=== PATIENT | female | born 1940 | race Caucasian/White ===

== ENCOUNTER → 2017-04-04 | Outpatient (CLI) | payer MEDICARE ==
[~2017-04-04] MED LIST: ACET-2469 PO; ALPR0.254 PO; AMIO100T4 PO; ASP81TEC; CIPR-225 PO; DABI150C5 PO; DICY10CA12 PO; DLT240CCR; FLC100T; HYDR-3874 PO; LEVO100T7 PO; LEVO125T6 PO; LISI1TAB8 PO; LISI2.5T PO; LVT.15T; MELO15TA39 PO; NITR100C3; PRV20T; SOTA120T PO; [UNRECOGNIZED DRUG - OTHER] PO
--- NOTE | 2017-04-04 13:42 | Diagnostic Imaging Report ---
PROCEDURE: CT abdomen and pelvis without contrast. TECHNIQUE: Multiple contiguous axial images were obtained through the abdomen and pelvis without the use of intravenous contrast. INDICATION: Hematuria, frequent urinary tract infections. COMPARISON: No priors. FINDINGS: There is dilatation of the left-sided extrarenal pelvis without calyceal distention. Layering within the dependent portion of the left extrarenal pelvis is elongated stone or adjacent stone fragments layering dependently with an aggregate dimension of 4.5 x 1.7 mm. There is no perinephric or periureteric edema. These are nonobstructing. Remaining left ureter nondilated without stone. The left lower pole calyceal calculus measured 3 mm. The right kidney is without stone but does show a few parapelvic cysts. There are postsurgical changes to the urinary bladder which appeared otherwise normal. Unopacified liver, gallbladder, bile ducts, spleen, adrenals, and pancreas are unremarkable. Some very mild hazy induration and increased density along the fat of the mesenteric root with few tiny 4-5 mm scattered mesenteric lymph nodes. No suspicious abdominopelvic alena mass. There is no bowel, biliary or urinary tract obstruction. There is no ascites or fluid collection. No pneumatosis or free gas. IMPRESSION: Left-sided nephrolithiasis. There is dilatation of the left renal pelvis which is extrarenal but no calyceal distention or hydronephrosis. Within its dependent portion, layering stones or an elongated calculus noted, dimensions above, nonobstructing. Mild infiltration of the mesenteric root with scattered tiny shotty mesenteric nodes. No suspicious mass. Postoperative changes in the pelvis. No focal inflammatory process. Dictated by: Dictated on workstation # [id number]
== END ==
LOC: RAD 08:39
PROVIDERS: ATTEND Urology
DX: R31.9 Hematuria, unspecified (principal); N20.0 Calculus of kidney
CPT/HCPCS: 74176

== ENCOUNTER 2018-08-05 11:33 | Outpatient (CLI) | payer MEDICARE ==
[~2018-08-05] VITALS: Ht 157.5 cm; Wt 86.3 kg
[~2018-08-05 11:33] MED LIST changes: +HYDR-3870 PO; -HYDR-3874 PO
[2018-08-05 11:48] VITALS: BP 119/65
[2018-08-05] MEDS ORDERED: APIX5TAB PO (12:00)
[2018-08-05] MEDS ORDERED: ESTR0.5T PO (12:00)
[2018-08-05] MEDS ORDERED: TRIM100T PO (12:00)
--- NOTE | 2018-08-05 12:43 | Diagnostic Imaging Report ---
CLINICAL INDICATION: Preop right total knee. No chest complaints. EXAM: Chest x-ray, PA and lateral views. COMPARISONS: Chest x-ray dated 11/04/2016. FINDINGS: Lungs/pleura: Lungs are clear. There is no pneumothorax. There is no pleural effusion. Mediastinum: Unremarkable. Pulmonary vasculature: Unremarkable. Heart: Unremarkable. Bones/extrathoracic soft tissue: There are moderately hypertrophic degenerative osteophytes scattered throughout the thoracic spine. IMPRESSION: There is no radiographic evidence of acute cardiopulmonary process. Dictated by: Dictated on workstation # [id number]
[2018-08-05 12:55] LABS: BASOPHILS % (AUTO) 0 % (0-10); EOSINOPHILS # (AUTO) 0.1 10^3/uL (0.0-0.3); EOSINOPHILS % (AUTO) 1 % (0-10); HEMATOCRIT 39 % (35-52); HEMOGLOBIN 12.8 G/DL (11.5-16.0); LYMPHOCYTES # (AUTO) 0.9 X 10^3 (1.0-4.0); LYMPHOCYTES % (AUTO) 15 % (12-44); MEAN CORPUSCULAR HEMOGLOBIN 31 PG (25-34); MEAN CORPUSCULAR HGB CONC 33 G/DL (32-36); MEAN CORPUSCULAR VOLUME 93 FL (80-99); MEAN PLATELET VOLUME 10.5 FL (7.4-10.4); MONOCYTES # (AUTO) 0.6 X 10^3 (0.0-1.0); MONOCYTES % (AUTO) 10 % (0-12); NEUTROPHILS # (AUTO) 4.2 X 10^3 (1.8-7.8); NEUTROPHILS % (AUTO) 74 % (42-75); PLATELET COUNT 289 10^3/uL (130-400); RED BLOOD COUNT 4.16 10^6/uL (4.35-5.85); WHITE BLOOD COUNT 5.7 10^3/uL (4.3-11.0)
[2018-08-05 13:00] LABS: BILIRUBIN,URINE NEGATIVE (NEGATIVE); CLARITY,URINE CLEAR; COLOR,URINE YELLOW; GLUCOSE, URINE (UA) NEGATIVE (NEGATIVE); KETONES,URINE NEGATIVE (NEGATIVE); LEUKOCYTE ESTERASE ,URINE 3+ (NEGATIVE); NITRITE,URINE NEGATIVE (NEGATIVE); PH,URINE 5 (5-9); PROTEIN,URINE NEGATIVE (NEGATIVE); UROBILINOGEN,URINE NORMAL (NORMAL)
[2018-08-05 13:18] LABS: ALBUMIN 4.1 GM/DL (3.2-4.5); BILIRUBIN,TOTAL 0.8 MG/DL (0.1-1.0); CALCIUM 9.5 MG/DL (8.5-10.1); CREATININE SERUM 1.27 MG/DL (0.60-1.30); TOTAL PROTEIN 6.8 GM/DL (6.4-8.2)
[2018-08-05 13:19] LABS: INR 1.2 (0.8-1.4); PROTHROMBIN TIME PATIENT 15.4 SEC (12.2-14.7)
[2018-08-05 13:24] LABS: RBC,URINE RARE /HPF
[2018-08-05 13:25] LABS: BACTERIA,URINE NEGATIVE /HPF; WBC,URINE 25-50 /HPF
[2018-08-05 13:26] LABS: ERYTHROCYTE SEDIMENTATION RATE 40 MM/HR (0-30)
== END 2018-08-05 12:35 | disposition home or self-care (01) ==
LOC: PREOP 11:33
PROVIDERS: ATTEND Orthopaedic Surgery
DX: Z01.811 Encounter for preprocedural respiratory examination (principal); Z01.812 Encounter for preprocedural laboratory examination; Z11.2 Encounter for screening for other bacterial diseases; M17.11 Unilateral primary osteoarthritis, right knee; R53.83 Other fatigue; R82.99 Other abnormal findings in urine
CPT/HCPCS: 36415; 71046; 80053; 81000; 85025; 85610; 85652; 86850; 86900; 86901; 87081; 87088

== ENCOUNTER 2018-08-12 05:54 | Outpatient (CLI) | payer MEDICARE ==
--- NOTE | 2018-08-04 11:19 | HISTORY AND PHYSICAL ---
DATE OF SERVICE: ADMISSION HISTORY AND PHYSICAL DATE OF ADMISSION: 08/12/2018. This will be for inpatient admission for right total knee arthroplasty. The patient will require full inpatient admission due to comorbidities, pain management issues and physical therapy for gait training. HISTORY OF PRESENT ILLNESS: The patient is a 77-year-old female complains of progressively worsening right knee pain. She has been treated for years with injections. She has a history of chronic urinary tract infection on chronic suppressive therapy. She reports only one urinary tract infection in the recent past. She reports pain with activities. She reports activity limitations because of the knee. Due to functional impairment and failure to improve with conservative measures, the patient has elected to proceed with surgical intervention. REVIEW OF SYSTEMS: No chest pain, no shortness of breath. No dysuria. PAST MEDICAL HISTORY: Coronary artery disease, CKD stage III, hypertension, osteoarthritis, mitral regurgitation, atrial fibrillation, dyslipidemia, hypothyroidism. PAST SURGICAL HISTORY: Herniated diskectomy, thyroidectomy, hiatal herniorrhaphy, hysterectomy, bladder x3, breast biopsy, coronary catheterization. FAMILY HISTORY: Significant for ischemic heart disease, diabetes. PRIMARY CARE PROVIDER: Dr. Mendoza. MEDICATIONS: Lisinopril, meloxicam, Eliquis, estradiol, ondansetron, acetaminophen, levothyroxine, alprazolam, Tylenol. ALLERGIES: STATINS AND . SOCIAL HISTORY: The patient denies alcohol, tobacco use. RADIOGRAPHS: Reveal severe tricompartmental osteoarthritis. PHYSICAL EXAMINATION: GENERAL: The patient is a well-developed, well-nourished, no acute distress. HEENT: Normocephalic, atraumatic. Pupils are equal, round and reactive to light. Oropharynx is clear. NECK: Supple. No lymphadenopathy. LUNGS: Clear to auscultation bilaterally. HEART: Regular rate and rhythm. ABDOMEN: Soft, nontender, nondistended. EXTREMITIES: Right knee demonstrates varus alignment, moderate effusion. Range of motion is 0/3/120. She assistance to rise from a seated position. She ambulates with an antalgic gait. There is no varus valgus laxity. Negative anterior and posterior drawer. No skin lesions were noted. IMPRESSION: Severe right knee osteoarthritis, unresponsive to conservative measures. PLAN: Right total knee arthroplasty. The risks, benefits, options, ramifications and recovery have been discussed at length with the patient. She understands and wishes to proceed. Job ID: [id number] DocumentID: [id number] Dictated Date: 08/04/2018 10:35:16 [employer] Program Director Date: 08/04/2018 11:18:12 Dictated By: ALBERTO LOERA MD
[~2018-08-12] VITALS: Ht 157.5 cm; Wt 86.3 kg
[~2018-08-12 05:54] MED LIST changes: +APIX5TAB PO; +ESTR0.5T PO; +TRIM100T PO
--- OUTSIDE RECORDS SUMMARY | 2018-08-12 06:00 | XMS REPORT | Continuity of Care Document ---
Author Author [facility] Organization [facility] Address Unknown Phone Unavailable Allergies Active Description Code Type Severity Reaction Onset Reported/Identified Relationship to Patient Clinical Status Yes NKANo Known Allergies NKA Miscellaneous Allergy Mild N/A 09/28/2008 Yes Cifcbsa-Wdd-Kyp Reductase Inhibitor [id number] Drug Allergy Moderate WEAKNESS 11/04/2016 Yes aspirin [id number] Drug Allergy Unknown N/A 11/04/2016 Yes methocarbamol [id number] Drug Allergy Unknown N/A 11/04/2016 Medications There is no data. Problems Date Dx Coded Attending Type Code Diagnosis Diagnosed By 11/07/2014 KATHARINA NEW MD Ot 793.80 11/08/2014 KATHARINA NEW MD Ot 793.80 08/09/2015 Ot V76.12 11/04/2016 Ot 611.72 LUMP OR MASS IN BREAST 11/04/2016 Ot V76.12 OTH SCREEN MAMMO-MALIGN NEOPLASM OF [place] 11/04/2016 Ot 611.72 LUMP OR MASS IN BREAST 11/04/2016 Ot 793.80 UNSPEC ABNORMAL MAMMOGRAM 11/04/2016 Ot 793.89 OTH (ABN) FINDINGS ON RADIOLOGICAL EXAMI 11/04/2016 Ot V76.12 OTH SCREEN MAMMO-MALIGN NEOPLASM OF [place] 11/04/2016 Ot 787.60 FULL INCONTINENCE OF FECES 11/04/2016 Ot V72.84 EXAM PRE- OPERATIVE NOS 11/04/2016 Ot 793.89 OTH (ABN) FINDINGS ON RADIOLOGICAL EXAMI 11/04/2016 Ot V67.9 FOLLOW-UP EXAM NOS 11/04/2016 KATHARINA NEW MD Ot V76.12 OTH SCREEN MAMMO-MALIGN NEOPLASM OF [place] 11/04/2016 KATHARINA NEW MD Ot V76.12 OTH SCREEN MAMMO-MALIGN NEOPLASM OF [place] 11/04/2016 KATHARINA NEW MD Ot 793.80 UNSPEC ABNORMAL MAMMOGRAM 11/04/2016 VIRGEN SINGLETON, KATHARINA Garsia Ot 793.80 UNSPEC ABNORMAL MAMMOGRAM 11/04/2016 Ot V76.12 OT SCREEN MAMMO-MALIGN NEOPLASM OF [place] 11/04/2016 YUNG PIÑA MD Ot N81.10 CYSTOCELE, UNSPECIFIED 11/04/2016 YUNG PIÑA MD Ot R32 UNSPECIFIED URINARY INCONTINENCE 11/04/2016 YUNG PIÑA MD Ot Z01.810 ENCOUNTER FOR PREPROCEDURAL CARDIOVASCUL 11/04/2016 YUNG PIÑA MD Ot Z01.811 ENCOUNTER FOR PREPROCEDURAL RESPIRATORY 11/04/2016 YUNG PIÑA MD Ot Z01.812 ENCOUNTER FOR PREPROCEDURAL LABORATORY E 11/04/2016 YUNG PIÑA MD Ot Z11.2 ENCOUNTER FOR SCREENING FOR OTHER BACTER 11/05/2016 YUNG PIÑA MD Ot N81.10 CYSTOCELE, UNSPECIFIED 11/05/2016 YUNG PIÑA MD Ot R32 UNSPECIFIED URINARY INCONTINENCE 11/05/2016 YUNG PIÑA MD Ot Z01.810 ENCOUNTER FOR PREPROCEDURAL CARDIOVASCUL 11/05/2016 YUNG PIÑA MD Ot Z01.811 ENCOUNTER FOR PREPROCEDURAL RESPIRATORY 11/05/2016 YUNG PIÑA MD Ot Z01.812 ENCOUNTER FOR PREPROCEDURAL LABORATORY E 11/05/2016 YUNG PIÑA MD Ot Z11.2 ENCOUNTER FOR SCREENING FOR OTHER BACTER 11/05/2016 YUNG PIÑA MD Ot N81.10 CYSTOCELE, UNSPECIFIED 11/05/2016 YUNG PIAÑ MD Ot R32 UNSPECIFIED URINARY INCONTINENCE 11/05/2016 YUNG PIÑA MD Ot Z01.810 ENCOUNTER FOR PREPROCEDURAL CARDIOVASCUL 11/05/2016 YUNG PIÑA MD Ot Z01.811 ENCOUNTER FOR PREPROCEDURAL RESPIRATORY 11/05/2016 YUNG PIÑA MD Ot Z01.812 ENCOUNTER FOR PREPROCEDURAL LABORATORY E 11/05/2016 YUNG PIÑA MD Ot Z11.2 ENCOUNTER FOR SCREENING FOR OTHER BACTER 11/10/2016 YUNG PIÑA MD Ot N81.10 CYSTOCELE, UNSPECIFIED 11/10/2016 YUNG PIÑA MD Ot R32 UNSPECIFIED URINARY INCONTINENCE 11/10/2016 YUNG PIÑA MD Ot Z01.810 ENCOUNTER FOR PREPROCEDURAL CARDIOVASCUL 11/10/2016 YUNG PIÑA MD Ot Z01.811 ENCOUNTER FOR PREPROCEDURAL RESPIRATORY 11/10/2016 YUNG PIÑA MD Ot Z01.812 ENCOUNTER FOR PREPROCEDURAL LABORATORY E 11/10/2016 YUNG PIÑA MD Ot Z11.2 ENCOUNTER FOR SCREENING FOR OTHER BACTER 11/13/2016 YUNG PIÑA MD Ot I10 ESSENTIAL (PRIMARY) HYPERTENSION 11/13/2016 YUNG PIÑA MD Ot I25.10 ATHSCL HEART DISEASE OF [place] CORONARY 11/13/2016 YUNG PIÑA MD Ot I48.91 UNSPECIFIED ATRIAL FIBRILLATION 11/13/2016 YUNG PIÑA MD Ot N81.10 CYSTOCELE, UNSPECIFIED 11/13/2016 YUNG PIÑA MD Ot R32 UNSPECIFIED URINARY INCONTINENCE 11/13/2016 YUNG PIÑA MD Ot Z79.899 OTHER [facility] (CURRENT) DRUG THERAPY 11/14/2016 YUNG PIÑA MD Ot I10 ESSENTIAL (PRIMARY) HYPERTENSION 11/14/2016 YUNG PIÑA MD Ot I25.10 ATHSCL HEART DISEASE OF [place] CORONARY 11/14/2016 YUNG PIÑA MD Ot I48.91 UNSPECIFIED ATRIAL FIBRILLATION 11/14/2016 YUNG PIÑA MD Ot N81.10 CYSTOCELE, UNSPECIFIED 11/14/2016 YUNG PIÑA MD Ot R32 UNSPECIFIED URINARY INCONTINENCE 11/14/2016 YUNG PIÑA MD, Ot Z79.899 OTHER [facility] (CURRENT) DRUG THERAPY 04/09/2017 YUNG PIÑA MD Ot N20.0 CALCULUS OF KIDNEY 04/09/2017 YUNG PIÑA MD Ot R31.9 HEMATURIA, UNSPECIFIED 04/29/2017 YUNG PIÑA MD Ot N20.0 CALCULUS OF KIDNEY 04/29/2017 YUNG PIÑA MD Ot R31.9 HEMATURIA, UNSPECIFIED 05/06/2017 YUNG PIÑA MD Ot N20.0 CALCULUS OF KIDNEY 05/06/2017 YUNG PIÑA MD Ot R31.9 HEMATURIA, UNSPECIFIED Procedures There is no data. Results Test Result Range Complete blood count (CBC) with automated white blood cell (WBC) differential - 11/04/16 15:20 Blood leukocytes automated count (number/volume) 7.0 10*3/uL 4.3-11.0 Blood erythrocytes automated count (number/volume) 4.00 10*6/uL 4.35-5.85 Venous blood hemoglobin measurement (mass/volume) 12.4 g/dL 11.5-16.0 Blood hematocrit (volume fraction) 39 % 35-52 Automated erythrocyte mean corpuscular volume 97 [foz_us] 80-99 Automated erythrocyte mean corpuscular hemoglobin (mass per erythrocyte) 31 pg 25-34 Automated erythrocyte mean corpuscular hemoglobin concentration measurement ( mass/volume) 32 g/dL 32-36 Automated erythrocyte distribution width ratio 13.5 % 10.0-14.5 Automated blood platelet count (count/volume) 239 10*3/uL 130-400 Automated blood platelet mean volume measurement 11.3 [foz_us] 7.4-10.4 Automated blood neutrophils/100 leukocytes 78 % 42-75 Automated blood lymphocytes/100 leukocytes 12 % 12-44 Blood monocytes/100 leukocytes 9 % 0-12 Automated blood eosinophils/100 leukocytes 1 % 0-10 Automated blood basophils/100 leukocytes 0 % 0-10 Blood neutrophils automated count (number/volume) 5.4 10*3 1.8-7.8 Blood lymphocytes automated count (number/volume) 0.8 10*3 1.0-4.0 Blood monocytes automated count (number/volume) 0.6 10*3 0.0-1.0 Automated eosinophil count 0.1 10*3/uL 0.0-0.3 Automated blood basophil count (count/volume) 0.0 10*3/uL 0.0-0.1 Comprehensive metabolic panel - 11/04/16 15:20 Serum or plasma sodium measurement (moles/volume) 144 mmol/L 135-145 Serum or plasma potassium measurement (moles/volume) 4.3 mmol/L 3.6-5.0 Serum or plasma chloride measurement (moles/volume) 112 mmol/L 98-107 Carbon dioxide 23 mmol/L 21-32 Serum or plasma anion gap determination (moles/volume) 9 mmol/L 5-14 Serum or plasma urea nitrogen measurement (mass/volume) 18 mg/dL 7-18 Serum or plasma creatinine measurement (mass/volume) 1.48 mg/dL 0.60-1.30 Serum or plasma urea nitrogen/creatinine mass ratio 12 NRG Serum or plasma creatinine measurement with calculation of estimated glomerular filtration rate 34 NRG Serum or plasma glucose measurement (mass/volume) 73 mg/dL 70-105 Serum or plasma calcium measurement (mass/volume) 8.9 mg/dL 8.5-10.1 Serum or plasma total bilirubin measurement (mass/volume) 0.7 mg/dL 0.1-1.0 Serum or plasma alkaline phosphatase measurement (enzymatic activity/volume) 65 U/L 40-136 Serum or plasma aspartate aminotransferase measurement (enzymatic activity/ volume) 15 U/L 5-34 Serum or plasma alanine aminotransferase measurement (enzymatic activity/volume ) 10 U/L 0-55 Serum or plasma protein measurement (mass/volume) 6.5 g/dL 6.4-8.2 Serum or plasma albumin measurement (mass/volume) 3.9 g/dL 3.2-4.5 Methicillin resistant Staphylococcus aureus (MRSA) screening culture - 15:20 Methicillin resistant Staphylococcus aureus (MRSA) screening culture [facility] Complete blood count (CBC) with automated white blood cell (WBC) differential - 08/05/18 12:20 Blood leukocytes automated count (number/volume) 5.7 10*3/uL 4.3-11.0 Blood erythrocytes automated count (number/volume) 4.16 10*6/uL 4.35-5.85 Venous blood hemoglobin measurement (mass/volume) 12.8 g/dL 11.5-16.0 Blood hematocrit (volume fraction) 39 % 35-52 Automated erythrocyte mean corpuscular volume 93 [foz_us] 80-99 Automated erythrocyte mean corpuscular hemoglobin (mass per erythrocyte) 31 pg 25-34 Automated erythrocyte mean corpuscular hemoglobin concentration measurement ( mass/volume) 33 g/dL 32-36 Automated erythrocyte distribution width ratio 13.0 % 10.0-14.5 Automated blood platelet count (count/volume) 289 10*3/uL 130-400 Automated blood platelet mean volume measurement 10.5 [foz_us] 7.4-10.4 Automated blood neutrophils/100 leukocytes 74 % 42-75 Automated blood lymphocytes/100 leukocytes 15 % 12-44 Blood monocytes/100 leukocytes 10 % 0-12 Automated blood eosinophils/100 leukocytes 1 % 0-10 Automated blood basophils/100 leukocytes 0 % 0-10 Blood neutrophils automated count (number/volume) 4.2 10*3 1.8-7.8 Blood lymphocytes automated count (number/volume) 0.9 10*3 1.0-4.0 Blood monocytes automated count (number/volume) 0.6 10*3 0.0-1.0 Automated eosinophil count 0.1 10*3/uL 0.0-0.3 Automated blood basophil count (count/volume) 0.0 10*3/uL 0.0-0.1 Comprehensive metabolic panel - 08/05/18 12:20 Serum or plasma sodium measurement (moles/volume) 140 mmol/L 135-145 Serum or plasma potassium measurement (moles/volume) 4.0 mmol/L 3.6-5.0 Serum or plasma chloride measurement (moles/volume) 107 mmol/L 98-107 Carbon dioxide 22 mmol/L 21-32 Serum or plasma anion gap determination (moles/volume) 11 mmol/L 5-14 Serum or plasma urea nitrogen measurement (mass/volume) 20 mg/dL 7-18 Serum or plasma creatinine measurement (mass/volume) 1.27 mg/dL 0.60-1.30 Serum or plasma urea nitrogen/creatinine mass ratio 16 NRG Serum or plasma creatinine measurement with calculation of estimated glomerular filtration rate 41 NRG Serum or plasma glucose measurement (mass/volume) 99 mg/dL 70-105 Serum or plasma calcium measurement (mass/volume) 9.5 mg/dL 8.5-10.1 Serum or plasma total bilirubin measurement (mass/volume) 0.8 mg/dL 0.1-1.0 Serum or plasma alkaline phosphatase measurement (enzymatic activity/volume) 69 U/L 40-136 Serum or plasma aspartate aminotransferase measurement (enzymatic activity/ volume) 15 U/L 5-34 Serum or plasma alanine aminotransferase measurement (enzymatic activity/volume ) 13 U/L 0-55 Serum or plasma protein measurement (mass/volume) 6.8 g/dL 6.4-8.2 Serum or plasma albumin measurement (mass/volume) 4.1 g/dL 3.2-4.5 CALCIUM CORRECTED 9.4 mg/dL 8.5-10.1 PT panel in platelet poor plasma by coagulation assay - 08/05/18 12:20 Prothrombin time (PT) in platelet poor plasma by coagulation assay 15.4 s 12.2-14.7 INR in platelet poor plasma or blood by coagulation assay 1.2 0.8-1.4 Erythrocyte sedimentation rate by westergren method - 08/05/18 12:20 Erythrocyte sedimentation rate by westergren method 40 mm 0-30 Blood type T Indirect antibody screen panel - 08/05/18 12:20 ABO+Rh group AP NRG Blood group antibody screen NEGATIVE NRG Methicillin resistant Staphylococcus aureus (MRSA) screening culture - 12:20 Methicillin resistant Staphylococcus aureus (MRSA) screening culture NEG NRG Complete urinalysis with reflex to culture - 08/05/18 12:25 Urine color determination YELLOW NRG Urine clarity determination CLEAR NRG Urine pH measurement by test strip 5 5-9 Specific gravity of urine by test strip 1.020 1.016- 1.022 Urine protein assay by test strip, semi-quantitative NEGATIVE NEGATIVE Urine glucose detection by automated test strip NEGATIVE NEGATIVE Erythrocytes detection in urine sediment by light microscopy 2+ NEGATIVE Urine ketones detection by automated test strip NEGATIVE NEGATIVE Urine nitrite detection by test strip NEGATIVE NEGATIVE Urine total bilirubin detection by test strip NEGATIVE NEGATIVE Urine urobilinogen measurement by automated test strip (mass/volume) NORMAL NORMAL Urine leukocyte esterase detection by dipstick 3+ NEGATIVE Automated urine sediment erythrocyte count by microscopy (number/high power field) RARE NRG Automated urine sediment leukocyte count by microscopy (number/high power field ) [HPF] NRG Bacteria detection in urine sediment by light microscopy NEGATIVE NRG Squamous epithelial cells detection in urine sediment by light microscopy 10-25 NRG Crystals detection in urine sediment by light microscopy NONE NRG Casts detection in urine sediment by light microscopy PRESENT NRG Mucus detection in urine sediment by light microscopy SMALL NRG Complete urinalysis with reflex to culture YES NRG Hyaline casts detection in urine sediment by light microscopy 5-10 NRG Renal epithelial cells detection in urine sediment by light microscopy NONE NRG Bacterial urine culture - 08/05/18 12:25 Encounters ACCT No. Visit Date/Time Discharge Status Pt. Type Provider Facility Loc./Unit Complaint [id number] 04/04/2017 08:39:00 04/04/2017 23:59:59 CLS Outpatient YUNG PIÑA MD [facility] RAD HEMATURIA [id number] 11/12/2016 06:25:00 11/13/2016 12:40:00 DIS Outpatient YUNG PIÑA MD [facility] SDC CYSTOCELE [id number] 11/04/2016 14:00:00 11/04/2016 16:00:00 DIS Outpatient YUNG PIÑA MD [facility] PREOP CYSTOCELE [id number] 10/07/2014 08:48:00 10/07/2014 23:59:59 CLS Outpatient KATHARINA NEW MD [facility] RAD 3 MONTH FOLLOW UP [id number] 07/26/2014 13:14:00 07/26/2014 23:59:59 CLS Outpatient KATHARINA NEW MD [facility] RAD ABNORMAL MAMMO [id number] 07/12/2014 14:24:00 07/12/2014 23:59:59 CLS Outpatient KATHARINA NEW MD [facility] RAD SCREENING [id number] 07/09/2013 09:40:00 07/09/2013 23:59:59 CLS Outpatient KATHARINA NEW MD [facility] RAD SCREENING [id number] 08/12/2018 05:54:00 ACT Inpatient ALBERTO LOERA MD [facility] SURG OSTEOARTHRITIS OF RIGHT KNEE [id number] 08/05/2018 13:00:00 Document Registration [id number] 07/17/2015 10:42:00 Document Registration [id number] 02/11/2013 07:53:00 Document Registration [id number] 10/08/2012 06:57:00 Document Registration [id number] 10/07/2012 08:05:00 Document Registration [id number] 07/08/2012 12:10:00 Document Registration [id number] 10/22/2011 13:17:00 Document Registration [id number] 07/16/2011 12:59:00 Document Registration [id number] 06/28/2011 11:27:00 Document Registration
[2018-08-12 06:20] VITALS: BP 110/79
[2018-08-12] MEDS ORDERED: LACTATED RINGERS 1,000 ML IV PRN (06:34)
[2018-08-12] MEDS ORDERED: FAMOTIDINE 20MG/2ML IV (PEPCID) IV ONE (06:45)
[2018-08-12] MEDS ORDERED: SCOPOLAMINE 1.5 MG (TRANSDERM-SCOP) PATCH TOP ONE (06:45)
[2018-08-12] MEDS ORDERED: CEFUROXIME INJECTION 1,500 MG in NS (IVPB) 50 ML IV ONE (06:45)
[2018-08-12] MEDS ORDERED: ONDANSETRON 4 MG/2 ML (SDV) Z0FRAN IV ONE (06:45)
--- NOTE | 2018-08-12 07:18 | Progress Note-Standard ---
Standard Progress Note Progress Notes/Assess & Plan Date Seen by Provider: Aug 12, 2018 Time Seen by Provider: 07:10 Progress/Assessment & Plan Patient arrived to same day surgery for total knee replacement procedure. Patient noted to have an irregular wave form on Pulse oximetry wave form. Patient then hooked to 3 lead ecg in room. Noted to be in A-fib with a rate of 120-130 with apical/brachial disassociation. Spoke with Dr. Martins about situation and agreed patient needed to see physician to assist in rate control. Dr. Albrecht notified of situation. Spoke with patient and explained situation. Patient instructed to call Dr. Mora's office to set up a follow-up appoint and to call Dr. Albrecht's office after seen by Dr. Mora to set up Surgery. PEDRITO COTTRELL CRNA Aug 12, 2018 07:18
[2018-08-19] MEDS ORDERED: OXYC1TAB87 PO (09:12)
== END 2018-08-12 07:20 | disposition home or self-care (01) ==
LOC: UNDOADMIN 05:54 → 4TH 05:54 → SDC 05:54 → SURG 05:55 → 4TH 05:55 → UNDODISIN 07:20 → SDC 07:20 → EDSTATUS 08:00
PROVIDERS: ATTEND Orthopaedic Surgery
DX: M17.11 Unilateral primary osteoarthritis, right knee (principal); I48.91 Unspecified atrial fibrillation; Z53.09 Procedure and treatment not carried out because of other contraindication; I25.10 Atherosclerotic heart disease of native coronary artery without angina pectoris; I12.9 Hypertensive chronic kidney disease with stage 1 through stage 4 chronic kidney disease, or unspecified chronic kidney disease; N18.3 Chronic kidney disease, stage 3 (moderate); I34.0 Nonrheumatic mitral (valve) insufficiency; E78.5 Hyperlipidemia, unspecified; E03.9 Hypothyroidism, unspecified; Z79.01 Long term (current) use of anticoagulants
CPT/HCPCS: 86850; 86900; 86901

== ENCOUNTER 2018-08-19 08:25 | Inpatient (IN) | payer MEDICARE ==
[~2018-08-19] VITALS: Ht 157.5 cm; Wt 86.3 kg
[2018-08-19] MEDS ORDERED: CEFUROXIME INJECTION 1,500 MG in NS (IVPB) 50 ML IV ONE (08:45)
[2018-08-19 09:00] VITALS: BP 139/89
[2018-08-19] MEDS: LACTATED RINGERS 1,000 ML IV PRN ×2 (09:00→10:47)
--- NOTE | 2018-08-19 09:10 | Progress Note-Pre Operative ---
Pre-Operative Progress Note H&P Reviewed The H&P was reviewed, patient examined and no changes noted. Date Seen by Provider: Aug 19, 2018 Time Seen by Provider: 09:10 Date H&P Reviewed: Aug 19, 2018 Time H&P Reviewed: 09:10 Pre-Operative Diagnosis: right knee primary osteoarhtritis ALBERTO LOERA MD Aug 19, 2018 09:10
--- NOTE | 2018-08-19 09:11 | Progress Note-Post Operative ---
Post-Operative Progess Note Surgeon (s)/Clay Worker (s) Surgeon ALBERTO LOERA MD Clay Worker: Bob Dye Pre-Operative Diagnosis right knee primary osteoarhtritis Post-Operative Diagnosis right knee primary osteoarthritis Procedure & Operative Findings Date of Procedure 08/19/18 Procedure Performed/Findings right total knee arthroplasty Anesthesia Type GETA Estimated Blood Loss Estimated blood loss (mL): minimal Specimens/Packing Specimens Removed none Packing: none ALBERTO LOERA MD Aug 19, 2018 09:11
[2018-08-19] MEDS ORDERED: OXYC1TAB87 PO (09:12)
[2018-08-19] MEDS ORDERED: MIDAZOLAM 2 MG/2 ML (VERSED) VIAL ONE (09:13)
--- NOTE | 2018-08-19 09:14 | D/C HH Face to Face Order ---
D/C Face to Face Orders Instructions for Patient Patient Instructions/FollowUp: three weeeks Physician to follow Patient: three weeks Discharge Diet for Home: Regular Diet Patient Data-Allergies,Ht & Wt Patient Allergies: Coded Allergies: Tpxyxtx-Efl-Kgs Reductase Inhibitor (Verified Allergy, Intermediate, WEAKNESS, 11/04/16) aspirin (Unverified Allergy, Unknown, 11/04/16) methocarbamol (Unverified Allergy, Unknown, 11/04/16) Height (Feet): 5 Height (Inches): 2.00 Weight (Pounds): 190 Weight (Ounces): 5.0 Home Health Need/Face to Face Date of Face to Face: Aug 19, 2018 Clinical Findings: Instability, Muscle weakness, Pain with ambulation, Unsteady gait I have seen Pt [id number]: Yes Discharged To: Home Diagnosis/Conditions: right total knee arthroplasty Patient is Homebound due to: [place] fall risk due to instabilty, Muscle weakness , Pain w/ambulation Homebound Status Due to the above stated illness, injury or surgical procedure (medical condition or diagnosis) and associated clinical findings, the patient is homebound because of his/her inability to leave home except with aid of a supportive device and/or person AND leaving the home requires a considerable and taxing effort or is medically contraindicated. Pt req the following assistanc: [facility] Health Nursing Orders Home Health Services Order: Physical Therapy-Evaluate & Treat Therapy Orders Therapy Orders: Physical Therapy, PT to assess for OT Therapy Specific Orders: Eval assistive deivces, Teach enviro modifications/ safety, Gait training, Increase strength/endurance, Provider maintenance therapy , Restore ROM (DC right knee mira and apply steri strips 09/02/18) Certify Stmt I certify that this patient is under my care and that I, a nurse practitioner or a physician; a digital assistant working with me, had a face to face encounter that - meets the physician face to face encounter requirements with this patient as dated. ALBERTO LOERA MD Aug 19, 2018 09:14
[2018-08-19] MEDS ORDERED: diphenhydrAMINE 50 MG/ML INJ (BENADRYL) IVP PRN (09:15)
[2018-08-19] MEDS ORDERED: ACETAMINOPHEN 325 MG TABLET PO PRN (09:15)
[2018-08-19] MEDS ORDERED: ONDANSETRON 4 MG/2 ML (SDV) Z0FRAN IVP PRN ×3 (09:15→12:00)
[2018-08-19] MEDS ORDERED: NS (IVPB) 33 ML, ROPIVACAINE INJECTION 275 MG, EPINEPHrine 1 MG INJECTION 0.5 MG, morp... IU ONE ×4 (09:30)
[2018-08-19] MEDS ORDERED: FAMOTIDINE 20MG/2ML IV (PEPCID) ONE (09:36)
[2018-08-19] MEDS ORDERED: LIDOCAINE JELLY 2% (XYLOCAINE) 5 ML TUBE ONE (09:41)
[2018-08-19] MEDS ORDERED: proPOfol 200 MG/20 ML (DIPRIVAN) VIAL IV ONE ×2 (09:41→10:57)
[2018-08-19] MEDS ORDERED: LIDOCAINE PF 2% 2 ML (XYLOCAINE) VIAL ONE ×2 (09:41→10:57)
[2018-08-19] MEDS ORDERED: ONDANSETRON 4 MG/2 ML (SDV) Z0FRAN IV ONE (10:00)
[2018-08-19] MEDS ORDERED: FAMOTIDINE 20MG/2ML IV (PEPCID) IV ONE (10:00)
[2018-08-19] MEDS ORDERED: fentaNYL INJECTION 100 MCG/2 ML AMP ONE ×2 (10:10→10:47)
[2018-08-19] MEDS ORDERED: DEXAMETHASONE 10 MG/ML (DECADRON) 1 ML VIAL ONE (10:57)
[2018-08-19] MEDS ORDERED: ROCURONIUM 10 MG/ML 5 ML SYRINGE IV ONE (10:57)
[2018-08-19] MEDS ORDERED: SEVOFLURANE (ULTANE) 15 ML INHAL SOLN ONE ×3 (11:00→12:48)
[2018-08-19] MEDS ORDERED: GLYCOPYRROLATE 0.2 MG/ML (ROBINUL) 2 ML VIAL ONE ×2 (11:15→11:56)
[2018-08-19] MEDS ORDERED: NEOSTIGMINE 1 MG/ML 5 ML SYRINGE ONE (11:15)
[2018-08-19] MEDS ORDERED: SUGAMMADEX 500 MG/5 ML VIAL (BRIDION) IV ONE (11:39)
[2018-08-19] MEDS ORDERED: ESMOLOL 100 MG/10 ML (BREVIBLOC) VIAL ONE (11:57)
[2018-08-19] MEDS ORDERED: meTOprolol 5 MG/5 ML (LOPRESSOR) VIAL ONE (11:57)
[2018-08-19] MEDS ORDERED: morphine INJ 10 MG/ML 1ML (SYR OR VIAL) IVP ONE (12:00)
[2018-08-19] MEDS ORDERED: fentaNYL INJECTION 100 MCG/2 ML AMP IVP ONE (12:00)
[2018-08-19] MEDS ORDERED: MEPERIDINE (DEMEROL) INJ 50 MG/ML IVP ONE ×2 (12:00)
[2018-08-19] MEDS ORDERED: HYDROmorphone 2 MG/ML VIAL (DILAUDID) IV ONE (12:00)
[2018-08-19] MEDS ORDERED: LABETALOL HCL 20 MG/4 ML VIAL ONE (12:41)
--- NOTE | 2018-08-19 12:57 | Progress Note-Standard ---
Standard Progress Note Progress Notes/Assess & Plan Date Seen by a Provider: Aug 19, 2018 Time Seen by a Provider: 12:56 Progress/Assessment & Plan no complaints radiographs--HW well positioned without fracture RLE--2 plus DP pulse with brisk cap refill. Intact sensation throughout. Intact DF and PF of toes and ankle s/p RTKA mobilize as able ALBERTO LOERA MD Aug 19, 2018 12:57
[2018-08-19] MEDS ORDERED: LABETALOL HCL 20 MG/4 ML VIAL IV ONE (13:00)
--- NOTE | 2018-08-19 13:06 | OPERATIVE REPORT ---
DATE OF SERVICE: 08/19/2018 PREOPERATIVE DIAGNOSIS: Right knee primary osteoarthritis. POSTOPERATIVE DIAGNOSIS: Right knee primary osteoarthritis. PROCEDURE: Right total knee arthroplasty. SURGEON: Chadd Loera MD. DIRECTOR SECURITY MANAGEMENT: MATT Cordero, who assisted throughout the procedure and closed the incision. ANESTHESIA: General endotracheal by Bob Short CRNA. TOURNIQUET TIME: Approximately 65 minutes at 300 mmHg. ESTIMATED BLOOD LOSS: Minimal. DRAINS: None. COMPLICATIONS: None. POSTOPERATIVE PLAN: Routine protocol. The patient was transferred to the recovery room awake and in stable condition. MATERIALS: MicroPort cemented size 4 femur, cemented size 4 tibia with a 12 mm insert and a cemented size 32 patella. STATEMENT OF MEDICAL NECESSITY: The patient is a 77-year-old female with longstanding progressive right knee pain. She has been treated with multiple conservative modalities. Radiographs revealed severe medial and patellofemoral arthrosis. Due to functional impairment and failure to improve with conservative measures, the patient elected to proceed with surgical intervention. DESCRIPTION OF PROCEDURE: After risks and benefits of the procedure were discussed and questions were answered, an informed consent was signed and placed on the chart. The operative site was confirmed in the preoperative holding area and initialed by the surgeon. The patient was then transported to the operating room. After adequate levels of general endotracheal anesthetic were obtained, a timeout was called confirming the operative site. The right lower extremity was prepped and draped in the usual sterile fashion with the leg elevated and the knee flexed, tourniquet was inflated to 300 mmHg. A standard anterior approach was utilized. Hemostasis was obtained with cautery. Medial parapatellar arthrotomy was performed leaving a 1 cm cuff on the patella for later reattachment. A portion of the fat pad was resected. A subperiosteal release was performed in the proximal medial tibia being careful to stay on the bony surface. The ACL was absent. The intramedullary guide was passed into the femur. The distal cutting block was placed and the distal cut was made. The femur was sized to a size 4 and the 4 cutting block was placed parallel to the epicondylar axis. Cuts were then made from posterior to anterior. The trochlear guide was placed and trochlear cut was made. A subperiosteal release was then carefully performed on the posterior distal femur being careful to stay on the bony surface. Intramedullary guide was then passed into the tibia. The cutting block was placed. The drop venita transected the intermalleolar axis and the cut was made. The #4 baseplate was placed and again the drop venita transected the intermalleolar axis. This was prepared with the drill and keel punch. The trials were inserted. The patella was then prepared by resecting 10 mm off the undersurface using freehand technique. The peg guide was placed and peg holes were drilled. A 32 trial was placed. A 12 mm insert was placed and the knee was taken through a range of motion. Full extension was easily obtained greater than 120 degrees of flexion with gravity was easily obtained. There was no anterior/posterior laxity in flexion or extension. There was a trace valgus laxity in full extension, otherwise no varus or valgus laxity. The trials were removed. The joint was copiously irrigated with pulse lavage. The periarticular block was placed in the posterior capsule, medial and lateral retinaculum extensor mechanism and subcutaneous tissues. The bone ends were irrigated and dried. The tibial component was placed. Excessive cement was removed and then the superior surface was irrigated and dried. The polyethylene insert was placed. The distal femur was irrigated and dried and the femoral prosthesis was cemented in position again removing excess of cement. The knee was brought out into full extension. The undersurface of the patella was irrigated and dried. The patellar button was cemented into position. Once the cement had cured, the knee was taken through a range of motion with full extension easily obtained 120 degrees of flexion with gravity was easily obtained. The patella tracked well. There was no anterior/posterior or medial/lateral laxity in flexion or extension. The arthrotomy was closed with a #2 [place]. After further irrigating the joint, the knee was flexed. The repair was stable and the patella tracked well. The subcutaneous tissues were irrigated with pulse lavage using a total of 6 liters throughout the procedure. A 0 Vicryl was used for deep subcutaneous tissue, 2-0 Vicryl for the superficial subcutaneous tissue and mira were used on the skin. A soft dressing was applied, the tourniquet was deflated and the patient was transferred to the recovery room awake and stable condition. Job ID: [id number] DocumentID: [id number] Dictated Date: 08/19/2018 11:45:35 Vp Integration Date: 08/19/2018 13:06:04 Dictated By: CHADD LOERA MD
[2018-08-19 13:13] VITALS: BP 163/89
[2018-08-19] MEDS ORDERED: NS IV 1000 ML 1,000 ML ONE (13:22)
[2018-08-19] MEDS ORDERED: morphine PCA 30 MG/30 ML VIAL IV ONE (13:23)
[2018-08-19] MEDS: NS IV 1000 ML 1,000 ML IV SCH ×2 (13:35→22:12)
[2018-08-19] MEDS: morphine PCA 30 MG/30 ML VIAL IV PRN (13:39)
--- NOTE | 2018-08-19 14:09 | Diagnostic Imaging Report ---
INDICATION: Postoperative. TECHNIQUE: 2 post operative radiographs of the knee 2 1 PM CORRELATION STUDY: None FINDINGS: There are postsurgical changes of a total knee arthroplasty. Alignment is anatomic. Installed hardware appearing unremarkable. Small periarticular bone fragments. Overlying soft tissue gas collections are present. IMPRESSION: Postsurgical changes of a total knee replacement. Dictated by: Dictated on workstation # [id number]
[2018-08-19] MEDS ORDERED: ALPRAZolam 0.25 MG (XANAX) TAB PO PRN (15:15)
--- NOTE | 2018-08-19 15:40 | Consultation-Hospitalist ---
HPI History of Present Illness: HPI/Chief Complaint Pt is a 77yoCF with a PMH of atrial fibrillation, HTN, hypothyroidism who was admitted following right TKA. Her only complaint at this time is her pain is a 10/10 despite her [employer] WORK[employer]. Her RN has already received ordered for oral pain medication. 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 She is tearful through our conversation and history is somewhat limited due to that. She is unsure of her home medications at this time. I did call and speak with Dr Mora's nurse to confirm her cardiac meds. She is on Eliquis but not on any rate controlling medications at this time. I am consulted for medical management. Source: patient, family Date Seen 08/19/18 Attending Physician Chadd Albrecht MD PCP Yariel Mendoza MD Referring Physician Date of Admission Aug 19, 2018 at 8:25 am Home Medications & Allergies Home Medications Reviewed patient Home Medication Reconciliation performed by pharmacy medication reconciliations agronomy technician and/or nursing. Patients Allergies have been reviewed. Allergies Allergies Coded Allergies Vzrntts-Vxv-Ilu Reductase Inhibitor (Verified Allergy, Intermediate, WEAKNESS , 11/04/16) aspirin (Unverified Allergy, Unknown, 11/04/16) methocarbamol (Unverified Allergy, Unknown, 11/04/16) Past Fzhqpfn-Nodjcx-Weyvlt Hx Past Med/Social Hx: Reviewed and Corrections made Patient Social History Marrital Status: Alcohol Use: Denies Use Recreational Drug Use: No Smoking Status: Never a Smoker Physical Abuse Screen: No Sexual Abuse: No Recent Foreign Travel: No Contact w/other who traveled: No Recent Hopitalizations: No Recent Infectious Disease Expo: No Immunizations Up To Date Date of Pneumonia Vaccine: April 07, 2016 Date of Influenza Vaccine: Aug 18, 2018 Seasonal Allergies Seasonal Allergies: Yes Past Medical History Surgeries: Abdominal, Appendectomy, Bladder Surgery, Hysterectomy, Thyroidectomy Cardiac: Atrial Fibrillation, Hypertension Reproductive: No Sexually Transmitted Disease: No HIV/AIDS: No Genitourinary: UTI-Chronic Gastrointestinal: Chronic Diarrhea Musculoskeletal: Arthritis, Chronic Back Pain Endocrine: Hypothyroidsim Loss of Vision: Bilateral Hearing Impairment: Denies History of Blood Disorders: No Adverse Reaction to Blood Key: No (HAS HAD BLOOD WITH NO REACTION) Family History Reviewed Nursing Family Hx Cardiovascular disease G8 SISTER Diabetes mellitus 19 FATHER G8 BROTHER G8 SISTER Hypertension 19 FATHER G8 SISTER Myocardial infarction 19 FATHER G8 BROTHER Diabetes, Hypertension Review of Systems Constitutional: No chills, No fever EENTM: No blurred vision, No double vision, No nose congestion, No throat pain Respiratory: No cough, No dyspnea on exertion, No short of breath Cardiovascular: No chest pain, No edema, No palpitations Gastrointestinal: No abdominal pain, No constipation, No diarrhea, No nausea, No vomiting Genitourinary: No dysuria, No frequency Musculoskeletal: joint pain Skin: No lesions, No rash Psychiatric/Neurological: Denies Headache, Denies Numbness, Denies Tingling Physical Exam Physical Exam Vital Signs Vital Signs - First Documented 08/19/18 08/19/18 09:00 13:13 Temp 97.3 Pulse 115 Resp 20 B/P (MAP) 139/89 (106) Pulse Ox 96 O2 Delivery Room Air O2 Flow Rate 3.00 Capillary Refill : Height, Weight, BMI Height: 5'2.00" Weight: 190lbs. 5.0oz. 86.903134wk; 34.8 BMI Method: General Appearance: WD/WN, Mild Distress (tearful, appears to be in pain) HEENT: PERRL/EOMI, Moist Mucous Membranes Neck: Non Tender, Supple Respiratory: Lungs Clear, No Respiratory Distress Cardiovascular: Regular Rate, Rhythm, No Murmur Gastrointestinal: Normal Bowel Sounds, Non Tender, Soft Extremity: Normal Capillary Refill, No Calf Tenderness, Other (right knee in surgical dressing) Neurologic/Psychiatric: Alert, Oriented x3, Normal Mood/Affect Skin: Normal Color, Warm/Dry Results Results/Procedures Labs Patient resulted labs reviewed. Assessment/Plan Assessment and Plan Assess & Plan/Chief Complaint s/p TKA Diagnosis/Problems Diagnosis/Problems (1) Osteoarthritis of right knee Assessment & Plan: s/p TKA POD #0 PT/OT Morphine [employer] WORKER management per primary Qualifiers: Osteoarthritis type: primary Qualified Codes: M17.11 - Unilateral primary osteoarthritis, right knee (2) Atrial fibrillation Assessment & Plan: Regular rate on exam Will add labetolol prn Resume Eliquis when ok with surgery Will place on telemetry Qualifiers: Atrial fibrillation type: paroxysmal Qualified Codes: I48.0 - Paroxysmal atrial fibrillation (3) Essential (primary) hypertension Assessment & Plan: BP slightly elevated Labetolol prn for SBP >170 Resume home BP meds tomorrow when no longer nauseated (4) Hypothyroidism Assessment & Plan: Post surgical Resume synthroid Qualifiers: Hypothyroidism type: acquired Qualified Codes: E03.9 - Hypothyroidism, unspecified Clinical Quality Measures DVT/VTE Risk/Contraindication: Risk Factor Score Per Nursin RFS Level Per Nursing on Admit: 4+=Very High JOSE F GONZALEZ MD Aug 19, 2018 3:39 pm
--- NOTE | 2018-08-19 15:48 | Physical Therapy Evaluation ---
PT Evaluation-General Medical Diagnosis Admission Date Aug 19, 2018 at 08:25 Medical Diagnosis: R TKA Onset Date: Aug 19, 2018 Therapy Diagnosis Therapy Diagnosis: impaired strength, ROM, balance, and mobility s/p R TKA Height/Weight Height (Feet): 5 Height (Inches): 2.00 Weight (Pounds): 190 Weight (Ounces): 5.0 Precautions Precautions/Isolations: Standard Precautions Weight Bear Status Right Lower Extremity: Right Weight Bearing/Tolerated Left Lower Extremity: Left Full Weight Bearing Referral Physician: Bob Dye Reason for Referral: Evaluation/Treatment Medical History Reviewed History: Yes Social History Home: Single Level Current Living Status: Spouse Entry Into Home: Level Entry Prior/Core FIM Prior Level of Function Functional [place] Measure 0=Not Assessed/NA 4=Minimal Assistance 1=Total Assistance 5=Supervision or Setup 2=Maximal Assistance 6=Modified [place] 3=Moderate Assistance 7=Complete [place] Bed Mobility: 6 Transfers (B,C,W/C) (FIM): 6 Gait: 6 Patient was using a SPC PT Evaluation-Current Subjective pt in bed pre tx with emesis basin, agrees to PT, reports pain 10/10 R knee and feeling very nauseous. Patient is very shaky and unsteady. Pt/Family Goals to be independent at home Objective Patient Orientation: Person, Place, Situation Attachments: SCD's, Oxygen, Polar Pack, IV ROM/Strength ROM Lower Extremities R knee flexion 40 degrees, extension +10 Strength Lower Extremities NT Neuromuscular (Tone, Coordination, Reflexes) NT Sensory Vision: Functional Hearing: Functional Sensation Right Lower Extremit: Intact Sensation Left Lower Extremity: Impaired Sensation Lower Extremities impaired light touch sensation in R lateral calf and foot Transfers Functional [place] Measure 0=Not Assessed/NA 4=Minimal Assistance 1=Total Assistance 5=Supervision or Setup 2=Maximal Assistance 6=Modified [place] 3=Moderate Assistance 7=Complete [place] Transfers (B, C, W/C) (FIM): 3 Scootin pt very nauseous during treatment, unable to assess transfers Gait Comments/Gait Description pt very nauseous, unable to assess gait Treatment TKA protocol (AP, HS, QS, SLR, x10). CPM donned and set to 36/-2, pt in bed post tx w/ phone, call light, tray, all needs met. SCDs and polar pack on. Assessment/Needs impaired strength, ROM, balance, and mobility s/p R TKA Rehab Potential: Fair PT Short Term Goals Short Term Goals Time Frame: Aug 26, 2018 Transfers (B,C,W/C) (FIM): 4 Gait (FIM): 2 Distance (FIM): 1=up to 49 ft Gait Distance Comment: >50' Gait Level of Assist: 4 Gait Assistive Device: FWW PT Plan Problem List Problem List: Activity Tolerance, Functional Strength, Safety, Balance, Gait, Transfer, Bed Mobility, ROM Treatment/Plan Treatment Plan: Continue Plan of Care Treatment Plan: Bed Mobility, Education, Functional Activity Khris, Functional Strength, Gait, Safety, Therapeutic Exercise, Transfers Treatment Duration: Aug 26, 2018 Frequency: 11 times per week Estimated Hrs Per Day: .25 hour per day (15-30') Patient and/or Family Agrees t: Yes Safety Risks/Education Patient Education: Gait Training, Transfer Techniques, Reviewed Precautions, Reviewed Use of Ice, Correct Positioning, Safety Issues Teaching Recipient: Patient Teaching Methods: Demonstration, Discussion Response to Teaching: Reinforcement Needed Discharge Recommendations Plan Pt will perform bed mobility and transfer training, gait training, balance training, functional strengthening/AROM, endurance training, and education to be independent at home Therapy D/C Recommendations: Home w/ Family Support Time/GCodes Time In: 1515 Time Out: 1545 Total Billed Treatment Time: 20 Total Billed Treatment 1 visit EVL 15' EX 15' GILMER MENDEZ PT Aug 19, 2018 15:48
[2018-08-19] MEDS: meTOprolol 5 MG/5 ML (LOPRESSOR) VIAL IV PRN ×2 (16:42→19:03)
[2018-08-19 16:50] VITALS: BP 156/87
[2018-08-19 16:59] VITALS: BP 166/87
[2018-08-19 17:00] VITALS: BP 144/92
[2018-08-19] MEDS: CEFUROXIME INJECTION 750 MG in NS (IVPB) 50 ML IV SCH (17:08)
[2018-08-19 20:45] VITALS: BP 138/67
[2018-08-19] MEDS: SENNA W/DOCUSATE (SENOKOT S) TABLET PO SCH (22:12)
[2018-08-19] MEDS: oxyCODONE/APAP 5/325MG (PERCOCET 5) TABLET PO PRN (22:13)
[2018-08-20 00:32] VITALS: BP 158/79
[2018-08-20] MEDS: CEFUROXIME INJECTION 750 MG in NS (IVPB) 50 ML IV SCH (00:40)
[2018-08-20] MEDS: NS IV 1000 ML 1,000 ML IV SCH ×2 (02:26→15:03)
[2018-08-20] MEDS: morphine PCA 30 MG/30 ML VIAL IV PRN ×2 (02:46→15:08)
[2018-08-20] MEDS: oxyCODONE/APAP 5/325MG (PERCOCET 5) TABLET PO PRN ×2 (04:02→13:37)
[2018-08-20 04:38] VITALS: BP 147/80
[2018-08-20] MEDS: MULTIVIT W/MINERALS TAB (THERAGRAN M) PO SCH (06:09)
[2018-08-20] MEDS: LEVOTHYROXINE 100 MCG (LEVOTHROID) TAB PO SCH (06:09)
[2018-08-20 06:42] LABS: HEMOGLOBIN 12.2 G/DL (11.5-16.0)
--- NOTE | 2018-08-20 07:05 | Anesthesia-General Post-Op ---
General Patient Condition Mental Status/LOC: Same as Preop Cardiovascular: Satisfactory Nausea/Vomiting: Absent Respiratory: Satisfactory Pain: Controlled Complications: Absent Post Op Complications Complications None Follow Up Care/Instructions Patient Instructions None needed. Anesthesia/Patient Condition Patient Condition Patient is doing well, no complaints, stable vital signs, no apparent adverse anesthesia problems. No complications reported per nursing. DAYAN PONCE CRNA Aug 20, 2018 07:05
--- NOTE | 2018-08-20 07:59 | Progress Note-Standard ---
Standard Progress Note Progress Notes/Assess & Plan Date Seen by a Provider: Aug 20, 2018 Time Seen by a Provider: 07:58 Progress/Assessment & Plan no complaints radiographs--HW well positioned without fracture RLE--2 plus DP pulse with brisk cap refill. Intact sensation throughout. Intact DF and PF of toes and ankle s/p RTKA mobilize as able Final Diagnosis No complaints Vital Signs Date Time Temp Pulse Resp B/P (MAP) Pulse Ox O2 Delivery O2 Flow Rate FiO2 08/20/18 07:00 144 08/20/18 04:38 97.7 99 17 147/80 (102) 98 Nasal Cannula 3.00 08/20/18 02:47 18 08/20/18 02:46 18 08/20/18 02:29 93 Nasal Cannula 2.00 08/20/18 01:00 105 08/20/18 00:32 97.9 107 18 158/79 (105) 99 Nasal Cannula 3.00 08/19/18 22:08 99 Nasal Cannula 2.00 08/19/18 20:45 98.6 95 20 138/67 (90) 98 Nasal Cannula 3.00 08/19/18 20:10 98 Nasal Cannula 2.00 08/19/18 19:11 98 Nasal Cannula 2.00 08/19/18 19:07 18 08/19/18 19:00 107 08/19/18 17:25 96 Nasal Cannula 2.00 08/19/18 17:00 105 20 144/92 (109) 95 Nasal Cannula 3.00 08/19/18 16:59 98.1 117 20 166/87 (113) 96 Nasal Cannula 2.00 08/19/18 16:50 98.1 117 20 156/87 (110) 96 Nasal Cannula 2.00 08/19/18 16:22 133 08/19/18 13:39 18 08/19/18 13:39 16 08/19/18 13:30 Nasal Cannula 3.00 08/19/18 13:13 96.9 113 16 163/89 (113) 98 Nasal Cannula 3.00 08/19/18 09:00 97.3 115 20 139/89 (106) 96 Room Air I & O 08/20/18 07:00 Intake Total 2550 ml Output Total 1725 ml Balance 825 ml Laboratory Tests Test 08/20/18 06:19 Range/Units Hemoglobin 12.2 11.5-16.0 G/DL Hematocrit 36 35-52 % RLE--dressing intact. NV intact distally s/p JACOBA PT/OT ALBERTO LOERA MD Aug 20, 2018 07:59
[2018-08-20 08:00] VITALS: BP 152/77
[2018-08-20] MEDS: SENNA W/DOCUSATE (SENOKOT S) TABLET PO SCH ×2 (08:12→20:02)
[2018-08-20] MEDS ORDERED: ENOXAPARIN 30 MG/0.3 ML (LOVENOX) SYR SC SCH (08:15)
[2018-08-20] MEDS: DILTIAZEM 180 MG (CARDIZEM CD) CAP PO SCH (09:15)
--- NOTE | 2018-08-20 09:15 | Physical Therapy Daily Note ---
PT Daily Note-Current Subjective Patient just received oral pain medication and agrees to PT. Pain Numeric Pain Scale: 8 Location: Right Location Body Site: Knee Pain Description: Acute Mental Status Patient Orientation: Normal For Age Attachments: IV Transfers Functional [place] Measure 0=Not Assessed/NA 4=Minimal Assistance 1=Total Assistance 5=Supervision or Setup 2=Maximal Assistance 6=Modified [place] 3=Moderate Assistance 7=Complete IndependenceIRFPAI Quality Coding Scale 6 Independent with activity with or without an assistive device 5 Patient requires set up or clean up by helper. Patient completes activity by themselves 4 Supervision or touching assist (CGA). Finger provide cues , steadying assist 3 The helper provides less than half the effort to complete the activity 2 The helper provides more than half the effort to complete the activity 1 Dependent. The helper does all the effort to complete an activity 7 Patient refused to complete or attempt activity 9 The patient did not perform the activity before the current illness or injury 88 Not attempted due to Medical conditions or safety concerns Transfers (B, C, W/C) (FIM): 5 Scootin Rollin Supine to/from Sit: 5 Sit to/from Stand: 5 Bed to/from Chair: 5 Weight Bearing Right Lower Extremity: Right Weight Bearing/Tolerated Left Lower Extremity: Left Full Weight Bearing Gait Training Gait (FIM): 1 Distance (FIM): 1=up to 49 ft Distance: 10' Gait Level of Assist: 5 Gait Assistive Device: FWW slow Exercises Supine Ex: Ankle pumps, Quad Set, Heel Slides Supine Reps: 10 Seated Therapy Exercises: Ankle pumps, Long arc quads Seated Reps: 15 Assessment Patient is up in recliner with needs met. PT to increase activity as patient tolerates. PT Short Term Goals Short Term Goals Time Frame: Aug 26, 2018 Transfers (B,C,W/C) (FIM): 4 Gait (FIM): 2 Distance (FIM): 1=up to 49 ft Gait Distance Comment: >50' Gait Level of Assist: 4 Gait Assistive Device: FWW PT Plan Treatment/Plan Treatment Plan: Continue Plan of Care Treatment Plan: Bed Mobility, Education, Functional Activity Khris, Functional Strength, Gait, Safety, Therapeutic Exercise, Transfers Treatment Duration: Aug 26, 2018 Frequency: 11 times per week Estimated Hrs Per Day: .25 hour per day (15-30') Patient and/or Family Agrees t: Yes Time/GCodes Time In: 815 Time Out: 838 Total Billed Treatment Time: 23 Total Billed Treatment 1 visit FA 8 min EX 15 min WHITLEY DENNY PT Aug 20, 2018 09:14
[2018-08-20] MEDS ORDERED: meTOprolol 5 MG/5 ML (LOPRESSOR) VIAL IV NR ×2 (10:00→16:15)
[2018-08-20] MEDS: meTOprolol 5 MG/5 ML (LOPRESSOR) VIAL IV PRN (10:45)
[2018-08-20 12:00] VITALS: BP 154/81
--- NOTE | 2018-08-20 13:23 | Occupational Therapy Eval ---
OT Evaluation-General/PLF Medical Diagnosis Admission Date Aug 19, 2018 at 08:25 Medical Diagnosis: R TKA Onset Date: Aug 19, 2018 Therapy Diagnosis Therapy Diagnosis: decr self care, decr funct mobility Height/Weight Height (Feet): 5 Height (Inches): 2.00 Weight (Pounds): 190 Weight (Ounces): 5.0 Precautions Precautions/Isolations: Standard Precautions Weight Bear Status Weight Bearing Restriction: Weight Bearing/Tolerated Location Restriction: R LE Referral Physician: Bob Dye Referral Reason: Evaluation/Treatment Medical History Pertinent Medical History: Atrial Fib, Arthritis, HTN, Hypothroidism, OA Additional Medical History Chronic UTI, chronic diarrhea. Chronic back pain. Back surgery Current History Admitted for elective R total knee Reviewed History: Yes Social History Home: Single Level Current Living Status: Spouse Entry Into Home: Level Entry ADL-Prior Level of Function ADL PLOF Comments Pt reported that she has been able to manage all of her basic self care needs with modified techniques or extra time. She has also been able to care for home , do laundry, clean, with extra time. 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 DME/Equipment: Shower, Tall Toilet OT Current Status Subjective Pt seen in room, up in recliner, agreeable to OT. Pain rated 8/10, in her back and leg, not described. Appearance Alert, cooperative Mental Status/Objective Attachments: IV, Telemetry Current Glasses/Contacts: Yes Upper Extremity ROM Grossly WFL bilat Upper Extremity Strength Grossly 4+/5 bilat ADL-Treatment ADL-Current Pt was able to transfer with SBA with PT this am and walked SBA for about 10". She said she has been able to feed herself but just doesn't have an appetite. Functional [place] Measure 0=Not Assessed/NA 4=Minimal Assistance 1=Total Assistance 5=Supervision or Setup 2=Maximal Assistance 6=Modified [place] 3=Moderate Assistance 7=Complete IndependenceIRFPAI Quality Coding Scale 6 Independent with activity with or without an assistive device 5 Patient requires set up or clean up by helper. Patient completes activity by themselves 4 Supervision or touching assist (CGA). [place] provide cues , steadying assist 3 The helper provides less than half the effort to complete the activity 2 The helper provides more than half the effort to complete the activity 1 Dependent. The helper does all the effort to complete an activity 7 Patient refused to complete or attempt activity 9 The patient did not perform the activity before the current illness or injury 88 Not attempted due to Medical conditions or safety concerns Education OT Patient Education: Purpose of tx/functional activities, Rehab process Teaching Recipient: Patient, Significant Other Teaching Methods: Discussion Response to Teaching: Verbalize Understanding OT Short Term Goals Short Term Goals Transfers (B,C,W/C) (FIM): 4 OT Usp Goals Usp Goals Time Frame: Aug 24, 2018 Eating (FIM): 6 Grooming(FIM): 6 Bathing(FIM): 5 Upper Body Dressing(FIM): 5 Lower Body Dressing(FIM): 5 Toileting(FIM): 6 Toilet/Commode Transfer(FIM): 6 Shower Transfer(FIM): 5 Additional Goals: 1-Demonstrate ADL Tasks, 2-Verbalize Understanding, 3- ImproveStrength/Khris 1=Demonstrate adherence to instructed precautions during ADL tasks. 2=Patient will verbalize/demonstrate understanding of assistive devices/ modifications for ADL. 3=Patient will improve strength/tolerance for activity to enable patient to perform ADL's. OT Education/Plan Problem List/Assessment Assessment: Decreased Activ Tolerance, Dependent Transfers, Impaired Self-Care Skills Pt would benefit from skilled OT to increase her independence in basic self care to allow her to safely return home Discharge Recommendations Plan/Recommendations: Continue POC Treatment Plan/Plan of Care Treatment,Training & Education: Yes Patient would benefit from OT for education, treatment and training to promote independence in ADL's, mobility, safety and/or upper extremity function for ADL' s. Plan of Care: ADL Retraining, Functional Mobility Treatment Duration: Aug 24, 2018 Frequency: 4 times per week Estimated Hrs Per Day: .5 hour per day Agreement: Yes Rehab Potential: Fair Time/GCodes Start Time: 10:45 Stop Time: 10:59 Total Time Billed (hr/min): 14 Billed Treatment Time visit, 14 minutes evaluation low intensity LENCHO MCCARTHY OT Aug 20, 2018 13:23
--- NOTE | 2018-08-20 14:32 | Physical Therapy Daily Note ---
PT Daily Note-Current Subjective Patient initially declined PT due to right knee pain. PT educated patient on importance of exercise to receive maximum benefit of elective surgery. Patient agrees to PT. Pain Numeric Pain Scale: 8 Location: Right Location Body Site: Knee Pain Description: Acute Mental Status Patient Orientation: Normal For Age Attachments: IV Transfers Functional [place] Measure 0=Not Assessed/NA 4=Minimal Assistance 1=Total Assistance 5=Supervision or Setup 2=Maximal Assistance 6=Modified [place] 3=Moderate Assistance 7=Complete IndependenceIRFPAI Quality Coding Scale 6 Independent with activity with or without an assistive device 5 Patient requires set up or clean up by helper. Patient completes activity by themselves 4 Supervision or touching assist (CGA). Clint provide cues , steadying assist 3 The helper provides less than half the effort to complete the activity 2 The helper provides more than half the effort to complete the activity 1 Dependent. The helper does all the effort to complete an activity 7 Patient refused to complete or attempt activity 9 The patient did not perform the activity before the current illness or injury 88 Not attempted due to Medical conditions or safety concerns Transfers (B, C, W/C) (FIM): 5 Scootin Rollin Supine to/from Sit: 5 Sit to/from Stand: 5 Weight Bearing Right Lower Extremity: Right Weight Bearing/Tolerated Left Lower Extremity: Left Full Weight Bearing Gait Training Gait (FIM): 5 Distance (FIM): 3=150 ft Distance: 200' Gait Level of Assist: 5 Gait Assistive Device: FWW slow, steady, antalgic Exercises Supine Ex: Ankle pumps, Quad Set, Heel Slides, Straight leg raise Supine Reps: 10 Seated Therapy Exercises: Long arc quads Seated Reps: 15 Assessment Patient progressing with treatment plan. CPM 0-60 degrees with polar pack in place. Increase activity. PT Short Term Goals Short Term Goals Time Frame: Aug 26, 2018 Transfers (B,C,W/C) (FIM): 4 Gait (FIM): 2 Distance (FIM): 1=up to 49 ft Gait Distance Comment: >50' Gait Level of Assist: 4 Gait Assistive Device: FWW PT Plan Treatment/Plan Treatment Plan: Continue Plan of Care Treatment Plan: Bed Mobility, Education, Functional Activity Khris, Functional Strength, Gait, Safety, Therapeutic Exercise, Transfers Treatment Duration: Aug 26, 2018 Frequency: 11 times per week Estimated Hrs Per Day: .25 hour per day (15-30') Patient and/or Family Agrees t: Yes Safety Risks/Education Patient Education: Gait Training, Safety Issues Teaching Recipient: Patient Teaching Methods: Discussion Response to Teaching: Verbalize Understanding Discharge Recommendations Therapy D/C Recommendations: Home w/ Family Support, Physical Therapy Home Care Time/GCodes Time In: 1305 Time Out: 1340 Total Billed Treatment Time: 35 Total Billed Treatment 1 visit EX 15 min GT 10 min WHITLEY DENNY PT Aug 20, 2018 14:32
--- NOTE | 2018-08-20 15:05 | Progress Note-Hospitalist ---
Subjective HPI/CC On Admission Date Seen by Provider: Aug 20, 2018 Time Seen by Provider: 10:30 Pt is a 77yoCF with a PMH of atrial fibrillation, HTN, hypothyroidism who was admitted following right TKA. Her only complaint at this time is her pain is a 10/10 despite her QUILL CLEANER. Her RN has already received ordered for oral pain medication. Advised her to push QUILL CLEANER when needed to help control pain. She is tearful through our conversation and history is somewhat limited due to that. She is unsure of her home medications at this time. I did call and speak with Dr Mora's nurse to confirm her cardiac meds. She is on Eliquis but not on any rate controlling medications at this time. I am consulted for medical management. Subjective/Events-last exam Pt reports doing well. Having pain but controlled with QUILL CLEANER. Discussed with RN about a-fib. Rate has been elevated with ambulation. Objective Exam Vital Signs Vital Signs Date Time Temp Pulse Resp B/P (MAP) Pulse Ox O2 Delivery O2 Flow Rate FiO2 08/20/18 13:37 97.4 08/20/18 13:00 111 08/20/18 12:00 18 154/81 (105) 95 Nasal Cannula 3.00 Capillary Refill : General Appearance: No Apparent Distress, WD/WN Respiratory: Lungs Clear, No Respiratory Distress Cardiovascular: No Murmur, Irregularly Irregular Gastrointestinal: Normal Bowel Sounds, Soft Neurologic/Psychiatric: Alert, Oriented x3, Normal Mood/Affect Results/Procedures Lab Laboratory Tests 08/20/18 06:19 Patient resulted labs reviewed. Assessment/Plan Assessment and Plan Assess & Plan/Chief Complaint s/p TKA Diagnosis/Problems Diagnosis/Problems (1) Osteoarthritis of right knee Assessment & Plan: s/p TKA POD #1 PT/OT Morphine QUILL CLEANER management per primary Qualifiers: Osteoarthritis type: primary Qualified Codes: M17.11 - Unilateral primary osteoarthritis, right knee (2) Atrial fibrillation Assessment & Plan: Rates up to 160s when up with PT today Cardizem added orally Continue prn lopressor Cardiology consulted, appreciate recs Will resume Eliquis Qualifiers: Atrial fibrillation type: paroxysmal Qualified Codes: I48.0 - Paroxysmal atrial fibrillation (3) Essential (primary) hypertension Assessment & Plan: BP improved today with Lopressor and cardizem trend (4) Hypothyroidism Assessment & Plan: Post surgical Continue synthroid Qualifiers: Hypothyroidism type: acquired Qualified Codes: E03.9 - Hypothyroidism, unspecified Clinical Quality Measures DVT/VTE Risk/Contraindication: Risk Factor Score Per Nursin RFS Level Per Nursing on Admit: 4+=Very High JOSE F GONZALEZ MD Aug 20, 2018 3:05 pm
[2018-08-20 16:05] VITALS: BP 139/75
--- NOTE | 2018-08-20 16:11 | Consultation-Cardiology ---
HPI-Cardiology Cardiology Consultation Date of Consultation 08/20/18 Date of Admission Time Seen by Provider: 16:06 HPI 77 years old lady with a history of chronic atrial fibrillation, hypertension, had osteoarthritis, underwent TKA, she was noted to be in atrial fibrillation with rapid ventricular response today. Given IV Lopressor, started on Cardizem , heart rate is slightly better but still borderline tachycardic. She denied any chest pain. No palpitation. No syncope. Home Medications & Allergies Allergies: Coded Allergies: Ykazelr-Byc-Ats Reductase Inhibitor (Verified Allergy, Intermediate, WEAKNESS, 11/04/16) aspirin (Unverified Allergy, Unknown, 11/04/16) methocarbamol (Unverified Allergy, Unknown, 11/04/16) Home Medication List Reviewed: Yes KPI-Pongjv-Dyvuft Hx Patient Social History Marital Status: Alcohol Use: Denies Use Recreational Drug Use: No Smoking Status: Never a Smoker Recent Foreign Travel: No Recent Infectious Disease Expo: No Recent Hopitalizations: No Physical Abuse Screen: No Sexual Abuse: No Immunizations Up To Date Date of Pneumonia Vaccine: April 07, 2016 Date of Influenza Vaccine: Aug 18, 2018 Past Medical History Past medical history as described below Family Medical History Significant Family History: Diabetes, Hypertension Family History: Cardiovascular disease G8 SISTER Diabetes mellitus 19 FATHER G8 BROTHER G8 SISTER Hypertension 19 FATHER G8 SISTER Myocardial infarction 19 FATHER G8 BROTHER Review of Systems Constitutional: no symptoms reported, see HPI EENTM: see HPI, no symptoms reported Respiratory: see HPI; No cough, No dyspnea on exertion, No hemoptysis, No orthopnea, No phlegm, No short of breath, No stridor, No wheezing, No other Cardiovascular: see HPI; No chest pain, No edema, No Hx of Intervention, No palpitations, No syncope, No vascular heart diseas, No other Gastrointestinal: no symptoms reported, see HPI Genitourinary: no symptoms reported, see HPI Musculoskeletal: see HPI, joint pain, muscle stiffness Skin: no symptoms reported, see HPI Psychiatric/Neurological: No Symptoms Reported, See HPI Reviewed Test Results Reviewed Test Results Lab Laboratory Tests Test 08/20/18 06:19 Range/Units Hemoglobin 12.2 11.5-16.0 G/DL Hematocrit 36 35-52 % Physical Exam Vital Signs Vital Signs - First Documented 08/19/18 08/19/18 09:00 13:13 Temp 97.3 Pulse 115 Resp 20 B/P (MAP) 139/89 (106) Pulse Ox 96 O2 Delivery Room Air O2 Flow Rate 3.00 Capillary Refill : Height, Weight, BMI Height: 5'2.00" Weight: 190lbs. 5.0oz. 86.513716ph; 34.8 BMI Method: General Appearance: No Apparent Distress, WD/WN Eyes: Bilateral Eye Normal Inspection, Bilateral Eye PERRL, Bilateral Eye EOMI HEENT: PERRL/EOMI, TMs Normal, Normal ENT Inspection, Pharynx Normal Neck: Full Range of Motion, Normal Inspection, Non Tender, Supple, Carotid Bruit Respiratory: Chest Non Tender, Lungs Clear, Normal Breath Sounds, No Accessory Muscle Use, No Respiratory Distress Cardiovascular: No Edema, No Gallop, No JVD, No Murmur, Normal Peripheral Pulses, Irregularly Irregular, Tachycardia Gastrointestinal: Normal Bowel Sounds, No Organomegaly, No Pulsatile Mass, Non Tender, Soft Back: Normal Inspection, No CVA Tenderness, No Vertebral Tenderness Extremity: Normal Capillary Refill, Normal Inspection, Normal Range of Motion, Non Tender, No Calf Tenderness, No Pedal Edema Neurologic/Psychiatric: Alert, Oriented x3, No Motor/Sensory Deficits, Normal Mood/Affect Skin: Normal Color, Warm/Dry Lymphatic: No Adenopathy A/P-Cardiology Assessment/Plan Atrial fibrillation with rapid ventricular response, history of chronic persistent atrial fibrillation with controlled rate. No history of stroke. Was maintained on Eliquis as an outpatient. Started on Cardizem orally and given IV Lopressor. I will give additional dose of IV Lopressor at this time and continue to monitor Osteoarthritis, status post right TKA, done on 2017. Started on physical therapy. Continue to monitor [id number] score of 5, yearly risk of stroke without oral anticoagulation is 6.7 percent. Patient is maintained on Eliquis. Was on Pradaxa in the past and it was discontinued due to the cost, restarted Eliquis and continue to monitor Coronary artery disease, history of stent to the LAD done in the past, had angiography done in January 2015 and showed patent stent and last stress test was done in May 2017 showing no ischemia. Currently asymptomatic Hypertension, mildly elevated, monitor her tolerance to the medications. Hyperlipidemia, continue to monitor lipids Faint bilateral carotid bruit, history of mild carotid stenosis. Continue to monitor Hypothyroidism, followed and managed by primary care physician History of back surgery, discectomy, thyroidectomy, hiatal hernia surgery, incisional hernia repair, multiple bladder surgeries. Degenerative joint disease, arthritic pain. I instructed her to discontinue meloxicam if possible. Clinical Quality Measures DVT/VTE Risk/Contraindication: Risk Factor Score Per Nursin RFS Level Per Nursing on Admit: 4+=Very High ONEIL DIAZ MD Aug 20, 2018 16:10
[2018-08-20] MEDS: meTOprolol 5 MG/5 ML (LOPRESSOR) VIAL IV SCH (19:05)
[2018-08-20 19:55] VITALS: BP 120/58
[2018-08-20] MEDS: APIXABAN 5 MG (ELIQUIS) TABLET PO SCH (20:02)
[2018-08-21] MEDS: meTOprolol 5 MG/5 ML (LOPRESSOR) VIAL IV SCH ×2 (00:02→06:09)
[2018-08-21 00:26] VITALS: BP 136/71
[2018-08-21] MEDS: NS IV 1000 ML 1,000 ML IV SCH (03:28)
[2018-08-21 04:52] VITALS: BP 122/71
[2018-08-21] MEDS: MULTIVIT W/MINERALS TAB (THERAGRAN M) PO SCH (06:09)
[2018-08-21 06:13] LABS: HEMOGLOBIN 11.2 G/DL (11.5-16.0); MEAN PLATELET VOLUME 10.3 FL (7.4-10.4); RED BLOOD COUNT 3.63 10^6/uL (4.35-5.85); RED CELL DISTRIBUTION WIDTH 12.5 % (10.0-14.5); WHITE BLOOD COUNT 9.3 10^3/uL (4.3-11.0)
[2018-08-21] MEDS ORDERED: LEVOTHYROXINE 125 MCG (LEVOTHROID) TABLET PO SCH (06:30)
[2018-08-21 06:34] LABS: ALANINE AMINOTRANSFERASE 9 U/L (0-55); ALBUMIN 3.4 GM/DL (3.2-4.5); ALKALINE PHOSPHATASE 57 U/L (40-136); BILIRUBIN,TOTAL 0.9 MG/DL (0.1-1.0); BUN/CREATININE RATIO 14; CALCIUM 9.1 MG/DL (8.5-10.1); CARBON DIOXIDE 23 MMOL/L (21-32); CHLORIDE 105 MMOL/L (98-107); GFR ESTIMATED > 60; GLUCOSE 108 MG/DL (70-105); SODIUM 136 MMOL/L (135-145); TOTAL PROTEIN 5.9 GM/DL (6.4-8.2)
--- NOTE | 2018-08-21 07:10 | Progress Note-Standard ---
Standard Progress Note Progress Notes/Assess & Plan Date Seen by a Provider: Aug 21, 2018 Time Seen by a Provider: 07:09 Progress/Assessment & Plan no complaints radiographs--HW well positioned without fracture RLE--2 plus DP pulse with brisk cap refill. Intact sensation throughout. Intact DF and PF of toes and ankle s/p RTKA mobilize as able Final Diagnosis No complaints Vital Signs Date Time Temp Pulse Resp B/P (MAP) Pulse Ox O2 Delivery O2 Flow Rate FiO2 08/21/18 06:45 92 Room Air 08/21/18 04:52 97.5 80 18 122/71 (88) 95 Nasal Cannula 3.00 08/21/18 02:49 91 Room Air 08/21/18 01:00 122 08/21/18 00:26 97.5 98 18 136/71 (92) 94 Room Air 08/20/18 22:36 93 Room Air 08/20/18 20:00 Room Air 08/20/18 19:55 99.6 107 16 120/58 (78) 93 Room Air 08/20/18 19:33 96 Room Air 08/20/18 19:00 107 08/20/18 16:05 99.8 117 14 139/75 (96) 92 08/20/18 15:40 99.8 08/20/18 15:13 95 Room Air 08/20/18 15:08 18 08/20/18 13:37 97.4 08/20/18 13:00 111 08/20/18 12:00 96.7 115 18 154/81 (105) 95 Nasal Cannula 3.00 08/20/18 08:00 97.4 126 18 152/77 (102) 99 Nasal Cannula 3.00 08/20/18 08:00 98 Nasal Cannula 2.00 08/20/18 08:00 98 Nasal Cannula 2.00 I & O 08/21/18 07:00 Intake Total 2200 ml Output Total 2025 ml Balance 175 ml Laboratory Tests Test 08/21/18 06:00 Range/Units White Blood Count 9.3 4.3-11.0 10^3/uL Red Blood Count 3.63 L 4.35-5.85 10^6/uL Hemoglobin 11.2 L 11.5-16.0 G/DL Hematocrit 34 L 35-52 % Mean Corpuscular Volume 92 80-99 FL Mean Corpuscular Hemoglobin 31 25-34 PG Mean Corpuscular Hemoglobin Concent 33 32-36 G/DL Red Cell Distribution Width 12.5 10.0-14.5 % Platelet Count 198 130-400 10^3/uL Mean Platelet Volume 10.3 7.4-10.4 FL Sodium Level 136 135-145 MMOL/L Potassium Level 4.0 3.6-5.0 MMOL/L Chloride Level 105 98-107 MMOL/L Carbon Dioxide Level 23 21-32 MMOL/L Anion Gap 8 5-14 MMOL/L Blood Urea Nitrogen 11 7-18 MG/DL Creatinine 0.80 0.60-1.30 MG/DL Estimat Glomerular Filtration Rate > 60 BUN/Creatinine Ratio 14 Glucose Level 108 H 70-105 MG/DL Calcium Level 9.1 8.5-10.1 MG/DL Corrected Calcium 9.6 8.5-10.1 MG/DL Total Bilirubin 0.9 0.1-1.0 MG/DL Aspartate Amino Transf (AST/SGOT) 17 5-34 U/L Alanine Aminotransferase (ALT/SGPT) 9 0-55 U/L Alkaline Phosphatase 57 40-136 U/L Total Protein 5.9 L 6.4-8.2 GM/DL Albumin 3.4 3.2-4.5 GM/DL Thyroid Stimulating Hormone (TSH) 0.53 0.35-4.94 UIU/ML RLE--incision clean and dry. No calf tenderness. Neg Elpidio's. 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
[2018-08-21] MEDS ORDERED: morphine INJ 4 MG/ML 1 ML (VIAL/SYRINGE) IVP PRN (07:15)
[2018-08-21 08:00] VITALS: BP 114/56
--- NOTE | 2018-08-21 08:35 | Cardiology Progress Note ---
Subjective Date Seen by Provider: Aug 21, 2018 Time Seen by Provider: 08:34 Subjective/Events-last exam Patient is laying down in bed, feeling better, still slightly tachycardic. Denied any chest pain. Review of Systems General: No Chills, No Night Sweats, No Fatigue, No Malaise, No Appetite, No Other HEENT: No Head Aches, No Visual Changes, No Eye Pain, No Ear Pain, No Dysphasia , No Sinus Congestion, No Post Nasal Drip, No Sore Throat, No Other Pulmonary: No Dyspnea, No Cough, No Pleuritic Chest Pain, No Other Cardiovascular: No: Chest Pain, Palpitations, Orthopnea, Paroxysmal Noc. Dyspnea, Edema, Lt Headedness, Other Objective-Cardiology Exam Last Set of Vital Signs Vital Signs 08/21/18 08/21/18 08/21/18 04:52 06:45 07:00 Temp 97.5 Pulse 105 Resp 18 B/P (MAP) 122/71 (88) Pulse Ox 92 O2 Delivery Room Air O2 Flow Rate 3.00 Capillary Refill : I&O Intake and Output 08/21/18 00:00 Intake Total 1200 ml Output Total 2175 ml Balance -975 ml Intake Oral 1150 ml IV Total 50 ml Output Urine Total 2175 ml General: Alert, Oriented X3, Cooperative HEENT: Atraumatic, PERRLA Neck: Supple, No JVD, No Thyromegaly Lungs: Clear to Auscultation, Normal Air Movement Heart: Normal S1, Normal S2, No Murmurs, Other (Atrial fibrillation) Abdomen: Normal Bowel Sounds, Soft, No Tenderness, No Hepatosplenomegaly, No Masses Extremities: No Clubbing, No Cyanosis, No Edema, Normal Pulses, No Tenderness/ Swelling Skin: No Rashes, No Breakdown, No Significant Lesion Neuro: Normal Speech, Other (Status post TKA) Psych/Mental Status: Mental Status NL, Mood NL Results Lab Laboratory Tests 08/21/18 06:00 Medications Administered Laboratory Tests Test 08/21/18 06:00 Range/Units White Blood Count 9.3 4.3-11.0 10^3/uL Red Blood Count 3.63 L 4.35-5.85 10^6/uL Hemoglobin 11.2 L 11.5-16.0 G/DL Hematocrit 34 L 35-52 % Mean Corpuscular Volume 92 80-99 FL Mean Corpuscular Hemoglobin 31 25-34 PG Mean Corpuscular Hemoglobin Concent 33 32-36 G/DL Red Cell Distribution Width 12.5 10.0-14.5 % Platelet Count 198 130-400 10^3/uL Mean Platelet Volume 10.3 7.4-10.4 FL Sodium Level 136 135-145 MMOL/L Potassium Level 4.0 3.6-5.0 MMOL/L Chloride Level 105 98-107 MMOL/L Carbon Dioxide Level 23 21-32 MMOL/L Anion Gap 8 5-14 MMOL/L Blood Urea Nitrogen 11 7-18 MG/DL Creatinine 0.80 0.60-1.30 MG/DL Estimat Glomerular Filtration Rate > 60 BUN/Creatinine Ratio 14 Glucose Level 108 H 70-105 MG/DL Calcium Level 9.1 8.5-10.1 MG/DL Corrected Calcium 9.6 8.5-10.1 MG/DL Total Bilirubin 0.9 0.1-1.0 MG/DL Aspartate Amino Transf (AST/SGOT) 17 5-34 U/L Alanine Aminotransferase (ALT/SGPT) 9 0-55 U/L Alkaline Phosphatase 57 40-136 U/L Total Protein 5.9 L 6.4-8.2 GM/DL Albumin 3.4 3.2-4.5 GM/DL Thyroid Stimulating Hormone (TSH) 0.53 0.35-4.94 UIU/ML A/P-Cardiology Admission Diagnosis Atrial fibrillation Tachycardia Osteoarthritis Hypertension Assessment/Plan Atrial fibrillation with rapid ventricular response, history of chronic persistent atrial fibrillation with controlled rate. No history of stroke. Started on Cardizem, I will change metoprolol to oral and continue on Eliquis. Continue to monitor heart rate and blood pressure response Osteoarthritis, status post right TKA, done on 2017. Started on physical therapy. Continue to monitor [id number] score of 5, yearly risk of stroke without oral anticoagulation is 6.7 percent. Patient is maintained on Eliquis. Was on Pradaxa in the past and it was discontinued due to the cost, restarted Eliquis and continue to monitor Coronary artery disease, history of stent to the LAD done in the past, had angiography done in January 2015 and showed patent stent and last stress test was done in May 2017 showing no ischemia. Currently asymptomatic Hypertension, mildly elevated, monitor her tolerance to the medications. Hyperlipidemia, continue to monitor lipids Faint bilateral carotid bruit, history of mild carotid stenosis. Continue to monitor Hypothyroidism, followed and managed by primary care physician History of back surgery, discectomy, thyroidectomy, hiatal hernia surgery, incisional hernia repair, multiple bladder surgeries. Degenerative joint disease, arthritic pain. I instructed her to discontinue meloxicam if possible. Clinical Quality Measures DVT/VTE Risk/Contraindication: Risk Factor Score Per Nursin RFS Level Per Nursing on Admit: 4+=Very High ONEIL DIAZ MD Aug 21, 2018 08:35
[2018-08-21] MEDS: SENNA W/DOCUSATE (SENOKOT S) TABLET PO SCH ×2 (08:59→22:01)
[2018-08-21] MEDS: DILTIAZEM 180 MG (CARDIZEM CD) CAP PO SCH (08:59)
[2018-08-21] MEDS: oxyCODONE/APAP 5/325MG (PERCOCET 5) TABLET PO PRN ×5 (08:59→21:09)
[2018-08-21] MEDS: APIXABAN 5 MG (ELIQUIS) TABLET PO SCH ×2 (08:59→21:09)
--- NOTE | 2018-08-21 09:02 | Progress Note-Hospitalist ---
Subjective HPI/CC On Admission Date Seen by Provider: Aug 21, 2018 Time Seen by Provider: 08:57 Pt is a 77yoCF with a PMH of atrial fibrillation, HTN, hypothyroidism who was admitted following right TKA. Her only complaint at this time is her pain is a 10/10 despite her WOOD FLOOR REFINISHER. Her RN has already received ordered for oral pain medication. Advised her to push WOOD FLOOR REFINISHER when needed to help control pain. She is tearful through our conversation and history is somewhat limited due to that. She is unsure of her home medications at this time. I did call and speak with Dr Mora's nurse to confirm her cardiac meds. She is on Eliquis but not on any rate controlling medications at this time. I am consulted for medical management. Subjective/Events-last exam Pt reports feeling better today. Pain is 8/10 but just worked with therapy. Trying to eating something before she gets a pain pill so it won't make her stomach upset. Objective Exam Vital Signs Vital Signs Date Time Temp Pulse Resp B/P (MAP) Pulse Ox O2 Delivery O2 Flow Rate FiO2 08/21/18 07:00 105 08/21/18 06:45 92 Room Air 08/21/18 04:52 97.5 18 122/71 (88) 3.00 Capillary Refill : General Appearance: No Apparent Distress, WD/WN Respiratory: Lungs Clear, No Respiratory Distress Cardiovascular: No Murmur, Irregularly Irregular, Tachycardia Gastrointestinal: Normal Bowel Sounds, Non Tender, Soft Neurologic/Psychiatric: Alert, Oriented x3 Results/Procedures Lab Laboratory Tests 08/21/18 06:00 Patient resulted labs reviewed. Assessment/Plan Assessment and Plan Assess & Plan/Chief Complaint s/p TKA Diagnosis/Problems Diagnosis/Problems (1) Osteoarthritis of right knee Assessment & Plan: s/p TKA POD #2 PT/OT management per primary Qualifiers: Osteoarthritis type: primary Qualified Codes: M17.11 - Unilateral primary osteoarthritis, right knee (2) Atrial fibrillation Assessment & Plan: Rates improved today with metoprolol and Cardizem Cardiology consulted, appreciate recs Continue Eliquis Monitor on telemetry Qualifiers: Atrial fibrillation type: paroxysmal Qualified Codes: I48.0 - Paroxysmal atrial fibrillation (3) Essential (primary) hypertension Assessment & Plan: BP improved today with Lopressor and cardizem trend (4) Hypothyroidism Assessment & Plan: Post surgical Continue synthroid Qualifiers: Hypothyroidism type: acquired Qualified Codes: E03.9 - Hypothyroidism, unspecified Clinical Quality Measures DVT/VTE Risk/Contraindication: Risk Factor Score Per Nursin RFS Level Per Nursing on Admit: 4+=Very High JOSE F GONZALEZ MD Aug 21, 2018 09:02
[2018-08-21] MEDS: meTOprolol TARTRATE 25 MG (LOPRESSOR) TABLET PO SCH ×2 (09:04→21:09)
--- NOTE | 2018-08-21 09:42 | Physical Therapy Daily Note ---
PT Daily Note-Current Subjective Patient reports she is better to day with improved pain control. Pain Numeric Pain Scale: 5-Moderate Pain Location: Right Location Body Site: Knee Pain Description: Acute Mental Status Patient Orientation: Normal For Age Transfers Functional [place] Measure 0=Not Assessed/NA 4=Minimal Assistance 1=Total Assistance 5=Supervision or Setup 2=Maximal Assistance 6=Modified [place] 3=Moderate Assistance 7=Complete IndependenceIRFPAI Quality Coding Scale 6 Independent with activity with or without an assistive device 5 Patient requires set up or clean up by helper. Patient completes activity by themselves 4 Supervision or touching assist (CGA). [place] provide cues , steadying assist 3 The helper provides less than half the effort to complete the activity 2 The helper provides more than half the effort to complete the activity 1 Dependent. The helper does all the effort to complete an activity 7 Patient refused to complete or attempt activity 9 The patient did not perform the activity before the current illness or injury 88 Not attempted due to Medical conditions or safety concerns Transfers (B, C, W/C) (FIM): 6 Scootin Rollin Supine to/from Sit: 6 Sit to/from Stand: 6 Bed to/from Chair: 6 Weight Bearing Right Lower Extremity: Right Weight Bearing/Tolerated Left Lower Extremity: Left Full Weight Bearing Gait Training Gait (FIM): 6 Distance (FIM): 3=150 ft Distance: 275' Gait Level of Assist: 6 Gait Assistive Device: FWW reciprocal pattern, antalgic Exercises Supine Ex: Ankle pumps, Quad Set, Heel Slides, Straight leg raise, Hip abd/add Supine Reps: 15 Seated Therapy Exercises: Long arc quads Seated Reps: 15 Assessment Patient is up in recliner with needs met. PT instructed patient and staff to be up ad cyn in room and hallway. Progressing. PT Short Term Goals Short Term Goals Time Frame: Aug 26, 2018 Transfers (B,C,W/C) (FIM): 4 Gait (FIM): 2 Distance (FIM): 1=up to 49 ft Gait Distance Comment: >50' Gait Level of Assist: 4 Gait Assistive Device: FWW PT Plan Treatment/Plan Treatment Plan: Continue Plan of Care Treatment Plan: Bed Mobility, Education, Functional Activity Khris, Functional Strength, Gait, Safety, Therapeutic Exercise, Transfers Treatment Duration: Aug 26, 2018 Frequency: 11 times per week Estimated Hrs Per Day: .25 hour per day (15-30') Patient and/or Family Agrees t: Yes Time/GCodes Time In: 810 Time Out: 842 Total Billed Treatment Time: 32 Total Billed Treatment 1 visit EX 16 min GT 16 min WHITLEY DENNY PT Aug 21, 2018 09:42
[2018-08-21 12:00] VITALS: BP 152/77
--- NOTE | 2018-08-21 14:16 | Occupational Ther Daily Note ---
OT Current Status-Daily Note Subjective Pt seen in room, up in recliner, agreeable to OT. No pain mentioned. Appearance Alert, cooperative Mental Status/Objective Functional [place] Measure 0=Not Assessed/NA 4=Minimal Assistance 1=Total Assistance 5=Supervision or Setup 2=Maximal Assistance 6=Modified [place] 3=Moderate Assistance 7=Complete [place] ADL-Treatment Pt reported that she had a long walk with PT for 275' this morning and had a shower this afternoon. She reported that she had a little trouble getting on/ off tall toilet so BSC placed over toilet to help arm assist with transfers. She said that she has access to one for home use. Also briefly reviewed modified technique for dressing lower body and putting on JOSE hose. All questions answered and goals met to patient satisfaction. DC OT Education OT Patient Education: Modified ADL techniques, Purpose of tx/functional activities, Transfer techniques, Use of adapted equipment Teaching Recipient: Patient, Significant Other Teaching Methods: Discussion Response to Teaching: Verbalize Understanding OT Short Term Goals Short Term Goals Transfers (B,C,W/C) (FIM): 4 1=Demonstrate adherence to instructed precautions during ADL tasks. 2=Patient will verbalize/demonstrate understanding of assistive devices/ modifications for ADL. 3=Patient will improve strength/tolerance for activity to enable patient to perform ADL's. OT [facility] Goals [facility] Goals Time Frame: Aug 24, 2018 Eating (FIM): 6 Grooming(FIM): 6 Bathing(FIM): 5 Upper Body Dressing(FIM): 5 Lower Body Dressing(FIM): 5 Toileting(FIM): 6 Toilet/Commode Transfer(FIM): 6 Shower Transfer(FIM): 5 Additional Goals: 1-Demonstrate ADL Tasks, 2-Verbalize Understanding, 3- ImproveStrength/Khris 1=Demonstrate adherence to instructed precautions during ADL tasks. 2=Patient will verbalize/demonstrate understanding of assistive devices/ modifications for ADL. 3=Patient will improve strength/tolerance for activity to enable patient to perform ADL's. OT Education/Plan Problem List/Assessment Pt would benefit from skilled OT to increase her independence in basic self care to allow her to safely return home Discharge Recommendations Plan/Recommendations: Discharge/Goals Met Treatment Plan/Plan of Care Patient would benefit from OT for education, treatment and training to promote independence in ADL's, mobility, safety and/or upper extremity function for ADL' s. Plan of Care: ADL Retraining, Functional Mobility Treatment Duration: Aug 24, 2018 Frequency: 4 times per week Estimated Hrs Per Day: .5 hour per day Agreement: Yes Rehab Potential: Fair Time/GCodes Start Time: 13:30 Stop Time: 13:45 Total Time Billed (hr/min): 15 Billed Treatment Time visit, 15 minutes ADL LENCHO MCCARTHY OT Aug 21, 2018 14:16
--- NOTE | 2018-08-21 14:17 | Physical Therapy Daily Note ---
PT Daily Note-Current Subjective Patient agrees to PT. Pain Numeric Pain Scale: 5-Moderate Pain Location: Right Location Body Site: Knee Pain Description: Acute Mental Status Patient Orientation: Normal For Age Transfers Functional [place] Measure 0=Not Assessed/NA 4=Minimal Assistance 1=Total Assistance 5=Supervision or Setup 2=Maximal Assistance 6=Modified [place] 3=Moderate Assistance 7=Complete IndependenceIRFPAI Quality Coding Scale 6 Independent with activity with or without an assistive device 5 Patient requires set up or clean up by helper. Patient completes activity by themselves 4 Supervision or touching assist (CGA). [place] provide cues , steadying assist 3 The helper provides less than half the effort to complete the activity 2 The helper provides more than half the effort to complete the activity 1 Dependent. The helper does all the effort to complete an activity 7 Patient refused to complete or attempt activity 9 The patient did not perform the activity before the current illness or injury 88 Not attempted due to Medical conditions or safety concerns Transfers (B, C, W/C) (FIM): 6 Scootin Rollin Supine to/from Sit: 6 Sit to/from Stand: 6 Weight Bearing Right Lower Extremity: Right Weight Bearing/Tolerated Left Lower Extremity: Left Full Weight Bearing Gait Training Gait (FIM): 6 Distance (FIM): 3=150 ft Distance: 250' Gait Level of Assist: 6 Gait Assistive Device: FWW steady, functional Exercises Seated Therapy Exercises: Ankle pumps, Long arc quads Seated Reps: 25 Assessment Patient tolerated treatment and remains up in recliner. PT Short Term Goals Short Term Goals Time Frame: Aug 26, 2018 Transfers (B,C,W/C) (FIM): 4 Gait (FIM): 2 Distance (FIM): 1=up to 49 ft Gait Distance Comment: >50' Gait Level of Assist: 4 Gait Assistive Device: FWW PT Plan Treatment/Plan Treatment Plan: Continue Plan of Care Treatment Plan: Bed Mobility, Education, Functional Activity Khris, Functional Strength, Gait, Safety, Therapeutic Exercise, Transfers Treatment Duration: Aug 26, 2018 Frequency: 11 times per week Estimated Hrs Per Day: .25 hour per day (15-30') Patient and/or Family Agrees t: Yes Time/GCodes Time In: 1240 Time Out: 1256 Total Billed Treatment Time: 16 Total Billed Treatment 1 visit FA 16 min WHITLEY DENNY PT Aug 21, 2018 14:17
[2018-08-21 16:20] VITALS: BP 126/61
[2018-08-21 20:27] VITALS: BP 124/65
[2018-08-22] VITALS: BP 98/55
[2018-08-22] MEDS: oxyCODONE/APAP 5/325MG (PERCOCET 5) TABLET PO PRN ×3 (00:44→08:49)
[2018-08-22 04:00] VITALS: BP 119/70
[2018-08-22] MEDS: LEVOTHYROXINE 100 MCG (LEVOTHROID) TAB PO SCH (06:04)
[2018-08-22] MEDS: MULTIVIT W/MINERALS TAB (THERAGRAN M) PO SCH (06:04)
[2018-08-22 08:00] VITALS: BP 117/78
[2018-08-22] MEDS: APIXABAN 5 MG (ELIQUIS) TABLET PO SCH (08:19)
[2018-08-22] MEDS: SENNA W/DOCUSATE (SENOKOT S) TABLET PO SCH (08:20)
[2018-08-22] MEDS: DILTIAZEM 180 MG (CARDIZEM CD) CAP PO SCH (08:21)
[2018-08-22] MEDS: meTOprolol TARTRATE 25 MG (LOPRESSOR) TABLET PO SCH (08:21)
--- NOTE | 2018-08-22 09:02 | Progress Note-Standard ---
Standard Progress Note Progress Notes/Assess & Plan Date Seen by a Provider: Aug 22, 2018 Time Seen by a Provider: 09:01 Progress/Assessment & Plan no complaints radiographs--HW well positioned without fracture RLE--2 plus DP pulse with brisk cap refill. Intact sensation throughout. Intact DF and PF of toes and ankle s/p RTKA mobilize as able Final Diagnosis no complaints RLE--no calf tenderness. Neg Susan's incision bening Vital Signs Date Time Temp Pulse Resp B/P (MAP) Pulse Ox O2 Delivery O2 Flow Rate FiO2 08/22/18 08:00 Room Air 08/22/18 04:00 99.8 84 20 119/70 (86) 96 Room Air 08/22/18 01:00 89 08/22/18 00:00 99.0 83 20 98/55 (69) 91 Room Air 08/21/18 20:27 99.2 120 22 124/65 (84) 94 Room Air 08/21/18 20:00 Room Air 08/21/18 19:54 Nasal Cannula 3.00 08/21/18 19:00 119 08/21/18 16:20 99.2 115 20 126/61 (82) 96 Room Air 08/21/18 13:00 85 08/21/18 12:00 97.4 126 18 152/77 (102) 99 Nasal Cannula 3.00 I & O 08/22/18 07:00 Intake Total 1860 ml Output Total 650 ml Balance 1210 ml Laboratory Tests Test 08/22/18 06:50 Range/Units Hemoglobin 11.0 L 11.5-16.0 G/DL Hematocrit 32 L 35-52 % S/P RTKA doing well DC home ALBERTO LOERA MD Aug 22, 2018 09:02
--- NOTE | 2018-08-22 09:20 | Physical Therapy Daily Note ---
PT Daily Note-Current Subjective Pt up ad cyn in room to BR. No pain rating given but reports (R) knee "feels stiff". No voiced concerns, questions answered. Feels prepared to discharge. Mental Status Patient Orientation: Person, Place, Time, Situation Transfers Functional [place] Measure 0=Not Assessed/NA 4=Minimal Assistance 1=Total Assistance 5=Supervision or Setup 2=Maximal Assistance 6=Modified [place] 3=Moderate Assistance 7=Complete IndependenceIRFPAI Quality Coding Scale 6 Independent with activity with or without an assistive device 5 Patient requires set up or clean up by helper. Patient completes activity by themselves 4 Supervision or touching assist (CGA). [place] provide cues , steadying assist 3 The helper provides less than half the effort to complete the activity 2 The helper provides more than half the effort to complete the activity 1 Dependent. The helper does all the effort to complete an activity 7 Patient refused to complete or attempt activity 9 The patient did not perform the activity before the current illness or injury 88 Not attempted due to Medical conditions or safety concerns Weight Bearing Right Lower Extremity: Right Weight Bearing/Tolerated Left Lower Extremity: Left Full Weight Bearing Gait Training Gait (FIM): 6 Distance (FIM): 3=150 ft Distance: 250 Gait Level of Assist: 6 Gait Persons Needed: 0 Gait Assistive Device: FWW VCS for heel-toe gait with TKE. Safe gait with FWW. Exercises Seated Therapy Exercises: Ankle pumps, Long arc quads, Hamstring Curls Seated Reps: 15 Treatments Gait training with FWW. Reviewed HEP. Up in chair post treatment with needs met. Assessment Current Status: Excellent Progress Pt tolerated well. Progressing well with functional mobility s/p (R) TKR. PT Short Term Goals Short Term Goals Time Frame: Aug 26, 2018 Transfers (B,C,W/C) (FIM): 4 Gait (FIM): 2 Distance (FIM): 1=up to 49 ft Gait Distance Comment: >50' Gait Level of Assist: 4 Gait Assistive Device: FWW PT Plan Problem List Problem List: Activity Tolerance, Functional Strength, Balance, Gait, Transfer , Bed Mobility, ROM Treatment/Plan Treatment Plan: Continue Plan of Care Treatment Plan: Bed Mobility, Education, Functional Activity Khris, Functional Strength, Gait, Safety, Therapeutic Exercise, Transfers Treatment Duration: Aug 26, 2018 Frequency: 11 times per week Estimated Hrs Per Day: .25 hour per day (15-30') Patient and/or Family Agrees t: Yes Safety Risks/Education Patient Education: Gait Training Teaching Recipient: Patient Teaching Methods: Discussion Response to Teaching: Verbalize Understanding Discharge Recommendations Therapy D/C Recommendations: Physical Therapy Home Care Barriers to Progress None Time/GCodes Time In: 55 Time Out: 09 Total Billed Treatment Time: 14 Total Billed Treatment 1, GT x 10' (Ex x 4') G Codes Necessary: No MAHAMED PENALOZA DPT Aug 22, 2018 09:20
[2018-08-22 10:34] VITALS: BP 117/78
[2018-08-22] MEDS ORDERED: DILT180C90 PO (10:39)
[2018-08-22] MEDS ORDERED: METO-333 PO (10:39)
--- NOTE | 2018-08-22 13:34 | DISCHARGE SUMMARY ---
DATE OF SERVICE: DIAGNOSES: 1. Right knee primary osteoarthritis. 2. Atrial fibrillation. 3. Hypertension. 4. Hypothyroidism. PROCEDURE: Right total knee arthroplasty. SUMMARY: The patient is a 77-year-old female who underwent a right total knee arthroplasty on the date of admission. Postoperatively, she did very well. At the time of discharge, her wound was clean and dry. She had no calf tenderness. Negative Homans sign. Her hematocrit was 32. She was tolerating diet well and tolerating pain with oral pain medication. CONDITION ON DISCHARGE: Good. DISCHARGE DIET: Regular. FOLLOWUP: In three weeks. ACTIVITY: Weightbear as tolerated on right lower extremity. DISCHARGE MEDICATIONS: Home medications, aspirin and Percocet. Job ID: [id number] DocumentID: [id number] Dictated Date: 08/22/2018 08:57:52 Batch Heat Treat Operator Date: 08/22/2018 13:33:38 Dictated By: ALBERTO LOERA MD
== END 2018-08-22 10:34 | disposition home health service (06) | DRG 470 ==
LOC: 4TH 08:25 → SURG 08:26 → 4TH 13:17
PROVIDERS: ADMIT Orthopaedic Surgery; ATTEND Orthopaedic Surgery
PROC: 0SRC0J9 Replacement of Right Knee Joint with Synthetic Substitute, Cemented, Open Approach (ICD-10-PCS; principal; 2018-08-19 10:17)
DX: M17.11 Unilateral primary osteoarthritis, right knee (principal); I10 Essential (primary) hypertension; I48.1 Persistent atrial fibrillation; M54.9 Dorsalgia, unspecified; E89.0 Postprocedural hypothyroidism; E78.5 Hyperlipidemia, unspecified; J30.2 Other seasonal allergic rhinitis; Z95.5 Presence of coronary angioplasty implant and graft; Z79.01 Long term (current) use of anticoagulants; Z87.440 Personal history of urinary (tract) infections
CPT/HCPCS: 36415; 73560; 80053; 84443; 85014; 85018; 85027; 86850; 86900; 86901; 94664; 94760

== ENCOUNTER → 2018-11-18 | Outpatient (CLI) | payer MEDICARE ==
[~2018-11-18] MED LIST changes: +DILT180C90 PO; +METO-333 PO; +OXYC1TAB87 PO
--- NOTE | 2018-11-18 11:04 | Diagnostic Imaging Report ---
PROCEDURE: MRI lumbar spine. TECHNIQUE: Multiplanar, multisequence MRI of the lumbar spine was performed without contrast. INDICATION: Chronic low back pain. Right knee pain. COMPARISON: None. FINDINGS: For the purposes of this exam, last well-formed disc space is denoted the L4-L5 level. There is partial ossification of L5-S1. Static alignment is maintained. There is no significant anteroretrolisthesis. There is no evidence of jumped facets. Vertebral body heights are maintained. There is no evidence of acute fracture. Marrow signal is unremarkable. There is mild multilevel intervertebral disc height loss. Multilevel anterior and posterior disc bulges are also present. Visualized portions of distal cord are unremarkable. Conus terminates at approximately the T12-L1 level. No abnormal intrathecal filling defects are seen. Pre-and paravertebral soft tissue structures are unremarkable. Axial images demonstrate the following: T12-L1: There is broad-based posterior disc bulge with ossification posteriorly. As a result, there is mild narrowing of the spinal canal. Neural foramina are unremarkable. L1-L2: There is mild broad-based posterior disc bulge. As a result, there is mild narrowing of spinal canal. Neural foramina are unremarkable. L2-L3: There is broad-based posterior disc bulge, eccentric to the left. There is also small superimposed central posterior disc protrusion. As a result, there is mild to moderate narrowing of the spinal canal and moderate narrowing of the left neural foramen. There is also mild narrowing on the right. L3-L4: There is broad-based posterior disc bulge with bilateral ligamentum flavum laxity and facet arthropathy. As a result, there is moderate stenosis of the spinal canal and moderate to severe stenosis of the right neural foramen. There is mild narrowing on the left. L4-L5: There is broad-based posterior disc bulge and bilateral ligamentum flavum laxity and facet arthropathy. As a result, there is mild to moderate narrowing of the spinal canal and moderate narrowing of the left neural foramen. There is also mild narrowing on the right. L5-S1: There is no large disc bulge or focal protrusion. There is no significant spinal canal or neural foraminal stenosis. IMPRESSION: 1. Multilevel degenerative changes, greatest at the L3-L4 level as described above. 2. No acute fracture or dislocation. Dictated by: Dictated on workstation # [id number]
== END ==
LOC: RAD 08:21
PROVIDERS: ATTEND Orthopaedic Surgery
DX: M47.26 Other spondylosis with radiculopathy, lumbar region (principal); M51.16 Intervertebral disc disorders with radiculopathy, lumbar region; M46.86 Other specified inflammatory spondylopathies, lumbar region; M48.061 Spinal stenosis, lumbar region without neurogenic claudication
CPT/HCPCS: 72148

== ENCOUNTER 2019-05-05 10:04 | Day surgery (SDC) | payer MEDICARE ==
[~2019-05-05] VITALS: Ht 157.5 cm; Wt 78.0 kg
[2019-05-05] VITALS (10 sets, daily range): BP systolic 122–152; BP diastolic 62–92
--- OUTSIDE RECORDS SUMMARY | 2019-05-05 10:10 | XMS REPORT | Continuity of Care Document ---
Author Organization Unknown Address Unknown Allergies Active Description Code Type Severity Reaction Onset Reported/Identified Relationship to Patient Clinical Status Yes NKANo Known Allergies NKA Miscellaneous Allergy Mild N/A 09/28/2008 Yes Cnldhvl-Wja-Fgh Reductase Inhibitor [id number] Drug Allergy Moderate WEAKNESS 11/04/2016 Yes aspirin [id number] Drug Allergy Unknown N/A 11/04/2016 Yes methocarbamol [id number] Drug Allergy Unknown N/A 11/04/2016 Medications There is no data. Problems Date Dx Coded Attending Type Code Diagnosis Diagnosed By 11/07/2014 KATHARINA NEW MD Ot 793.80 11/08/2014 KATHARINA NEW MD Ot 793.80 08/09/2015 Ot V76.12 11/04/2016 Ot 611.72 LUMP OR MASS IN BREAST 11/04/2016 Ot V76.12 OTH SCREEN MAMMO- MALIGN NEOPLASM OF [place] 11/04/2016 Ot 611.72 LUMP OR MASS IN BREAST 11/04/2016 Ot 793.80 UNSPEC ABNORMAL MAMMOGRAM 11/04/2016 Ot 793.89 OTH (ABN) FINDINGS ON RADIOLOGICAL EXAMI 11/04/2016 Ot V76.12 OTH SCREEN MAMMO- MALIGN NEOPLASM OF [place] 11/04/2016 Ot 787.60 FULL INCONTINENCE OF FECES 11/04/2016 Ot V72.84 EXAM PRE-OPERATIVE NOS 11/04/2016 Ot 793.89 OTH (ABN) FINDINGS ON RADIOLOGICAL EXAMI 11/04/2016 Ot V67.9 FOLLOW-UP EXAM NOS 11/04/2016 KATHARINA NEW MD Ot V76.12 OTH SCREEN MAMMO-MALIGN NEOPLASM OF [place] 11/04/2016 KATHARINA NEW MD Ot V76.12 OTH SCREEN MAMMO-MALIGN NEOPLASM OF [place] 11/04/2016 KATHARINA NEW MD Ot 793.80 UNSPEC ABNORMAL MAMMOGRAM 11/04/2016 VIRGEN SINGLETON, KATHARINA Garsia Ot 793.80 UNSPEC ABNORMAL MAMMOGRAM 11/04/2016 Ot V76.12 OTH SCREEN MAMMO- MALIGN NEOPLASM OF [place] 11/04/2016 WANG SINGLETON, YUNG Freeman Ot N81.10 CYSTOCELE, UNSPECIFIED 11/04/2016 WANG SINGLETON, YUNG Freeman Ot R32 UNSPECIFIED URINARY INCONTINENCE 11/04/2016 WANG SINGLETON, YUNG Freeman Ot Z01.810 ENCOUNTER FOR PREPROCEDURAL CARDIOVASCUL 11/04/2016 [...] ENCOUNTER FOR SCREENING FOR OTHER BACTER 11/05/2016 YUGN PIÑA MD Ot N81.10 CYSTOCELE, UNSPECIFIED 11/05/2016 [...] MD Ot I25.10 ATHSCL HEART DISEASE OF [place] CORONARY 11/13/2016 YUNG PIÑA MD Ot I48.91 UNSPECIFIED ATRIAL FIBRILLATION 11/13/2016 YUNG PIÑA MD Ot N81.10 CYSTOCELE, UNSPECIFIED 11/13/2016 YUNG PIÑA MD Ot R32 UNSPECIFIED URINARY INCONTINENCE 11/13/2016 YUNG PIÑA MD Ot Z79.899 OTHER SENIOR LIVING (CURRENT) DRUG THERAPY 11/14/2016 YUNG PIÑA MD Ot I10 ESSENTIAL (PRIMARY) HYPERTENSION 11/14/2016 YUNG PIÑA MD Ot I25.10 ATHSCL HEART DISEASE OF [place] CORONARY 11/14/2016 YUNG PIÑA MD Ot I48.91 UNSPECIFIED ATRIAL FIBRILLATION 11/14/2016 YUNG PIÑA MD Ot N81.10 CYSTOCELE, UNSPECIFIED 11/14/2016 YUNG PIÑA MD Ot R32 UNSPECIFIED URINARY INCONTINENCE 11/14/2016 YUNG PIÑA MD, Ot Z79.899 OTHER SENIOR LIVING (CURRENT) DRUG THERAPY 04/09/2017 YNUG PIÑA MD Ot N20.0 CALCULUS OF KIDNEY 04/09/2017 YUNG PIÑA MD Ot R31.9 HEMATURIA, UNSPECIFIED 04/29/2017 YUNG PIÑA MD Ot N20.0 CALCULUS OF KIDNEY 04/29/2017 YUNG PIÑA MD Ot R31.9 HEMATURIA, UNSPECIFIED 05/06/2017 YUNG PIÑA MD Ot N20.0 CALCULUS OF KIDNEY 05/06/2017 YUNG PIÑA MD Ot R31.9 HEMATURIA, UNSPECIFIED 08/05/2018 KATHARINA NEW MD Ot V76.12 OTH SCREEN MAMMO-MALIGN NEOPLASM OF [place] 08/05/2018 KATHARINA NEW MD Ot V76.12 OTH SCREEN MAMMO-MALIGN NEOPLASM OF [place] 08/05/2018 KATHARINA NEW MD Ot 793.80 UNSPEC ABNORMAL MAMMOGRAM 08/05/2018 KATHARINA NEW MD Ot 793.80 UNSPEC ABNORMAL MAMMOGRAM 08/05/2018 Ot V76.12 OTH SCREEN MAMMO- MALIGN NEOPLASM OF [place] 08/05/2018 YUNG PIÑA MD Ot N20.0 CALCULUS OF KIDNEY 08/05/2018 YUNG PIÑA MD Ot R31.9 HEMATURIA, UNSPECIFIED 08/05/2018 ALBERTO LOERA MD Ot M17.11 UNILATERAL PRIMARY OSTEOARTHRITIS, RIGHT 08/05/2018 ALBERTO LOERA MD Ot R53.83 OTHER FATIGUE 08/05/2018 ALBERTO LOERA MD Ot R82.99 OTHER ABNORMAL FINDINGS IN URINE 08/05/2018 ALBERTO LOERA MD Ot Z01.811 ENCOUNTER FOR PREPROCEDURAL RESPIRATORY 08/05/2018 ALBERTO LOERA MD Ot Z01.812 ENCOUNTER FOR PREPROCEDURAL LABORATORY E 08/05/2018 ALBERTO LOERA MD Ot Z11.2 ENCOUNTER FOR SCREENING FOR OTHER BACTER 08/06/2018 ALBERTO LOERA MD Ot M17.11 UNILATERAL PRIMARY OSTEOARTHRITIS, RIGHT 08/06/2018 ALBERTO LOERA MD Ot R53.83 OTHER FATIGUE 08/06/2018 ALBERTO LOERA MD Ot R82.99 OTHER ABNORMAL FINDINGS IN URINE 08/06/2018 ALBERTO LOERA MD Ot Z01.811 ENCOUNTER FOR PREPROCEDURAL RESPIRATORY 08/06/2018 ALBERTO LOERA MD Ot Z01.812 ENCOUNTER FOR PREPROCEDURAL LABORATORY E 08/06/2018 ALBERTO LOERA MD Ot Z11.2 ENCOUNTER FOR SCREENING FOR OTHER BACTER 08/12/2018 ALBERTO LOERA MD Ot E03.9 HYPOTHYROIDISM, UNSPECIFIED 08/12/2018 ALBERTO LOERA MD Ot E78.5 HYPERLIPIDEMIA, UNSPECIFIED 08/12/2018 ALBERTO LOERA MD Ot I12.9 HYPERTENSIVE CHRONIC KIDNEY DISEASE W ST 08/12/2018 ALBERTO LOERA MD Ot I25.10 ATHSCL HEART DISEASE OF [place] CORONARY 08/12/2018 ALBERTO LOERA MD Ot I34.0 NONRHEUMATIC MITRAL (VALVE) INSUFFICIENC 08/12/2018 ALBERTO LOERA MD Ot I48.91 UNSPECIFIED ATRIAL FIBRILLATION 08/12/2018 ALBERTO LOERA MD Ot M17.11 UNILATERAL PRIMARY OSTEOARTHRITIS, RIGHT 08/12/2018 ALBERTO LOERA MD Ot N18.3 CHRONIC KIDNEY DISEASE, STAGE 3 (MODERAT 08/12/2018 ALBERTO OLERA MD Ot Z53.09 PROC/TRTMT NOT CARRIED OUT BECAUSE OF CO 08/12/2018 ALBERTO LOERA MD Ot Z79.01 SENIOR LIVING (CURRENT) USE OF ANTICOAGULANT 08/20/2018 ALBERTO LOERA MD Ot E03.9 HYPOTHYROIDISM, UNSPECIFIED 08/20/2018 ALBERTO LOERA MD Ot E78.5 HYPERLIPIDEMIA, UNSPECIFIED 08/20/2018 ALBERTO LOERA MD Ot I12.9 HYPERTENSIVE CHRONIC KIDNEY DISEASE W ST 08/20/2018 ALBERTO LOERA MD Ot I25.10 ATHSCL HEART DISEASE OF [place] CORONARY 08/20/2018 ALBERTO LOERA MD Ot I34.0 NONRHEUMATIC MITRAL (VALVE) INSUFFICIENC 08/20/2018 ALBERTO LOERA MD Ot I48.91 UNSPECIFIED ATRIAL FIBRILLATION 08/20/2018 ALBERTO LOERA MD Ot M17.11 UNILATERAL PRIMARY OSTEOARTHRITIS, RIGHT 08/20/2018 ALBERTO LOERA MD Ot N18.3 CHRONIC KIDNEY DISEASE, STAGE 3 (MODERAT 08/20/2018 ALBERTO LOERA MD Ot Z53.09 PROC/TRTMT NOT CARRIED OUT BECAUSE OF CO 08/20/2018 ALBERTO LOERA MD Ot Z79.01 SENIOR LIVING (CURRENT) USE OF ANTICOAGULANT 08/21/2018 ALBERTO LOERA MD Ot E03.9 HYPOTHYROIDISM, UNSPECIFIED 08/21/2018 ALBERTO LOERA MD, Ot E78.5 HYPERLIPIDEMIA, UNSPECIFIED 08/21/2018 ALBERTO LOERA MD, Ot I12.9 HYPERTENSIVE CHRONIC KIDNEY DISEASE W ST 08/21/2018 ALBERTO LOERA MD, Ot I25.10 ATHSCL HEART DISEASE OF [place] CORONARY 08/21/2018 ALBERTO LOERA MD Ot I34.0 NONRHEUMATIC MITRAL (VALVE) INSUFFICIENC 08/21/2018 ALBERTO LOERA MD, Ot I48.91 UNSPECIFIED ATRIAL FIBRILLATION 08/21/2018 ALBERTO LOERA MD, Ot M17.11 UNILATERAL PRIMARY OSTEOARTHRITIS, RIGHT 08/21/2018 ALBERTO LOERA MD, Ot N18.3 CHRONIC KIDNEY DISEASE, STAGE 3 (MODERAT 08/21/2018 ALBERTO LOERA MD, Ot Z53.09 PROC/TRTMT NOT CARRIED OUT BECAUSE OF CO 08/21/2018 ALBERTO LOERA MD, Ot Z79.01 SENIOR LIVING (CURRENT) USE OF ANTICOAGULANT 08/22/2018 ALBERTO LOERA MD, Ot E78.5 HYPERLIPIDEMIA, UNSPECIFIED 08/22/2018 ALBERTO LOERA MD Ot E89.0 POSTPROCEDURAL HYPOTHYROIDISM 08/22/2018 ALBERTO LOERA MD Ot I10 ESSENTIAL (PRIMARY) HYPERTENSION 08/22/2018 ALBERTO LOERA MD, Ot I48.1 PERSISTENT ATRIAL FIBRILLATION 08/22/2018 ALBERTO LOERA MD, Ot I48.91 UNSPECIFIED ATRIAL FIBRILLATION 08/22/2018 ALBERTO LOERA MD Ot J30.2 OTHER SEASONAL ALLERGIC RHINITIS 08/22/2018 ALBERTO LOERA MD, Ot M17.11 UNILATERAL PRIMARY OSTEOARTHRITIS, RIGHT 08/22/2018 ALBERTO LOERA MD, Ot M54.9 DORSALGIA, UNSPECIFIED 08/22/2018 ALBERTO LOERA MD, Ot Z79.01 SENIOR LIVING (CURRENT) USE OF ANTICOAGULANT 08/22/2018 ALBERTO LOERA MD Ot Z87.440 PERSONAL HISTORY OF URINARY (TRACT) INFE 08/22/2018 ALBERTO LOERA MD Ot Z95.5 PRESENCE OF CORONARY ANGIOPLASTY IMPLANT 11/17/2018 KATHARINA NEW MD Ot V76.12 OTH SCREEN MAMMO-MALIGN NEOPLASM OF [place] 11/17/2018 KATHARINA NEW MD Ot V76.12 OTH SCREEN MAMMO-MALIGN NEOPLASM OF [place] 11/17/2018 KATHARINA NEW MD Ot 793.80 UNSPEC ABNORMAL MAMMOGRAM 11/17/2018 KATHARINA NEW MD Ot 793.80 UNSPEC ABNORMAL MAMMOGRAM 11/17/2018 Ot V76.12 OTH SCREEN MAMMO- MALIGN NEOPLASM OF [place] 11/17/2018 WANG SINGLETON, YUNG A Ot N20.0 CALCULUS OF KIDNEY 11/17/2018 WANG SINGLETON, YUNG A Ot R31.9 HEMATURIA, UNSPECIFIED 11/19/2018 ALBERTO LOERA MD Ot M46.86 OTHER SPECIFIED INFLAMMATORY SPONDYLOPAT 11/19/2018 ALBERTO LOERA MD Ot M47.26 OTHER SPONDYLOSIS WITH RADICULOPATHY, EVIE 11/19/2018 ALBERTO LOERA MD Ot M48.061 SPINAL STENOSIS, LUMBAR REGION WITHOUT N 11/19/2018 ALBERTO LOERA MD Ot M51.16 INTERVERTEBRAL DISC DISORDERS W RADICULO 12/09/2018 ALBERTO LOERA MD Ot M46.86 OTHER SPECIFIED INFLAMMATORY SPONDYLOPAT 12/09/2018 ALBERTO LOERA MD Ot M47.26 OTHER SPONDYLOSIS WITH RADICULOPATHY, EVIE 12/09/2018 ALBERTO LOERA MD Ot M48.061 SPINAL STENOSIS, LUMBAR REGION WITHOUT N 12/09/2018 ALBERTO LOERA MD Ot M51.16 INTERVERTEBRAL DISC DISORDERS W RADICULO 12/17/2018 ALBERTO LOERA MD Ot M46.86 OTHER SPECIFIED INFLAMMATORY SPONDYLOPAT 12/17/2018 ALBERTO LOERA MD Ot M47.26 OTHER SPONDYLOSIS WITH RADICULOPATHY, EVIE 12/17/2018 ALBERTO LOERA MD Ot M48.061 SPINAL STENOSIS, LUMBAR REGION WITHOUT N 12/17/2018 ALBERTO LOERA MD Ot M51.16 INTERVERTEBRAL DISC DISORDERS W RADICULO Procedures Code Description Performed By Performed On [id number] REPLACE OF R KNEE JT WITH SYNTH SUB, KIERAN 08/19/2018 Results Test Result Range Complete blood count [...] Automated erythrocyte mean corpuscular hemoglobin concentration measurement (mass/volume) 32 g/dL 32-36 Automated erythrocyte distribution width ratio 13.5 % 10.0- 14.5 Automated blood platelet count (count/volume) 239 10*3/uL [...] Blood monocytes automated count (number/volume) 0.6 10*3 0.0- 1.0 Automated eosinophil count 0.1 10*3/uL 0.0-0.3 Automated [...] Serum or plasma aspartate aminotransferase measurement (enzymatic activity/volume) 15 U/L 5-34 Serum or plasma alanine aminotransferase measurement (enzymatic activity/volume) 10 U/L 0-55 Serum or plasma protein measurement (mass/volume) 6.5 g/dL 6.4-8.2 Serum or plasma albumin measurement (mass/volume) 3.9 g/dL 3.2-4.5 Methicillin resistant Staphylococcus aureus (MRSA) screening culture - 11/04/16 15:20 Methicillin resistant Staphylococcus aureus (MRSA) screening culture NEG NRG Complete blood count (CBC) with automated white [...] Automated erythrocyte mean corpuscular hemoglobin concentration measurement (mass/volume) 33 g/dL 32-36 Automated erythrocyte distribution width ratio 13.0 % 10.0- 14.5 Automated blood platelet count (count/volume) 289 10*3/uL [...] Blood monocytes automated count (number/volume) 0.6 10*3 0.0- 1.0 Automated eosinophil count 0.1 10*3/uL 0.0-0.3 Automated [...] Serum or plasma aspartate aminotransferase measurement (enzymatic activity/volume) 15 U/L 5-34 Serum or plasma alanine aminotransferase measurement (enzymatic activity/volume) 13 U/L 0-55 Serum or plasma protein [...] resistant Staphylococcus aureus (MRSA) screening culture - 08/05/18 12:20 Methicillin resistant Staphylococcus aureus (MRSA) screening culture NEG NRG Complete urinalysis with reflex to culture - 08/05/18 12:25 Urine color determination YELLOW NRG Urine clarity determination CLEAR NRG Urine pH measurement by test strip 5 5-9 Specific gravity of urine by test strip 1.020 1.016-1.022 Urine protein assay by test strip, semi-quantitative [...] sediment leukocyte count by microscopy (number/high power field) [HPF] NRG Bacteria detection in urine sediment [...] NRG Bacterial urine culture - 08/05/18 12:25 Blood type T Indirect antibody screen panel - 08/12/18 06:25 ABO+Rh group AP NRG Transfusion band number [id number] NRG Blood group antibody screen NEGATIVE NRG Blood type T Indirect antibody screen panel - 08/19/18 08:55 ABO+Rh group AP NRG Transfusion band number [id number] NRG Blood group antibody screen NEGATIVE NRG Whole blood hemoglobin and hematocrit panel - 08/20/18 06:19 Venous blood hemoglobin measurement (mass/volume) 12.2 g/dL 11.5-16.0 Blood hematocrit (volume fraction) 36 % 35-52 Automated blood complete blood count (hemogram) panel - 08/21/18 06:00 Blood leukocytes automated count (number/volume) 9.3 10*3/uL 4.3-11.0 Blood erythrocytes automated count (number/volume) 3.63 10*6/uL 4.35-5.85 Venous blood hemoglobin measurement (mass/volume) 11.2 g/dL 11.5-16.0 Blood hematocrit (volume fraction) 34 % 35-52 Automated erythrocyte mean corpuscular volume 92 [foz_us] 80-99 Automated erythrocyte mean corpuscular hemoglobin (mass per erythrocyte) 31 pg 25-34 Automated erythrocyte mean corpuscular hemoglobin concentration measurement (mass/volume) 33 g/dL 32-36 Automated erythrocyte distribution width ratio 12.5 % 10.0- 14.5 Automated blood platelet count (count/volume) 198 10*3/uL 130-400 Automated blood platelet mean volume measurement 10.3 [foz_us] 7.4-10.4 Comprehensive metabolic panel - 08/21/18 06:00 Serum or plasma sodium measurement (moles/volume) 136 mmol/L 135-145 Serum or plasma potassium measurement (moles/volume) 4.0 mmol/L 3.6-5.0 Serum or plasma chloride measurement (moles/volume) 105 mmol/L 98-107 Carbon dioxide 23 mmol/L 21-32 Serum or plasma anion gap determination (moles/volume) 8 mmol/L 5-14 Serum or plasma urea nitrogen measurement (mass/volume) 11 mg/dL 7-18 Serum or plasma creatinine measurement (mass/volume) 0.80 mg/dL 0.60-1.30 Serum or plasma urea nitrogen/creatinine mass ratio 14 NRG Serum or plasma creatinine measurement with calculation of estimated glomerular filtration rate > NRG Serum or plasma glucose measurement (mass/volume) 108 mg/dL 70-105 Serum or plasma calcium measurement (mass/volume) 9.1 mg/dL 8.5-10.1 Serum or plasma total bilirubin measurement (mass/volume) 0.9 mg/dL 0.1-1.0 Serum or plasma alkaline phosphatase measurement (enzymatic activity/volume) 57 U/L 40-136 Serum or plasma aspartate aminotransferase measurement (enzymatic activity/volume) 17 U/L 5-34 Serum or plasma alanine aminotransferase measurement (enzymatic activity/volume) 9 U/L 0-55 Serum or plasma protein measurement (mass/volume) 5.9 g/dL 6.4-8.2 Serum or plasma albumin measurement (mass/volume) 3.4 g/dL 3.2-4.5 CALCIUM CORRECTED 9.6 mg/dL 8.5-10.1 THYROID STIMULATING HORMONE - 08/21/18 06:00 THYROID STIMULATING HORMONE 0.53 u[iU]/mL 0.35-4.94 Whole blood hemoglobin and hematocrit panel - 08/22/18 06:50 Venous blood hemoglobin measurement (mass/volume) 11.0 g/dL 11.5-16.0 Blood hematocrit (volume fraction) 32 % 35-52 Encounters ACCT No. Visit Date/Time Discharge Status Pt. Type Provider Facility Loc./Unit Complaint [id number] 04/20/2019 11:57:00 04/20/2019 23:59:59 CLS Preadmit ONEIL DIAZ MD [facility] CARD PAF [id number] 11/18/2018 08:21:00 11/18/2018 23:59:59 CLS Outpatient ALBERTO LOERA MD [facility] RAD RADICULOPATHY,LUMBAR REGION [id number] 08/19/2018 08:25:00 08/22/2018 10:34:00 DIS Inpatient ALBERTO LOERA MD [facility] 4TH OSTEOARTHRITIS [id number] 08/12/2018 05:54:00 08/12/2018 07:20:00 DIS Outpatient ALBERTO LOERA MD [facility] SDC OSTEOARTHRITIS OF RIGHT KNEE [id number] 08/05/2018 11:33:00 08/05/2018 12:35:00 DIS Outpatient ALBERTO LOERA MD [facility] PREOP OSTEOARTHRITIS RIGHT KNEE [id number] 04/04/2017 08:39:00 04/04/2017 23:59:59 CLS Outpatient YUNG PIÑA MD [facility] RAD HEMATURIA [id number] 11/12/2016 06:25:00 11/13/2016 12:40:00 DIS Outpatient YUNG PIÑA MD [facility] SDC CYSTOCELE [id number] 11/04/2016 14:00:00 11/04/2016 16:00:00 DIS Outpatient YUNG PIÑA MD [facility] PREOP CYSTOCELE [id number] 10/07/2014 08:48:00 10/07/2014 23:59:59 CLS Outpatient KATHARINA NEW MD [facility] RAD 3 MONTH FOLLOW UP [id number] 07/26/2014 13:14:00 07/26/2014 23:59:59 CLS Outpatient KATHARINA NEW MD [facility] RAD ABNORMAL MAMMO [id number] 07/12/2014 14:24:00 07/12/2014 23:59:59 CLS Outpatient KATHARINA NEW MD [facility] RAD SCREENING [id number] 07/09/2013 09:40:00 07/09/2013 23:59:59 CLS Outpatient KATHARINA NEW MD [facility] RAD SCREENING [id number] 05/05/2019 13:00:00 PEN Preadmit ONEIL DIAZ MD [facility] CATH CAD [id number] 07/17/2015 10:42:00 Document Registration [id number] 02/11/2013 07:53:00 Document Registration [id number] 10/08/2012 06:57:00 Document Registration [id number] 10/07/2012 08:05:00 Document Registration [id number] 07/08/2012 12:10:00 Document Registration [id number] 10/22/2011 13:17:00 Document Registration [id number] 07/16/2011 12:59:00 Document Registration [id number] 06/28/2011 11:27:00 Document Registration
[2019-05-05] MEDS ORDERED: HEParin (CATH LAB) 2,000 ML IV ONE (10:14)
[2019-05-05] MEDS ORDERED: NS IV 1000 ML 1,000 ML ONE (10:14)
[2019-05-05] MEDS ORDERED: LIDOCAINE 1% INJ 20 ML 20 ML VIAL ONE (10:14)
[2019-05-05] MEDS ORDERED: NS IV 1000 ML 1,000 ML IV SCH ×3 (10:15→12:48)
[2019-05-05 10:46] LABS: HEMOGLOBIN 12.4 G/DL (11.5-16.0); MEAN PLATELET VOLUME 10.1 FL (7.4-10.4); RED CELL DISTRIBUTION WIDTH 14.3 % (10.0-14.5); WHITE BLOOD COUNT 5.6 10^3/uL (4.3-11.0)
[2019-05-05] MEDS ORDERED: METO-370 PO (10:58)
[2019-05-05] MEDS ORDERED: DILT180C54 PO (10:58)
[2019-05-05] MEDS ORDERED: CEPH250C PO (10:58)
--- NOTE | 2019-05-05 10:59 | NUR ---
WENT OVER MEDICATION BOTTLES THE PATIENT BROUGHT IN WITH HER WELL THE LIST FROM THE OFFICE. SHE STATES SHE STILL ALTERNATES BETWEEN THE TWO LEVOTHYROXINE STRENGTHS BUT SHE ONLY BROUGHT THE ONE THAT IS DUE TO BE TAKEN TODAY. SHE ALSO TAKES ESTRADIOL ONCE WEEKLY BUT DID NOT BRING THAT SINCE IT IS NOT DUE UNTIL FRIDAY. SHE STATES AT HOME SHE HAS XANAX NEEDED BUT DOES NOT TAKE IT VERY OFTEN.
--- NOTE | 2019-05-05 11:01 | Diagnostic Imaging Report ---
INDICATION: Coronary artery disease and chest pain. Time of exam: 10:52 AM Comparison is made with prior study 08/05/2018. The heart is enlarged but stable. There is some minimal linear scarring in the left base. Otherwise, the lungs are clear. The pulmonary vascularity is normal. No infiltrate, effusion or pneumothorax is seen. IMPRESSION: No acute cardiopulmonary process is detected. Dictated by: Dictated on workstation # [id number]
[2019-05-05 11:02] LABS: PROTHROMBIN TIME PATIENT 13.5 SEC (12.2-14.7)
[2019-05-05 11:06] LABS: ALBUMIN 4.5 GM/DL (3.2-4.5); BILIRUBIN,TOTAL 0.7 MG/DL (0.1-1.0); CALCIUM 9.7 MG/DL (8.5-10.1); CREATININE SERUM 1.31 MG/DL (0.60-1.30); POTASSIUM 4.3 MMOL/L (3.6-5.0); TOTAL PROTEIN 7.4 GM/DL (6.4-8.2)
[2019-05-05] MEDS ORDERED: fentaNYL INJECTION 100 MCG/2 ML AMP ONE (11:57)
[2019-05-05] MEDS ORDERED: MIDAZOLAM 5 MG/5 ML (VERSED) VIAL ONE (11:57)
--- NOTE | 2019-05-05 11:57 | Cardiac Procedure Note-CS/ASA ---
Pre-Procedure Note Pre-Op Procedure Note H&P Reviewed The H&P was reviewed, patient examined and no changes noted. Date H&P Reviewed: May 05, 2019 Time H&P Reviewed: 11:57 Conscious Sedation Pre-Proced Time 11:57 ASA Score 3 For ASA 3 and 4: Consider anesthesia and medical clearance. Also, for patients with a history of failed moderate sedation consider anesthesia. Airway Lungs Heart ASA score ASA 1: a normal healthy patient ASA 2: a patient with a mild systemic disease (mid diabetes, controlled hypertension, obesity x ASA 3: a patient with a severe systemic disease that limits activity (angina, COPD, prior Myocardial infarction) ASA 4: a patient with an incapacitating disease that is a constant threat to life (CHF, renal failure) ASA 5: a moribund patient not expected to survive 24 hrs. (ruptured aneurysm) ASA 6: a declared brain- patient whose organs are being harvested. For emergent operations, add the letter E after the classification Mallampati Classification Grade 3 Sedation Plan Analgesia, Amnesia, Plan communicated to team members, Discussed options with patient/fam, Discussed risks with patient/fam The patient is an appropriate candidate to undergo the planned procedure, sedation, and anesthesia. The patient immediately re-assessed prior to indication. ONEIL DIAZ MD May 05, 2019 11:57
--- NOTE | 2019-05-05 12:51 | Discharge Inst-Post CATH ---
Discharge Inst-CATH/EP Post Cardiac Cath/EP D/C Inst Follow Up/Plan Appointment with Dr Mora's office in 2-4 weeks <b>CARDIAC CATH/EP PROCEDURE DISCHARGE INSTRUCTIONS</b> Cardiac Rehab Please be expecting a follow up call from Cardiac Rehab within in one week. ACTIVITY * Go Home directly and rest. * Limit activity of the leg (or wrist if it was used) for 7 days including aerobics, swimming, jogging, bicycling, etc. * Restrict stair-climbing for 7 days if possible, if not, climb up with your non-cath leg, then bring together on the same step. * Avoid lifting, pushing, pulling or excessive movement of the affected extremity for 7 days. * Customary sexual activity may be resumed after 2 days-use caution not to use a position that strains or causes pain to the affected extremity. * No driving for 24 hours. * NO SMOKING. * Avoid straining for bowel movements for 7 days. * Gentle walking on level ground is allowed. * Returning to work will depend on the type of procedure and the results. Your doctor will discuss this with you. CALL YOUR DOCTOR FOR ANY OF THE FOLLOWING: *If bleeding from the puncture site occurs- Apply gentle pressure to site with clean cloth and call your doctor or EMS. * If a knot or lump forms under the skin, increases in size, or causes pain. * If bruising appears to be worsening or moving further down your leg instead of disappearing. * Temperature above 101 F. CARE OF YOUR GROIN INCISION; * Bruising or purple discoloration of the skin near the puncture site is common. * You may shower only, no bathtub bathing for 5 days. Be careful to avoid slipping as your leg may feel stiff. * If a closure device was used on your femoral artery, please see the attached guide regarding care of the device and your leg. * Leave dressing on FOR 24 hours. CARE OF YOUR WRIST INCISION; * Bruising or purple discoloration of the skin near the puncture site is common. * You may shower. * DO NOT submerge wrist. * Leave dressing on FOR 24 hours. ONEIL MORA MD May 05, 2019 12:51
--- NOTE | 2019-05-05 12:56 | Cardiac Cath Report ---
Cardiac Cath Report Physician (s)/Science Teacher (s) Physician ONEIL DIAZ MD Pre-Procedure Diagnosis Pre-Procedure Diagnosis: chest pain, coronary artery disease Post-Procedure Note Procedure Start Date: May 05, 2019 Name of Procedure: Left heart catheterization Findings/Procedure Note PROCEDURE NOTE: 78 years old lady with history of coronary artery disease stenting to the LAD, has been having chest pain, shortness of breath. Has baseline extensive disease, scheduled for cardiac catheterization possible PTCA. After explaining the procedure to the patient, all pros and cons were explained, all questions were answered. The patient signed the consent and then she was placed on the cardiac catheterization laboratory. Groin was prepped SL fashion local anesthesia was used. Sheath placed in the right femoral artery. Agustin right and left catheter were used to access the coronary system. JR catheter was advanced to the left ventricular cavity, pressure was measured, no left ventricular gram was done, pullback LV to aorta was done. At the end of the procedure the sheath was removed. Closure device was used FINDINGS: Hemodynamics LV 145/17, end-diastolic pressure of 17 Aorta 137/77 mean of 81 ANATOMY: Left Main is normal Left Anterior Descending is moderate in size, Stent is patent, mild disease distally nonobstructive disease Left Circumflex is moderate in size with mild disease no obstructive disease Right Coronory Artery as mild disease nonobstructive disease LV Gram was not done, pressure was measured CONCLUSION: 1. Patent stent in the LAD with mild coronary artery disease nonobstructive disease 2. Normal left ventricular end-diastolic pressure DISCUSSION AND RECOMMENDATION: continue with medical therapy Anesthesia Type: Conscious Sedation Estimated blood loss (mL): 15 ml Contrast Amount: 16 ml Total Radiation Dose: 219 mGy Post-Procedure Diagnosis Post-operative diagnosis: chest pain Coronary artery disease Hypertension Hyperlipidemia ONEIL DIAZ MD May 05, 2019 12:56
[2019-05-05] MEDS ORDERED: PATIENT MAY USE OWN MEDS, ALL PO SCH (13:00)
== END 2019-05-05 17:06 | disposition home or self-care (01) ==
LOC: CATH 10:04 → SDC 13:29 → CATH 17:06
PROVIDERS: ATTEND Internal Medicine Cardiovascular Disease
DX: R07.9 Chest pain, unspecified (principal); I25.10 Atherosclerotic heart disease of native coronary artery without angina pectoris; I12.9 Hypertensive chronic kidney disease with stage 1 through stage 4 chronic kidney disease, or unspecified chronic kidney disease; E78.2 Mixed hyperlipidemia; I48.0 Paroxysmal atrial fibrillation; R00.2 Palpitations; I34.0 Nonrheumatic mitral (valve) insufficiency; N18.9 Chronic kidney disease, unspecified; E03.9 Hypothyroidism, unspecified; I65.23 Occlusion and stenosis of bilateral carotid arteries; M19.91 Primary osteoarthritis, unspecified site; Z96.651 Presence of right artificial knee joint; Z79.01 Long term (current) use of anticoagulants; Z79.899 Other long term (current) drug therapy
CPT/HCPCS: 36415; 71045; 80053; 80061; 85027; 85610; 85730; 87081; 93458

== ENCOUNTER → 2019-06-25 | Outpatient (CLI) | payer MEDICARE ==
[~2019-06-25] MED LIST changes: +CEPH250C PO; +DILT180C54 PO; +METO-370 PO
== END ==
LOC: CARD 12:01
PROVIDERS: ATTEND Pediatrics
DX: I08.3 Combined rheumatic disorders of mitral, aortic and tricuspid valves (principal); I25.10 Atherosclerotic heart disease of native coronary artery without angina pectoris
CPT/HCPCS: 93306

== ENCOUNTER 2019-08-19 13:03 | Outpatient (CLI) | payer MEDICARE ==
[~2019-08-19] VITALS: Ht 165.1 cm; Wt 87.7 kg
[2019-08-19 13:28] VITALS: BP 137/81
[2019-08-19 13:59] LABS: BASOPHILS % (AUTO) 1 % (0-10); EOSINOPHILS # (AUTO) 0.1 10^3/uL (0.0-0.3); EOSINOPHILS % (AUTO) 2 % (0-10); HEMATOCRIT 40 % (35-52); HEMOGLOBIN 12.9 G/DL (11.5-16.0); LYMPHOCYTES # (AUTO) 1.1 X 10^3 (1.0-4.0); LYMPHOCYTES % (AUTO) 18 % (12-44); MEAN CORPUSCULAR HEMOGLOBIN 29 PG (25-34); MEAN CORPUSCULAR HGB CONC 32 G/DL (32-36); MEAN CORPUSCULAR VOLUME 89 FL (80-99); MEAN PLATELET VOLUME 10.5 FL (7.4-10.4); MONOCYTES # (AUTO) 0.6 X 10^3 (0.0-1.0); MONOCYTES % (AUTO) 10 % (0-12); NEUTROPHILS # (AUTO) 4.2 X 10^3 (1.8-7.8); NEUTROPHILS % (AUTO) 70 % (42-75); PLATELET COUNT 265 10^3/uL (130-400); RED CELL DISTRIBUTION WIDTH 13.4 % (10.0-14.5); WHITE BLOOD COUNT 6.1 10^3/uL (4.3-11.0)
[2019-08-19 14:00] LABS: BILIRUBIN,URINE NEGATIVE (NEGATIVE); CLARITY,URINE CLEAR; COLOR,URINE YELLOW; GLUCOSE, URINE (UA) NEGATIVE (NEGATIVE); KETONES,URINE NEGATIVE (NEGATIVE); LEUKOCYTE ESTERASE ,URINE 3+ (NEGATIVE); NITRITE,URINE NEGATIVE (NEGATIVE); PH,URINE 6.5 (5-9); PROTEIN,URINE 1+ (NEGATIVE); UROBILINOGEN,URINE NORMAL (NORMAL)
[2019-08-19] MEDS ORDERED: PUMP300C PO (14:00)
[2019-08-19] MEDS ORDERED: MELA5CAP PO (14:00)
[2019-08-19] MEDS ORDERED: HYOS-20 PO (14:00)
[2019-08-19] MEDS ORDERED: AMIT10TA6 PO (14:00)
[2019-08-19] MEDS ORDERED: ACET-93 PO (14:00)
[2019-08-19] MEDS ORDERED: CRAN500T2 PO (14:00)
[2019-08-19 14:16] LABS: INR 1.1 (0.8-1.4); PROTHROMBIN TIME PATIENT 14.7 SEC (12.2-14.7)
[2019-08-19 14:23] LABS: ALBUMIN 4.3 GM/DL (3.2-4.5); BILIRUBIN,TOTAL 0.6 MG/DL (0.1-1.0); CALCIUM 9.7 MG/DL (8.5-10.1); CREATININE SERUM 1.07 MG/DL (0.60-1.30); POTASSIUM 3.8 MMOL/L (3.6-5.0); TOTAL PROTEIN 7.2 GM/DL (6.4-8.2)
[2019-08-19 14:26] LABS: BACTERIA,URINE TRACE /HPF; WBC,URINE >100 /HPF
[2019-08-19 14:32] LABS: ERYTHROCYTE SEDIMENTATION RATE 23 MM/HR (0-30)
[2019-08-19] MEDS ORDERED: CRAN1TAB4 PO (14:38)
== END 2019-08-19 15:30 ==
LOC: PREOP 13:03
PROVIDERS: ATTEND Orthopaedic Surgery
DX: Z01.818 Encounter for other preprocedural examination (principal); M17.12 Unilateral primary osteoarthritis, left knee
CPT/HCPCS: 36415; 80053; 81000; 85025; 85610; 85652; 86850; 86900; 86901; 87081; 87088

== ENCOUNTER 2019-09-01 05:54 | Inpatient (IN) | payer MEDICARE ==
--- NOTE | 2019-08-19 14:41 | NUR ---
[facility] SENT OVER A COPY OF THE PATIENTS MEDICATION LIST. I COMPARED THAT LIST WITH THE EXT MED HX AND WHAT WAS ENTERED BY [facility]. THERE WERE NO DISCREPANCIES NOTED SO I DID NOT CALL AND RE-INTERVIEW THE PATIENT AT THIS TIME. I DO NOT SEE WHERE [facility] HAS BEEN FILLED RECENTLY ACCORDING TO THE EXT MED HX HOWEVER IT IS ON HER MEDICATIONS LIST, SHE MUST RECEIVE SAMPLES. OTC MEDS REPORTED: MELATONIN HS PRN CRANBERRY DAILY AZO BID TYLENOL PRN
--- NOTE | 2019-08-20 12:37 | HISTORY AND PHYSICAL ---
DATE OF SERVICE: 09/01/2019 ADMISSION HISTORY AND PHYSICAL DATE OF ADMISSION: 09/01/2019. DATE OF SURGERY: 09/01/2019. CHIEF COMPLAINT: Left total knee arthroplasty. HISTORY OF PRESENT ILLNESS: The patient is a 78-year-old female with longstanding progressive left knee pain. Radiographs revealed severe tricompartmental osteoarthritis. She has undergone treatment with injections, anti-inflammatories and rest without relief and due to functional impairment and failure to improve with conservative measures, the patient has elected to proceed with surgical intervention. REVIEW OF SYSTEMS: No chest pain, no shortness of breath, no dysuria. PAST MEDICAL HISTORY: Coronary artery disease, chronic kidney disease, hypertension, osteoarthritis, mitral regurgitation, atrial fibrillation, dyslipidemia, hypothyroidism. PAST SURGICAL HISTORY: Lumbar herniated disk and decompression, thyroidectomy, hiatal herniorrhaphy, hysterectomy, bladder suspension, breast biopsy, coronary stent placement, right total knee arthroplasty. FAMILY HISTORY: Significant for ischemic heart disease and diabetes. PRIMARY CARE PROVIDER: Dr. Mendoza. MEDICATIONS: 1. Lisinopril. 2. Meloxicam. 3. Eliquis. 4. Estradiol. 5. Ondansetron. 6. Acetaminophen. 7. Trimethoprim. 8. Levothyroxine. 9. Alprazolam. 10. Tylenol. ALLERGIES: ARE TO STATINS AND . SOCIAL HISTORY: The patient denies alcohol, tobacco use. PHYSICAL EXAMINATION: GENERAL: The patient is well developed, well-nourished, in no acute distress. HEENT: Normocephalic, atraumatic. Pupils are equal, round, reactive to light. Oropharynx is clear. NECK: Supple, no lymphadenopathy. LUNGS: Clear to auscultation bilaterally. HEART: Regular rate and rhythm. ABDOMEN: Soft, nontender, nondistended. EXTREMITIES: The left knee demonstrates varus alignment. Range of motion is 0/3/115. There is no varus or valgus laxity. Negative anterior and posterior drawer. Her patella tracks well. IMPRESSION: Severe left knee tricompartmental osteoarthritis, unresponsive to conservative measures. PLAN: Left total knee arthroplasty. The risks, benefits, options, ramifications and recovery have been discussed at length with the patient. She understands and wishes to proceed. She will require regular inpatient admission due to pain, gait abnormalities and comorbidities as well as need for physical therapy. Job ID: [id number] DocumentID: [id number] Dictated Date: 08/20/2019 11:15:56 Firewood Cutter Date: 08/20/2019 12:37:02 Dictated By: ALBERTO LOERA MD
[2019-09-01] VITALS (16 sets, daily range): BP systolic 127–166; BP diastolic 67–106
[~2019-09-01] VITALS: Ht 157 cm; Wt 87.7 kg
[~2019-09-01 05:54] MED LIST changes: +ACET-93 PO; +AMIT10TA6 PO; +CRAN1TAB4 PO; +CRAN500T2 PO; +HYOS-20 PO; +MELA5CAP PO; +PUMP300C PO
[2019-09-01] MEDS: LACTATED RINGERS 1,000 ML IV PRN ×2 (06:37→07:51)
[2019-09-01] MEDS ORDERED: CEFUROXIME INJECTION 1,500 MG in WATER (STERILE) FOR INJECTION 15 ML IV ONE (06:45)
[2019-09-01] MEDS ORDERED: ONDANSETRON 4 MG/2 ML (SDV) Z0FRAN IV ONE (06:45)
[2019-09-01] MEDS ORDERED: FAMOTIDINE 20MG/2ML IV (PEPCID) IV ONE (06:45)
[2019-09-01] MEDS ORDERED: LIDOCAINE PF 2% 5 ML (XYLOCAINE) VIAL ONE ×2 (06:47)
[2019-09-01] MEDS ORDERED: MIDAZOLAM 2 MG/2 ML (VERSED) VIAL ONE (06:47)
[2019-09-01] MEDS ORDERED: BUPIVACAINE 0.5% 30 ML (SENSORCAINE) VIAL ONE (06:47)
[2019-09-01] MEDS ORDERED: proPOfol 200 MG/20 ML (DIPRIVAN) VIAL IV ONE (06:51)
[2019-09-01] MEDS ORDERED: ONDANSETRON 4 MG/2 ML (SDV) Z0FRAN ONE ×2 (06:51→06:53)
[2019-09-01] MEDS ORDERED: DEXAMETHASONE 10 MG/ML (DECADRON) 1 ML VIAL ONE (06:51)
[2019-09-01] MEDS ORDERED: fentaNYL INJECTION 100 MCG/2 ML AMP ONE ×2 (06:51→07:56)
[2019-09-01] MEDS ORDERED: FAMOTIDINE 20MG/2ML IV (PEPCID) ONE (06:53)
[2019-09-01] MEDS ORDERED: diphenhydrAMINE 50 MG/ML INJ (BENADRYL) IVP PRN (07:15)
[2019-09-01] MEDS ORDERED: morphine PCA 100 MG/100 ML BAG IV PRN (07:15)
[2019-09-01] MEDS ORDERED: ONDANSETRON 4 MG/2 ML (SDV) Z0FRAN IVP PRN ×2 (07:15→09:00)
[2019-09-01] MEDS ORDERED: oxyCODONE/APAP 5/325MG (PERCOCET 5) TABLET PO PRN (07:15)
[2019-09-01] MEDS ORDERED: ACETAMINOPHEN 325 MG TABLET PO PRN (07:15)
--- NOTE | 2019-09-01 07:18 | Progress Note-Pre Operative ---
Pre-Operative Progress Note H&P Reviewed The H&P was reviewed, patient examined and no changes noted. Date Seen by Provider: Sep 01, 2019 Time Seen by Provider: 07:11 Date H&P Reviewed: Sep 01, 2019 Time H&P Reviewed: 07:10 Pre-Operative Diagnosis: left knee primary osteoarthritis ALBERTO LOERA MD Sep 01, 2019 07:18
--- NOTE | 2019-09-01 07:19 | Progress Note-Post Operative ---
Post-Operative Progess Note Surgeon (s)/Retail Customer Service Representative (s) Surgeon ALBERTO LOERA MD Retail Customer Service Representative: Bob Dye Pre-Operative Diagnosis left knee primary osteoarthritis Post-Operative Diagnosis left knee primary osteoarthritis Procedure & Operative Findings Date of Procedure 09/01/19 Procedure Performed/Findings left total knee arthroplasty Anesthesia Type GETA Estimated Blood Loss Estimated blood loss (mL): minimal Specimens/Packing Specimens Removed none Packing: none ALBERTO LOERA MD Sep 01, 2019 07:19
--- NOTE | 2019-09-01 07:22 | D/C HH Face to Face Order ---
D/C Face to Face Orders Reconcile Patient Problems Problems Reviewed?: Yes Instructions for Patient [facility] ReInnervate, Patient Instructions/FollowUp: three weeks Physician to follow Patient: three weeks Discharge Diet for Home: Regular Diet Patient Data-Allergies,Ht & Wt Patient Allergies: Coded Allergies: Yhyivii-Uus-Njv Reductase Inhibitor (Verified Allergy, Intermediate, WEAKNESS, 08/19/19) aspirin (Unverified Allergy, Mild, HIVES, 08/19/19) methocarbamol (Unverified Allergy, Mild, HIVES, 08/19/19) Height (Feet): 5 Height (Inches): 2.00 Weight (Pounds): 172 Weight (Ounces): 0.0 Home Health Need/Face to Face Date of Face to Face: Sep 01, 2019 Clinical Findings: Instability, Muscle weakness, Pain with ambulation, Unsteady gait I have seen Pt zigw-ro-qwkw: Yes Discharged To: Home Diagnosis/Conditions: left total knee arthroplasty Patient is Homebound due to: Lorena fall risk due to instabilty, Muscle weakness, Pain w/ambulation Homebound Status Due to the above stated illness, injury or surgical procedure (medical condition or diagnosis) and associated clinical findings, the patient is homebound because of his/her inability to leave home except with aid of a garcia pportive device and/or person AND leaving the home requires a considerable and taxing effort or is medically contraindicated. Pt req the following assistanc: Walker Home Health Nursing Orders Home Health Services Order: Physical Therapy-Evaluate & Treat DC left knee mira and apply steri strips 09/15/19 Home Health Infusion Therapy Line Start Date: Sep 01, 2019 Therapy Orders Therapy Orders: Physical Therapy, PT to assess for OT Therapy Specific Orders: Eval assistive deivces, Teach enviro modifications/safety, Gait training, Increase strength/endurance, Provider maintenance therapy, Restore ROM Certify Stmt I certify that this patient is under my care and that I, a nurse practitioner or a physician; a health education assistant working with me, had a face to face encounter that - meets the physician face to face encounter requirements with this patient as reyes cooper. ALBERTO LOERA MD Sep 01, 2019 07:22
[2019-09-01] MEDS ORDERED: INTRA-ARTICULAR IU ONE ×5 (07:30)
[2019-09-01] MEDS ORDERED: TRANEXAMIC ACID 100 MG/ML 10 ML INJECTION IV ONE (07:38)
[2019-09-01] MEDS ORDERED: SEVOFLURANE (ULTANE) 15 ML INHAL SOLN ONE ×7 (07:58→08:47)
[2019-09-01] MEDS ORDERED: LABETALOL HCL 20 MG/4 ML VIAL ONE ×2 (08:05→09:55)
[2019-09-01] MEDS ORDERED: HYDROmorphone 2 MG/ML VIAL (DILAUDID) IV ONE (09:00)
[2019-09-01] MEDS ORDERED: morphine INJ 10 MG/ML 1ML (SYR OR VIAL) IVP ONE (09:00)
[2019-09-01] MEDS ORDERED: morphine INJ 10 MG/ML 1ML (SYR OR VIAL) ONE (09:14)
[2019-09-01] MEDS ORDERED: HYDROmorphone 2 MG/ML VIAL (DILAUDID) ONE (09:42)
--- NOTE | 2019-09-01 09:51 | Progress Note ---
Standard Progress Note Progress Notes/Assess & Plan Date Seen by a Provider: Sep 01, 2019 Time Seen by a Provider: 09:49 Progress/Assessment & Plan post op check no complaints radiographs--HW well positioned without fracture LLE-- 2plus DP pulse with brisk cap refill. intact sensation throughout. intact DF and PF of toes and ankle s/p LTKA mobilize as able ALBERTO LOERA MD Sep 01, 2019 09:51
[2019-09-01] MEDS ORDERED: LABETALOL HCL 100 MG/20 ML VIAL IV PRN (10:00)
--- NOTE | 2019-09-01 10:00 | NUR ---
SHARDA BLANDON admitted to room 430-1, with an admitting diagnosis of total left knee replacement by dr Albrecht, on 09/01/19 OR , accompanied by staff and family present in room .SHARDA BLANDON introduced to surroundings, call light, bed controls, phone, TV, temperature control, lights, meal times, smoking policy, visitor policy, side rail policy, bathrooms and showers. Patient Rights given to patient in the handbook. SHARDA BLANDON verbalizes understanding that [facility] is not responsible for the loss or damage to any personal effects or valuables that are kept in the patients posession during their hospitalization. The following Patient Care Plans and discharge were discussed with the patient and family present. SHARDA BLANDON verbalizes understanding of Interdisciplinary Patient Education. Patient and family were informed about the Rapid Response Team and its purpose.
--- NOTE | 2019-09-01 10:07 | Diagnostic Imaging Report ---
INDICATION: Status post left knee replacement COMPARISON: None FINDINGS: Two views of the left knee were obtained. Expected postoperative changes are seen from left knee total arthroplasty. Femoral and tibial components appear well-seated. There is no evidence of periprosthetic fracture. There is a small amount of subcutaneous emphysema in the soft tissues over the knee. Postsurgical drain is seen at the level of the patella. Skin mira are seen centrally over the anterior aspect of the knee. No unexpected radiopaque foreign bodies are identified. IMPRESSION: Expected postsurgical changes from left knee total arthroplasty, as described above. No unexpected radiopaque foreign bodies. Dictated by: Dictated on workstation # [id number]
[2019-09-01] MEDS ORDERED: morphine PCA 100 MG/100 ML BAG IV ONE (10:28)
[2019-09-01] MEDS ORDERED: NS IV 1000 ML 1,000 ML ONE (10:29)
[2019-09-01] MEDS: NS IV 1000 ML 1,000 ML IV SCH ×2 (10:44→21:19)
--- NOTE | 2019-09-01 11:01 | OPERATIVE REPORT ---
DATE OF SERVICE: 09/01/2019 PREOPERATIVE DIAGNOSIS: Left knee primary osteoarthritis. POSTOPERATIVE DIAGNOSIS: Left knee primary osteoarthritis. PROCEDURE: Left total knee arthroplasty. SURGEON: Chadd Loera MD CANDY PACKER: Bob Dye, who assisted throughout the procedure and closed the incision. ANESTHESIA: General endotracheal by Dr. Mratins. TOURNIQUET TIME: Approximately 57 minutes at 300 mmHg. ESTIMATED BLOOD LOSS: Minimal. DRAINS: None. COMPLICATIONS: None. POSTOPERATIVE PLAN: Routine total knee arthroplasty protocol. The patient was transferred to the recovery room awake and stable condition. MATERIALS: MicroPort cemented size 4 femur, cemented size 4 tibia with 12 mm insert and cemented size 32 patellar button. STATEMENT OF MEDICAL NECESSITY: The patient is a 78-year-old female with longstanding progressive left knee pain. Radiographs revealed severe tricompartmental osteoarthritis. She has undergone treatment with injections, anti-inflammatories and rest without relief. Due to functional impairment and failure to improve with conservative measures, the patient elected to proceed with surgical intervention. DESCRIPTION OF PROCEDURE: After risks and benefits of procedure were discussed and questions were answered, an informed consent was signed and placed on the chart. The operative site was confirmed in the preoperative holding area and initialed by the surgeon. The patient was transferred to the operating room. After adequate levels of general endotracheal anesthetic were obtained, a timeout was called, confirming the operative site. The left lower extremity was prepped and draped in the usual sterile fashion with the leg elevated and the knee flexed, tourniquet was inflated to 300 mmHg. A standard anterior approach was utilized. Hemostasis was obtained with cautery. A medial parapatellar arthrotomy was performed leaving 1 cm cuff on the patella for later review attachment. A portion of the fat pad was resected and subperiosteal release was performed in the proximal medial tibia being careful stay on the bony surface. The ACL was resected. Intramedullary guide was passed into the femur and the distal cutting block was placed. Distal cut was made. The femur sized to a size 4. The 4 cutting block was placed parallel to the epicondylar axis and cuts were made from posterior to anterior. Subperiosteal release was then carefully performed of the posterior with distal femur being carefully stay on the bony surface. Intramedullary guide was then passed into the tibia. The cutting block was placed and drop venita transected the intermalleolar axis and the cut was made. The four baseplate was placed and again the drop venita transected the intermalleolar axis and the proximal tibia was prepared with a drill and keel punch. The femoral trial was placed with a 12 mm insert. The trochlear cut was made. The patella was prepared using the freehand technique by resecting 10 mm off the undersurface. The peg guide was placed and peg holes were drilled. Trials were inserted with 32 button and 12 mm insert. Full extension was easily obtained under 20 degrees of flexion with gravity was easily obtained. There was no anterior/posterior or medial/lateral laxity in flexion or extension. The trials were removed. The joint was copiously irrigated with pulse lavage. Periarticular block was placed in the posterior capsule, medial and lateral retinaculum extensor mechanism and subcutaneous tissues. The bone ends were irrigated and dried and the tibial baseplate was cemented into position. The superior surface was irrigated and dried and the polyethylene insert was placed. Excessive cement was removed. The distal femur was irrigated and dried and the femoral prosthesis was cemented in position, removing excessive cement. The knee was brought out into full extension until the cement had cured, the undersurface of the patella was irrigated and dried and the patella was cemented into position, removing excessive cement. Once the cement had cured, the knee was taken through range of motion. Full extension was easily obtained under 20 degrees of flexion with gravity was easily obtained. There was no anterior/posterior or medial/lateral laxity in flexion or extension. The patella tracked well. The joint was further irrigated with pulse lavage. The arthrotomy was closed with #2 Tevdek in tvegsd-pn-jdplu interrupted fashion. The knee was flexed and no undue tension was noted at the repair site and the patella tracked well. Subcutaneous tissues were irrigated using a total of 6 liters throughout the procedure. A 0 Vicryl was used for the deep subcutaneous tissues, 2-0 Vicryl for the superficial subcutaneous tissue, mira used on the skin. A soft dressing was applied. The tourniquet was deflated. The patient was transferred to the recovery room awake and in stable condition. Job ID: [id number] DocumentID: [id number] Dictated Date: 09/01/2019 09:00:51 Application Infrastructure Engineer Date: 09/01/2019 11:00:55 Dictated By: CHADD LOERA MD
[2019-09-01] MEDS: SENNA W/DOCUSATE (SENOKOT S) TABLET PO SCH ×2 (11:59→21:19)
--- NOTE | 2019-09-01 13:48 | Physical Therapy Evaluation ---
PT Evaluation-General Medical Diagnosis Admission Date Sep 01, 2019 at 05:54 Medical Diagnosis: left TKA Onset Date: Sep 01, 2019 Therapy Diagnosis Therapy Diagnosis: impaired mobility, strength, endurance, ROM Height/Weight Height (Feet): 5 Height (Inches): 2.00 Weight (Pounds): 172 Weight (Ounces): 0.0 Precautions Precautions/Isolations: Standard Precautions Referral Physician: Bob Dye APRN Reason for Referral: Evaluation/Treatment Medical History Pertinent Medical History: Atrial Fib, Arthritis, HTN, Hypothroidism, OA Additional Medical History PAST MEDICAL HISTORY: Coronary artery disease, chronic kidney disease, hypertension, osteoarthritis, mitral regurgitation, atrial fibrillation, dyslipidemia, hypothyroidism. PAST SURGICAL HISTORY: Lumbar herniated disk and decompression, thyroidectomy, hiatal herniorrhaphy, hysterectomy, bladder suspension, breast biopsy, coronary stent placement, right total knee arthroplasty. Reviewed History: Yes Social History Home: Single Level Current Living Status: Spouse Entry Into Home: Level Entry Prior Prior Level of Function Therapy Quality Codes: 6 Independent with activity with or without an assistive device 5 Patient requires set up or clean up by helper. Patient completes activity by themselves 4 Supervision or touching assist (CGA). [place] provide cues , steadying assist 3 The helper provides less than half the effort to complete the activity 2 The helper provides more than half the effort to complete the activity 1 Dependent. The helper does all the effort to complete an activity 7 Patient refused to complete or attempt activity 9 The patient did not perform the activity before the current illness or injury 88 Not attempted due to Medical conditions or safety concerns Bed Mobility: 7 Transfers (B,C,W/C): 7 Gait: 7 Stairs: 7 Indoor Mobility (Ambulation): Independent Stairs: Independent PT Evaluation-Current Subjective Patient in bed pre tx, agrees to PT, has 3/10 pain in left knee. Pt/Family Goals to be independent at home Objective Patient Orientation: Person, Place, Situation Attachments: Oxygen pure wick (removed by nursing) ROM/Strength ROM Lower Extremities left knee flexion 45 degrees, extension +4 degrees Sensory Vision: Wears Glasses Hearing: Functional Sensation Right Lower Extremit: Intact Sensation Left Lower Extremity: Impaired Sensation Lower Extremities still some numbness inferior to knee Transfers Roll Left to Right (QC): 4 Sit to Lying (QC): 3 Lying to Sitting/Side of Bed(Q: 3 Sit to Stand (QC): 4 Chair/Mlb-zz-Hddzd Xfer(QC): 4 Min assist with left leg during supine <-> sit, cues for hand placement, some dizziness with transitions Gait Does the Patient Walk?: Yes Mode of Locomotion: Walk Anticipated Mode of Locomotion: Walk Walk 10 feet (QC): 4 Walk 50 ft with 2 Turns(QC): 4 Distance: 80' Gait Level of Assist: 4 Gait Persons Needed: 1 Gait Assistive Device: FWW Comments/Gait Description slow, antalgic, poor step through Balance Sitting Static: Normal Sitting Dynamic: Normal Standing Static: Good Standing Dynamic: Good Treatment LLE TKA protocol x10 (AP, QS, HS, SAQ, SLR), CPM applied to left leg and fit to leg and set to 50/-2. Patient in bed post tx with nurse call, phone, tray, in room, SCD's on and [facility] care on. Assessment/Needs Patient has impaired mobility, strength, endurance, ROM. Poor flexion of left knee. Rehab Potential: Fair PT Short Term Goals Short Term Goals Time Frame: Sep 08, 2019 Gait Distance Comment: 4 Gait Assistive Device: FWW (150' with CGA) Additional Short Term Goals bed mobility and transfers SBA PT Plan Problem List Problem List: Activity Tolerance, Functional Strength, Safety, Balance, Gait, Transfer, Bed Mobility, ROM Treatment/Plan Treatment Plan: Continue Plan of Care Treatment Plan: Bed Mobility, Education, Functional Activity Khris, Functional Strength, Gait, Safety, Therapeutic Exercise, Transfers Treatment Duration: Sep 08, 2019 Frequency: At least 5 of 7 days/Wk (IRF) Estimated Hrs Per Day: 1.5 hours per day Patient and/or Family Agrees t: Yes Safety Risks/Education Patient Education: Gait Training, Transfer Techniques, Reviewed Use of Ice, Correct Positioning, Safety Issues Teaching Recipient: Patient Teaching Methods: Demonstration, Discussion Response to Teaching: Reinforcement Needed Discharge Recommendations Plan Patient will perform bed mobility and transfer training, balance and endurance training, functional strengthening, stair training, gait training, and education, to improve functional mobility and independence at home Therapy Discharge Recommendati: Other, See Comments (home with family) Time/GCodes Time In: 1305 Time Out: 1337 Total Billed Treatment Time: 32 Total Billed Treatment 1 visit EVL 20' FA 12' GILMER MENDEZ PT Sep 01, 2019 13:48
[2019-09-01] MEDS ORDERED: FLU QUADRIvalent (5+ YOA) 2019-2020 (AFLURIA) 0.5 ML IM ONE (14:45)
[2019-09-01] MEDS: CEFUROXIME INJECTION 750 MG in WATER (STERILE) FOR INJECTION 10 ML IV SCH (15:08)
--- NOTE | 2019-09-01 15:40 | NUR ---
CM/SS. Respond to referral, visited with patient and her spouse, Omid Torres. Explored resources in their service area since they reside in [place], [place]. [facility]: Patient requested agency through [facility]. Spoke with Daiana there to confirm they can provide for patient any day requested through the weekend relative to discharge. Faxed initial referral, will followup Friday in anticipation of finalized orders unless patient condition warrants extended stay. DME: Patient has FWW with her in hospital room. Spouse attentive, patient indicates he is helpful for her as necessary. She had back surgery in May and has been recuperating from that so they have already been in an adjusted role pertaining to home responsibilities. No other needs identified.
[2019-09-01] MEDS ORDERED: POLYETHYLENE GLYCOL 17 GM (MIRALAX) PACK PO PRN (16:15)
[2019-09-01] MEDS ORDERED: ALPRAZolam 0.25 MG (XANAX) TAB PO PRN (16:15)
[2019-09-01] MEDS ORDERED: HYOSCYAMINE 0.125 MG (LEVSIN) TAB PO PRN (16:15)
[2019-09-01] MEDS ORDERED: BISACODYL 5 MG (DULCOLAX) TABLET PO PRN (16:15)
[2019-09-01] MEDS ORDERED: MELATONIN 3 MG TABLET PO PRN (16:15)
--- NOTE | 2019-09-01 16:21 | Consultation - Hospitalist ---
HPI History of Present Illness: HPI/Chief Complaint Nabila Torres is a 78yoF with PMH HTN, hypothyroidism, recurrent UTIs, osteoarthritis, who presented for a scheduled total knee arthroplasty. She tolerated the procedure well and is doing well post-operatively. She reports that she has been feeling well in her normal state of health. She denies any fevers and chills. She denies chest pain and dyspnea. She denies abdominal pain, nausea, vomiting, diarrhea, and constipation. Source: patient Exam Limitations: no limitations Date Seen 09/01/19 Attending Physician Chadd Albrecht MD PCP Yariel Mendoza MD Referring Physician Date of Admission Sep 01, 2019 at 05:54 Home Medications & Allergies Home Medications Reviewed patient Home Medication Reconciliation performed by pharmacy medication reconciliations payroll technician and/or nursing. Patients Allergies have been reviewed. Allergies Allergies Coded Allergies Envtliy-Sdt-Qmv Reductase Inhibitor (Verified Allergy, Intermediate, WEAKNESS, 08/19/19) aspirin (Unverified Allergy, Mild, HIVES, 08/19/19) methocarbamol (Unverified Allergy, Mild, HIVES, 08/19/19) Past Vyfvmgl-Wxnmxc-Vawckf Hx Past Med/Social Hx: Reviewed Nursing Past Med/Soc Hx Patient Social History Alcohol Use: Denies Use Recreational Drug Use: No Smoking Status: Never a Smoker 2nd Hand Smoke Exposure: No Physical Abuse Screen: No Sexual Abuse: No Recent Foreign Travel: No Contact w/other who traveled: No Recent Hopitalizations: Yes (BACK SURGERY MAY 2019) Recent Infectious Disease Expo: No Immunizations Up To Date Date of Pneumonia Vaccine: Sep 08, 2017 Date of Influenza Vaccine: Aug 18, 2018 Seasonal Allergies Seasonal Allergies: Yes Past Medical History Surgeries: Bladder Surgery, Hysterectomy, Thyroidectomy Currently Using CPAP: No Currently Using BIPAP: No Cardiac: Angina, Atrial Fibrillation, Coronary Artery Disease Reproductive: No Sexually Transmitted Disease: No HIV/AIDS: No Genitourinary: Kidney Stones, UTI-Chronic Gastrointestinal: Chronic Diarrhea Musculoskeletal: Arthritis Endocrine: Hypothyroidsim Loss of Vision: Denies Hearing Impairment: Denies Psychosocial: Anxiety History of Blood Disorders: No Adverse Reaction to Blood Key: No (HAS HAD BLOOD WITH NO REACTION) Family History Cardiovascular disease G8 SISTER Diabetes mellitus 19 FATHER G8 BROTHER G8 SISTER Hypertension 19 FATHER G8 SISTER Myocardial infarction 19 FATHER G8 BROTHER Diabetes, Hypertension Review of Systems Constitutional: no symptoms reported, see HPI Physical Exam Physical Exam Vital Signs Vital Signs - First Documented 09/01/19 06:25 Temp 35.6 Pulse 60 Resp 18 B/P (MAP) 145/90 Pulse Ox 95 O2 Delivery Room Air Capillary Refill : Less Than 3 Seconds Height, Weight, BMI Height: 5'2.00" Weight: 172lbs. 0.0oz. [id number]; 35.57 BMI Method: General Appearance: No Apparent Distress, WD/WN HEENT: PERRL/EOMI, Pharynx Normal Neck: Normal Inspection, Supple Respiratory: Lungs Clear, Normal Breath Sounds, No Respiratory Distress Cardiovascular: Regular Rate, Rhythm, No Edema, No Murmur Gastrointestinal: Normal Bowel Sounds, Non Tender, Soft Extremity: No Pedal Edema Neurologic/Psychiatric: Alert, Oriented x3, No Motor/Sensory Deficits, Normal Mood/Affect Skin: Normal Color, Warm/Dry Lymphatic: No Adenopathy Results Results/Procedures Labs Patient resulted labs reviewed. Assessment/Plan Assessment and Plan Assess & Plan/Chief Complaint Osteoarthritis s/p total knee arthroplasty -Pain regimen per primary -Incentive spirometer ordered -Bowel regimen in place -PT/OT consulted -DVT prophylaxis ordered HTN -Continue lisinopril, diltiazem, and metoprolol -Hold HCTZ AFib -Hold Eliquis -Continue diltiazem and metoprolol Hypothyroidism -Continue levothyroxine Bladder spasms -Continue hyoscyamine as needed Insomnia -Continue melatonin Diagnosis/Problems Diagnosis/Problems (1) Total knee replacement status Status: Acute (2) Essential (primary) hypertension Status: Chronic (3) Hypothyroidism Status: Chronic (4) Atrial fibrillation Status: Chronic (5) Osteoarthritis of right knee Status: Chronic (6) Osteoarthritis of left knee Status: Chronic Clinical Quality Measures DVT/VTE Risk/Contraindication: Risk Factor Score Per Nursin RFS Level Per Nursing on Admit: 4+=Very High LIMA YAÑEZ MD Sep 01, 2019 16:21
[2019-09-01] MEDS: oxyCODONE/APAP 5/325MG (PERCOCET 5) TABLET PO PRN ×2 (17:20→21:20)
[2019-09-01] MEDS ORDERED: SENNA W/DOCUSATE (SENOKOT S) TABLET PO SCH (21:00)
[2019-09-01] MEDS: AMITRIPTYLINE 10 MG (ELAVIL) TAB PO SCH (21:19)
[2019-09-01] MEDS: DOCUSATE SODIUM 100 MG (COLACE) CAP PO SCH (21:19)
[2019-09-01] MEDS: ACETAMINOPHEN 500 MG TAB (TYLENOL) PO SCH (21:20)
[2019-09-02] MEDS: CEFUROXIME INJECTION 750 MG in WATER (STERILE) FOR INJECTION 10 ML IV SCH (00:09)
[2019-09-02 04:29] VITALS: BP 138/72
[2019-09-02] MEDS: oxyCODONE/APAP 5/325MG (PERCOCET 5) TABLET PO PRN ×5 (05:42→18:45)
[2019-09-02] MEDS: MULTIVIT W/MINERALS TAB (THERAGRAN M) PO SCH (05:42)
[2019-09-02] MEDS ORDERED: LEVOTHYROXINE 100 MCG (LEVOTHROID) TAB PO SCH (06:30)
[2019-09-02 06:51] LABS: HEMOGLOBIN 10.1 G/DL (11.5-16.0)
[2019-09-02 07:47] VITALS: BP 147/91
--- NOTE | 2019-09-02 07:51 | Progress Note ---
Standard Progress Note Progress Notes/Assess & Plan Date Seen by a Provider: Sep 02, 2019 Time Seen by a Provider: 07:50 Progress/Assessment & Plan post op check no complaints radiographs--HW well positioned without fracture LLE-- 2plus DP pulse with brisk cap refill. intact sensation throughout. intact DF and PF of toes and ankle s/p LTKA mobilize as able Final Diagnosis no complaints Vital Signs Date Time Temp Pulse Resp B/P (MAP) Pulse Ox O2 Delivery O2 Flow Rate FiO2 09/02/19 07:47 36.0 96 18 147/91 (109) 94 Room Air 09/02/19 04:29 36.2 85 18 138/72 (94) 93 Room Air 09/01/19 23:59 36.0 102 20 127/80 (96) 91 Room Air 09/01/19 23:58 Nasal Cannula 1.50 09/01/19 20:50 94 Room Air 1.50 09/01/19 20:46 94 Room Air 09/01/19 19:41 36.2 84 16 129/67 (87) 95 Room Air 09/01/19 16:00 36.2 82 16 137/81 (99) 97 Room Air 09/01/19 12:00 36.1 65 16 166/99 (121) 95 Nasal Cannula 3.00 09/01/19 10:16 36.2 98 16 166/99 (121) 98 Nasal Cannula 3.00 09/01/19 10:15 37.1 14 156/90 (112) 98 Nasal Cannula 3 09/01/19 10:15 Nasal Cannula 3 09/01/19 10:10 14 156/90 (112) 97 Nasal Cannula 3 09/01/19 10:00 Nasal Cannula 3 09/01/19 10:00 12 156/88 (110) 97 Nasal Cannula 3 09/01/19 09:50 16 159/92 (114) 98 OxyMask 3 09/01/19 09:45 OxyMask 3 09/01/19 09:40 14 161/106 (124) 98 OxyMask 3 09/01/19 09:30 14 158/103 (121) 98 OxyMask 3 09/01/19 09:30 OxyMask 3 09/01/19 09:20 17 165/97 (119) 98 OxyMask 6 09/01/19 09:15 OxyMask 6 09/01/19 09:10 18 166/98 (120) 97 OxyMask 6 09/01/19 09:00 18 166/94 (118) 95 OxyMask 6 09/01/19 09:00 OxyMask 6 09/01/19 08:58 36.3 24 163/93 (116) 95 OxyMask 6 09/01/19 08:58 OxyMask 6 I & O 09/02/19 07:00 Intake Total 2845 ml Output Total 500 ml Balance 2345 ml Laboratory Tests Test 09/02/19 06:12 Range/Units Hemoglobin 10.1 L 11.5-16.0 G/DL Hematocrit 31 L 35-52 % LLE--dressing intact. NVI distally. no calf tenderness s/p LTKA progressing well continue PT/OT ALBERTO LOERA MD Sep 02, 2019 07:51
[2019-09-02] MEDS: DILTIAZEM 180 MG (CARDIZEM CD) CAP PO SCH (08:12)
[2019-09-02] MEDS: ENOXAPARIN 30 MG/0.3 ML (LOVENOX) SYR SC SCH ×2 (08:12→20:01)
[2019-09-02] MEDS: DOCUSATE SODIUM 100 MG (COLACE) CAP PO SCH ×2 (08:12→20:01)
[2019-09-02] MEDS: SENNA W/DOCUSATE (SENOKOT S) TABLET PO SCH ×2 (08:13→20:01)
[2019-09-02] MEDS: ACETAMINOPHEN 500 MG TAB (TYLENOL) PO SCH ×3 (08:13→20:01)
[2019-09-02] MEDS: lisINopril 20 MG (PRINIVIL) TABLET PO SCH (08:13)
[2019-09-02] MEDS: meTOproloL SUCCINATE 50 MG (TOPROL XL) TAB PO SCH (08:13)
[2019-09-02] MEDS: NS IV 1000 ML 1,000 ML IV SCH ×2 (08:19→18:44)
--- NOTE | 2019-09-02 08:46 | Anesthesia-General Post-Op ---
General Patient Condition Mental Status/LOC: Same as Preop Cardiovascular: Satisfactory Nausea/Vomiting: Absent Respiratory: Satisfactory Pain: Controlled Complications: Absent Post Op Complications Complications None Follow Up Care/Instructions Patient Instructions None needed. Anesthesia/Patient Condition Patient Condition Patient is doing well, no complaints, stable vital signs, no apparent adverse anesthesia problems. No complications reported per nursing. DAYAN PONCE CRNA Sep 02, 2019 08:46
[2019-09-02] MEDS ORDERED: NON-FORMULARY MEDICATION 1 EA EA (Diltiazem HCl (Cartia Xt) 180 MG) PO SCH (09:00)
--- NOTE | 2019-09-02 09:08 | Occupational Therapy Eval ---
OT Evaluation-General/PLF Medical Diagnosis Admission Date Sep 01, 2019 at 05:54 Medical Diagnosis: left TKA Onset Date: Sep 01, 2019 Therapy Diagnosis Therapy Diagnosis: decreased functional mobility and ADLs Height/Weight Height (Feet): 5 Height (Inches): 2.00 Weight (Pounds): 172 Weight (Ounces): 0.0 Precautions Precautions/Isolations: Fall Prevention, Standard Precautions, Pressure Ulcer Weight Bear Status Weight Bearing Restriction: Weight Bearing/Tolerated Referral Physician: Bob Dye APRN Referral Reason: Activity Tolerance, Self Care, Evaluation/Treatment, Strengthening/ROM Medical History Pertinent Medical History: Atrial Fib, Arthritis, HTN, Hypothroidism, OA Additional Medical History PMHx: a fib, OA, HTN, hypothyroidism Previous back surgery and RTKA Current History TKA L Reviewed History: Yes Social History Home: Single Level Current Living Status: Spouse Entry Into Home: Level Entry Steps Into Home: 0 Steps Inside Home: 0 ADL-Prior Level of Function Therapy Quality Codes: 6 Independent with activity with or without an assistive device 5 Patient requires set up or clean up by helper. Patient completes activity by themselves 4 Supervision or touching assist (CGA). [place] provide cues , steadying assist 3 The helper provides less than half the effort to complete the activity 2 The helper provides more than half the effort to complete the activity 1 Dependent. The helper does all the effort to complete an activity 7 Patient refused to complete or attempt activity 9 The patient did not perform the activity before the current illness or injury 88 Not attempted due to Medical conditions or safety concerns Self Care: Independent Functional Cognition: Independent DME/Equipment: Bath Chair, Grab Bars DME/Equipment Comments Pt has both FWW and cane, had not used recently for functional mobility. Pt has both walk in and tub shower, grab bars in walk in shower with shower chair. Grab bars near toilet. Drive Self: Yes OT Current Status Subjective Pt seen in bed, reclined supine. Pt states 3/10 pain, states she had 10/10 pain within night but has since relieved a bit. pt agreeable to OT eval. Mental Status/Objective Patient Orientation: Person, Place, Situation, Normal For Age Attachments: IV, Polar Pack Current Glasses/Contacts: Yes Hearing Aids: No Dentures/Partials: No Hand Dominance: Right Upper Extremity ROM BUE WFL Upper Extremity Coordination BUE WFL Upper Extremity Sensation BUE WFL Upper Extremity Strength BUE WFL Edema: L LE Pt educated on typical swelling patterns and importance of motion. ADL-Treatment Eating (QC): 6 Lower Body Dressing (QC): 2 On/Off Footwear (QC): 2 Other Treatments Pt states much pain when getting on/ off toilet this morning with nursing. Pt states she has completed prior R TKA, then completed back surgery to relieve compressions. Pt states she has gained much weight since she has not been as mobile. Pt bed mob SBA, sit to stand with SBA, use of FWW to ambulate to chair. Pt requires rest breaks from supine to sit and sit to stand due to vertigo. Pt states she has had slight vertigo symptoms prior to surgery. Pt denies need for polar pack/ elevation of legs at the moment. Pt left with call light in reach, all needs met. Education OT Patient Education: Correct positioning, Modified ADL techniques, Purpose of tx/functional activities, Reviewed precautions, Rehab process, Safety issues, Transfer techniques Teaching Recipient: Patient Teaching Methods: Demonstration, Discussion Response to Teaching: Verbalize Understanding, Return Demonstration OT Short Term Goals Short Term Goals Upper Body Dressing(FIM): 6 Lower Body Dressing(FIM): 4 1=Demonstrate adherence to instructed precautions during ADL tasks. 2=Patient will verbalize/demonstrate understanding of assistive devices/modifications for ADL. 3=Patient will improve strength/tolerance for activity to enable patient to perform ADL's. OT Halfway Goals Comparative Sociology Professor Goals Eating (QC): 7 Oral Hygiene (QC): 6 Shower/Bathe Self (QC): 5 Upper Body Dressing (QC): 5 Lower Body Dressing (QC): 5 On/Off Footwear (QC): 5 Toileting Hygiene (QC): 4 Toilet/Commode Transfer (QC): 5 Additional Goals: 1-Demonstrate ADL Tasks, 2-Verbalize Understanding, 3-ImproveStrength/Khris 1=Demonstrate adherence to instructed precautions during ADL tasks. 2=Patient will verbalize/demonstrate understanding of assistive devices/modifications for ADL. 3=Patient will improve strength/tolerance for activity to enable patient to perform ADL's. OT Education/Plan Problem List/Assessment Assessment: Decreased Activ Tolerance, Edema, Impaired I ADL's, Impaired Self- Care Skills Discharge Recommendations Plan/Recommendations: Continue POC Comment TBD Patient/Family Goals Return home Treatment Plan/Plan of Care Treatment,Training & Education: Yes Patient would benefit from OT for education, treatment and training to promote independence in ADL's, mobility, safety and/or upper extremity function for ADL's. Plan of Care: ADL Retraining, Caregiver Training, Concurrent Therapy, Functional Mobility, UE Funct Exercise/Act Treatment Duration: Sep 09, 2019 Frequency: 5 times per week Estimated Hrs Per Day: 1.5 hours per day Agreement: Yes Rehab Potential: Fair Time/GCodes Start Time: 08:39 Stop Time: 08:56 Total Time Billed (hr/min): 17 Billed Treatment Time 1 EVL (17) EMMANUEL JOHN OTR Sep 02, 2019 09:08
--- NOTE | 2019-09-02 10:43 | Physical Therapy Daily Note ---
PT Daily Note-Current Subjective Patient is very agreeable to participate with PT. Pain Numeric Pain Scale: 5-Moderate Pain Location: Left Location Body Site: Knee Pain Description: Acute Mental Status Patient Orientation: Normal For Age Attachments: Polar Pack, IV Transfers Therapy Quality Codes: 6 Independent with activity with or without an assistive device 5 Patient requires set up or clean up by helper. Patient completes activity by themselves 4 Supervision or touching assist (CGA). [place] provide cues , steadying assist 3 The helper provides less than half the effort to complete the activity 2 The helper provides more than half the effort to complete the activity 1 Dependent. The helper does all the effort to complete an activity 7 Patient refused to complete or attempt activity 9 The patient did not perform the activity before the current illness or injury 88 Not attempted due to Medical conditions or safety concerns Transfers (B, C, W/C): 6 Roll Left to Right (QC): 6 Sit to Lying (QC): 6 Sit to Stand (QC): 6 Chair/Wto-mp-Ftlqb Xfer(QC): 6 Bed to/from Chair: 6 Gait Training Does the Patient Walk?: Yes Gait: 6 Distance: 300' Walk 10 feet (QC): 6 Walk 50 ft with 2 Turns(QC): 6 Walk 150 ft (QC): 6 Gait Assistive Device: FWW steady, antalgic Exercises Supine Ex: Ankle pumps, Quad Set, Heel Slides, Straight leg raise Supine Reps: 12 Seated Therapy Exercises: Long arc quads Seated Reps: 15 Treatments CPM 0-66 degrees with polar pack in place after treatment Assessment Patient tolerated treatment well and is progressing with treatment plan. PT to increase activity as tolerated by patient. PT Short Term Goals Short Term Goals Time Frame: Sep 08, 2019 Gait Distance Comment: 4 Gait Assistive Device: FWW (150' with CGA) PT Plan Treatment/Plan Treatment Plan: Continue Plan of Care Treatment Plan: Bed Mobility, Education, Functional Activity Khris, Functional Strength, Gait, Safety, Therapeutic Exercise, Transfers Treatment Duration: Sep 08, 2019 Frequency: At least 5 of 7 days/Wk (IRF) Estimated Hrs Per Day: 1.5 hours per day Patient and/or Family Agrees t: Yes Time/GCodes Time In: 938 Time Out: 1002 Total Billed Treatment Time: 24 Total Billed Treatment 1 visit GT 11 min EX 13 min WHITLEY DENNY PT Sep 02, 2019 10:43
--- NOTE | 2019-09-02 11:43 | Progress Note - Hospitalist ---
Subjective HPI/CC On Admission Date Seen by Provider: Sep 02, 2019 Time Seen by Provider: 09:30 total knee arthroplasty Subjective/Events-last exam She reports improved pain in her knee today. She is up in her chair. She denies fevers and chills. She has been eating and drinking without issue. She denies abdominal pain, nausea, and vomiting. She remains constipated. She has been using her incentive spirometer. She denies dyspnea. Objective Exam Vital Signs Vital Signs Date Time Temp Pulse Resp B/P (MAP) Pulse Ox O2 Delivery O2 Flow Rate FiO2 09/02/19 07:47 36.0 96 18 147/91 (109) 94 Room Air 09/01/19 23:58 1.50 Capillary Refill : Less Than 3 Seconds General Appearance: No Apparent Distress, WD/WN HEENT: PERRL/EOMI, Pharynx Normal Neck: Normal Inspection, Supple Respiratory: Lungs Clear, Normal Breath Sounds, No Respiratory Distress Cardiovascular: Regular Rate, Rhythm, No Edema, No Murmur Gastrointestinal: Normal Bowel Sounds, Non Tender, Soft Extremity: No Pedal Edema Neurologic/Psychiatric: Alert, Oriented x3 Skin: Normal Color, Warm/Dry Results/Procedures Lab Laboratory Tests 09/02/19 06:12 Patient resulted labs reviewed. Assessment/Plan Assessment and Plan Assess & Plan/Chief Complaint Osteoarthritis s/p total knee arthroplasty -Pain regimen per primary -Incentive spirometer at bedside -Continue bowel regimen -PT/OT following -DVT prophylaxis ordered HTN -Continue lisinopril, diltiazem, and metoprolol -Hold HCTZ AFib -Holding Eliquis, resume once ok with Ortho -Continue diltiazem and metoprolol Hypothyroidism -Continue levothyroxine Bladder spasms -Continue hyoscyamine as needed Insomnia -Continue melatonin Diagnosis/Problems Diagnosis/Problems (1) Total knee replacement status Status: Acute (2) Essential (primary) hypertension Status: Chronic (3) Hypothyroidism Status: Chronic (4) Atrial fibrillation Status: Chronic (5) Osteoarthritis of right knee Status: Chronic (6) Osteoarthritis of left knee Status: Chronic Clinical Quality Measures DVT/VTE Risk/Contraindication: Risk Factor Score Per Nursin RFS Level Per Nursing on Admit: 4+=Very High LIMA YAÑEZ MD Sep 02, 2019 11:43
--- NOTE | 2019-09-02 13:42 | NUR ---
IRF Evaluation Order received to evaluate patient for the ARU. Chart reviewed and it appears patient is ambulating (300ft, FWW) and transferring with modified independence; therefore, patient does not require intensive therapies, at this time. Thank you for this referral.
--- NOTE | 2019-09-02 13:59 | Physical Therapy Daily Note ---
PT Daily Note-Current Subjective Patient agrees to PT. No c/o. Pain Numeric Pain Scale: 5-Moderate Pain Location: Left Location Body Site: Knee Pain Description: Acute Mental Status Patient Orientation: Normal For Age Attachments: Polar Pack, IV Transfers Therapy Quality Codes: 6 Independent with activity with or without an assistive device 5 Patient requires set up or clean up by helper. Patient completes activity by themselves 4 Supervision or touching assist (CGA). [place] provide cues , steadying assist 3 The helper provides less than half the effort to complete the activity 2 The helper provides more than half the effort to complete the activity 1 Dependent. The helper does all the effort to complete an activity 7 Patient refused to complete or attempt activity 9 The patient did not perform the activity before the current illness or inju ry 88 Not attempted due to Medical conditions or safety concerns Transfers (B, C, W/C): 6 Roll Left to Right (QC): 6 Sit to Lying (QC): 6 Sit to Stand (QC): 6 Chair/Xda-fi-Thswg Xfer(QC): 6 Bed to/from Chair: 6 Gait Training Does the Patient Walk?: Yes Gait: 6 Distance: 300' Walk 10 feet (QC): 6 Walk 50 ft with 2 Turns(QC): 6 Walk 150 ft (QC): 6 Gait Assistive Device: FWW steady and reciprocal Exercises Supine Ex: Ankle pumps, Quad Set, Heel Slides, Straight leg raise Supine Reps: 15 Seated Therapy Exercises: Long arc quads Seated Reps: 15 Assessment CPM 0-[address] after treatment. Patient tolerated treatment well and returned to bed. Plan dismissal in a.m. PT Short Term Goals Short Term Goals Time Frame: Sep 08, 2019 Gait Distance Comment: 4 Gait Assistive Device: FWW (150' with CGA) PT Plan Treatment/Plan Treatment Plan: Continue Plan of Care Treatment Plan: Bed Mobility, Education, Functional Activity Khris, Functional Strength, Gait, Safety, Therapeutic Exercise, Transfers Treatment Duration: Sep 08, 2019 Frequency: At least 5 of 7 days/Wk (IRF) Estimated Hrs Per Day: 1.5 hours per day Patient and/or Family Agrees t: Yes Time/GCodes Time In: 1316 Time Out: 1333 Total Billed Treatment Time: 17 Total Billed Treatment 1 visit FA 17 min WHITLEY DENNY PT Sep 02, 2019 13:59
[2019-09-02 16:01] VITALS: BP 105/67
[2019-09-02] MEDS: AMITRIPTYLINE 10 MG (ELAVIL) TAB PO SCH (20:01)
[2019-09-03 00:14] VITALS: BP 130/88
[2019-09-03] MEDS: oxyCODONE/APAP 5/325MG (PERCOCET 5) TABLET PO PRN ×3 (02:09→09:33)
--- NOTE | 2019-09-03 02:16 | DISCHARGE SUMMARY ---
DATE OF SERVICE: DIAGNOSES: 1. Left knee primary osteoarthritis. 2. Ischemic heart disease. 3. Diabetes. 4. Hypertension. PROCEDURE: Left total knee arthroplasty. SUMMARY: The patient is a 78-year-old female who underwent a left total knee arthroplasty on the day of admission. Postoperatively, she did well. At the time of discharge, her wound was clean and dry. She had no calf tenderness. Negative Homans sign. She was tolerating diet well and tolerating pain with oral pain medication. CONDITION AT DISCHARGE: Good. DISCHARGE DIET: Regular. FOLLOWUP: Followup is in three weeks. Home physical therapy has been arranged. DIET: Regular. ACTIVITIES: Weightbearing as tolerated with a walker p.r.[email or web address] Job ID: [id number] DocumentID: [id number] Dictated Date: 09/02/2019 16:59:24 Cutter Helper Date: 09/03/2019 02:15:54 Dictated By: ALBERTO LOERA MD
[2019-09-03] MEDS: MULTIVIT W/MINERALS TAB (THERAGRAN M) PO SCH (06:26)
[2019-09-03] MEDS ORDERED: LEVOTHYROXINE 125 MCG (LEVOTHROID) TABLET PO SCH (06:30)
[2019-09-03 06:43] LABS: HEMOGLOBIN 9.4 G/DL (11.5-16.0)
--- NOTE | 2019-09-03 06:57 | Progress Note ---
Standard Progress Note Progress Notes/Assess & Plan Date Seen by a Provider: Sep 03, 2019 Time Seen by a Provider: 06:56 Progress/Assessment & Plan post op check no complaints radiographs--HW well positioned without fracture LLE-- 2plus DP pulse with brisk cap refill. intact sensation throughout. intact DF and PF of toes and ankle s/p LTKA mobilize as able Final Diagnosis no complaints Vital Signs Date Time Temp Pulse Resp B/P (MAP) Pulse Ox O2 Delivery O2 Flow Rate FiO2 09/03/19 00:14 36.8 77 18 130/88 (102) 93 Room Air 09/02/19 19:59 Room Air 09/02/19 16:01 36.4 87 20 105/67 (80) 92 Room Air 09/02/19 08:00 Room Air 09/02/19 07:47 36.0 96 18 147/91 (109) 94 Room Air I & O 09/03/19 07:00 Intake Total 1240 ml Output Total 950 ml Balance 290 ml Laboratory Tests Test 09/03/19 06:10 Range/Units Hemoglobin 9.4 L 11.5-16.0 G/DL Hematocrit 29 L 35-52 % LLE--incision clean and dry. No calf tenderness. Neg Elpidio's s/p LTKA doing well DC after PT today ALBERTO LOERA MD Sep 03, 2019 06:57
--- NOTE | 2019-09-03 08:28 | NUR ---
Morphine MICROWAVE SUPERVISOR discontinued per doctor orders. 60 mL Morphine wasted with Tameka DOMINGUEZ .
[2019-09-03] MEDS: lisINopril 20 MG (PRINIVIL) TABLET PO SCH (08:50)
[2019-09-03] MEDS: meTOproloL SUCCINATE 50 MG (TOPROL XL) TAB PO SCH (08:50)
[2019-09-03] MEDS: DOCUSATE SODIUM 100 MG (COLACE) CAP PO SCH (08:50)
[2019-09-03] MEDS: SENNA W/DOCUSATE (SENOKOT S) TABLET PO SCH (08:51)
[2019-09-03] MEDS: ENOXAPARIN 30 MG/0.3 ML (LOVENOX) SYR SC SCH (08:51)
[2019-09-03] MEDS: ACETAMINOPHEN 500 MG TAB (TYLENOL) PO SCH (08:52)
[2019-09-03] MEDS: DILTIAZEM 180 MG (CARDIZEM CD) CAP PO SCH (08:52)
--- NOTE | 2019-09-03 10:06 | Physical Therapy Daily Note ---
PT Daily Note-Current Subjective Patient is very motivated with progress and will dismiss this a.m. to home with spouse and home health intervention. Pain Numeric Pain Scale: 5-Moderate Pain Location: Right Location Body Site: Knee Pain Description: Acute Mental Status Patient Orientation: Normal For Age Transfers Therapy Quality Codes: 6 Independent with activity with or without an assistive device 5 Patient requires set up or clean up by helper. Patient completes activity by themselves 4 Supervision or touching assist (CGA). [place] provide cues , steadying assist 3 The helper provides less than half the effort to complete the activity 2 The helper provides more than half the effort to complete the activity 1 Dependent. The helper does all the effort to complete an activity 7 Patient refused to complete or attempt activity 9 The patient did not perform the activity before the current illness or injury 88 Not attempted due to Medical conditions or safety concerns Roll Left to Right (QC): 6 Sit to Lying (QC): 6 Sit to Stand (QC): 6 Chair/Jww-om-Hhzis Xfer(QC): 6 Gait Training Does the Patient Walk?: Yes Distance: 250' Walk 10 feet (QC): 6 Walk 50 ft with 2 Turns(QC): 6 Walk 150 ft (QC): 6 Walking 10ft/uneven surface-QC: 6 Gait Assistive Device: FWW reciprocal pattern Exercises Supine Ex: Ankle pumps, Quad Set, Heel Slides, Straight leg raise Supine Reps: 15 Seated Therapy Exercises: Long arc quads Seated Reps: 15 Assessment Patient tolerated treatment and will continue to progress at home with HEP and home health. PT Short Term Goals Short Term Goals Time Frame: Sep 08, 2019 Gait Distance Comment: 4 Gait Assistive Device: FWW (150' with CGA) PT Plan Treatment/Plan Treatment Plan: Discontinue PT, goals met Treatment Plan: Bed Mobility, Education, Functional Activity Khris, Functional Strength, Gait, Safety, Therapeutic Exercise, Transfers Treatment Duration: Sep 08, 2019 Frequency: At least 5 of 7 days/Wk (IRF) Estimated Hrs Per Day: 1.5 hours per day Patient and/or Family Agrees t: Yes Time/GCodes Time In: 810 Time Out: 835 Total Billed Treatment Time: 25 Total Billed Treatment 1 visit EX 14 min GT 11 min WHITLEY DENNY PT Sep 03, 2019 10:06
--- NOTE | 2019-09-03 10:17 | NUR ---
CM/SS. Patient discharged today as planned. C: Finalized with [facility]. Faxed orders/instructions, spoke with Kimberly at [facility] and she confirmed all was received. They will begin services on Friday. Updated patient and Unit RN.
[2019-09-03 10:46] VITALS: BP 130/88
--- NOTE | 2019-09-03 15:03 | Progress Note - Hospitalist ---
Subjective HPI/CC On Admission Date Seen by Provider: Sep 03, 2019 Time Seen by Provider: 09:15 total knee arthroplasty Subjective/Events-last exam She is feeling well. She is sitting in her bedside chair. She has been working with physical therapy. Her pain is well controlled. She denies fevers, chills, chest pain, dyspnea, abdominal pain, nausea, and vomiting. Objective Exam Vital Signs Vital Signs Date Time Temp Pulse Resp B/P (MAP) Pulse Ox O2 Delivery O2 Flow Rate FiO2 09/03/19 10:46 36.8 77 18 130/88 93 Room Air 09/01/19 23:58 1.50 Capillary Refill : Less Than 3 Seconds General Appearance: No Apparent Distress, WD/WN Neck: Normal Inspection, Supple Respiratory: Lungs Clear, Normal Breath Sounds, No Respiratory Distress Cardiovascular: Regular Rate, Rhythm, No Edema, No Murmur Gastrointestinal: Normal Bowel Sounds, Non Tender, Soft Extremity: Non Tender, Pedal Edema, Other (wearing allison hose) Neurologic/Psychiatric: Alert, Oriented x3 Skin: Normal Color, Warm/Dry Results/Procedures Lab Laboratory Tests 09/03/19 06:10 Patient resulted labs reviewed. Assessment/Plan Assessment and Plan Assess & Plan/Chief Complaint Osteoarthritis s/p total knee arthroplasty -Pain regimen per primary -Incentive spirometer at bedside -Continue bowel regimen -PT/OT following -DVT prophylaxis ordered HTN -Continue lisinopril, diltiazem, and metoprolol -Hold HCTZ AFib -Holding Eliquis, resume once ok with Ortho -Continue diltiazem and metoprolol Hypothyroidism -Continue levothyroxine Bladder spasms -Continue hyoscyamine as needed Insomnia -Continue melatonin Diagnosis/Problems Diagnosis/Problems (1) Total knee replacement status Status: Acute (2) Essential (primary) hypertension Status: Chronic (3) Hypothyroidism Status: Chronic (4) Atrial fibrillation Status: Chronic (5) Osteoarthritis of right knee Status: Chronic (6) Osteoarthritis of left knee Status: Chronic Clinical Quality Measures DVT/VTE Risk/Contraindication: Risk Factor Score Per Nursin RFS Level Per Nursing on Admit: 4+=Very High LIMA YAÑEZ MD Sep 03, 2019 15:03
== END 2019-09-03 10:48 | disposition home health service (06) | DRG 470 ==
LOC: 4TH 05:54 → SURG 05:55 → 4TH 10:10
PROVIDERS: ADMIT Orthopaedic Surgery; ATTEND Orthopaedic Surgery
PROC: 0SRD0J9 Replacement of Left Knee Joint with Synthetic Substitute, Cemented, Open Approach (ICD-10-PCS; principal; 2019-09-01 07:22)
DX: M17.12 Unilateral primary osteoarthritis, left knee (principal); E78.5 Hyperlipidemia, unspecified; I12.9 Hypertensive chronic kidney disease with stage 1 through stage 4 chronic kidney disease, or unspecified chronic kidney disease; E03.9 Hypothyroidism, unspecified; I48.91 Unspecified atrial fibrillation; Z90.710 Acquired absence of both cervix and uterus; Z96.651 Presence of right artificial knee joint; Z95.5 Presence of coronary angioplasty implant and graft; I34.0 Nonrheumatic mitral (valve) insufficiency; I25.10 Atherosclerotic heart disease of native coronary artery without angina pectoris; Z87.442 Personal history of urinary calculi; F41.9 Anxiety disorder, unspecified; G47.00 Insomnia, unspecified; N32.89 Other specified disorders of bladder; N18.9 Chronic kidney disease, unspecified; E11.22 Type 2 diabetes mellitus with diabetic chronic kidney disease; I25.9 Chronic ischemic heart disease, unspecified
CPT/HCPCS: 36415; 73560; 85014; 85018; 86850; 86900; 86901; 94664

== ENCOUNTER → 2020-01-03 | Outpatient (CLI) | payer MEDICARE ==
[~2020-01-03] MED LIST changes: -ACET-2469 PO; +ACET-2715 PO; +DILT-28 PO; -DILT180C90 PO; +LISI1TAB25 PO; -LISI1TAB8 PO; -METO-370 PO; +METO50TA7 PO
[2020-01-03 10:41] LABS: BILIRUBIN,TOTAL 0.7 MG/DL (0.1-1.0); CALCIUM 9.5 MG/DL (8.5-10.1); CREATININE SERUM 1.03 MG/DL (0.60-1.30); TOTAL PROTEIN 7.1 GM/DL (6.4-8.2)
[2020-01-03 15:06] LABS: CHOLESTEROL 178 MG/DL (< 200); HDL CHOLESTEROL 48 MG/DL (40-60); TRIGLYCERIDES 124 MG/DL (<150); VLDL CHOLESTEROL 25 MG/DL (5-40)
== END ==
LOC: LAB FS 08:30
PROVIDERS: ATTEND Internal Medicine Cardiovascular Disease
DX: I25.10 Atherosclerotic heart disease of native coronary artery without angina pectoris (principal); N18.9 Chronic kidney disease, unspecified; E78.2 Mixed hyperlipidemia; R00.2 Palpitations; I48.0 Paroxysmal atrial fibrillation
CPT/HCPCS: 36415; 80053; 80061

== ENCOUNTER → 2020-01-03 | Outpatient (CLI) | payer MEDICARE | LOC: LAB FS 13:53 | PROVIDERS: ATTEND Neurological Surgery | DX: M25.50 Pain in unspecified joint (principal) | CPT/HCPCS: 84550; 85652; 86038 ==

== ENCOUNTER → 2020-05-10 | Outpatient (CLI) | payer MEDICARE ==
[2020-05-10 11:34] LABS: WHITE BLOOD COUNT 6.1 10^3/uL (4.3-11.0)
[2020-05-10 11:35] LABS: HEMOGLOBIN 13.3 G/DL (11.5-16.0); MEAN PLATELET VOLUME 9.6 FL (7.4-10.4); RED CELL DISTRIBUTION WIDTH 14.5 % (10.0-14.5)
[2020-05-10 12:03] LABS: CREATININE SERUM 0.98 MG/DL (0.60-1.30)
[2020-05-10 12:04] LABS: BILIRUBIN,TOTAL 0.5 MG/DL (0.1-1.0); CALCIUM 9.3 MG/DL (8.5-10.1); TOTAL PROTEIN 7.1 GM/DL (6.4-8.2)
== END ==
LOC: LAB FS 11:01
PROVIDERS: ATTEND Pediatrics
DX: M06.9 Rheumatoid arthritis, unspecified (principal)
CPT/HCPCS: 36415; 80053; 85027

== ENCOUNTER 2020-07-04 17:57 | Emergency (ER) | payer MEDICARE ==
[~2020-07-04] VITALS: Ht 157.5 cm; Wt 87.1 kg
[2020-07-04] MEDS ORDERED: MECLIZINE 25 MG (ANTIVERT) TAB PO ONE (18:30)
--- NOTE | 2020-07-04 18:31 | ED EENT ---
History of Present Illness General Chief Complaint: Ear Problems Stated Complaint: EAR PAIN,TONGUE SWELLING Nursing Triage Note: Patient reports right ear pain, redness, and swelling since Friday, states she saw an urgent care provider yesterday and started on ciprofloxacin ear drops. Patient reports swelling has spread to jaw and tongue, also reports dizziness and nausea today. Source: patient Exam Limitations: no limitations History of Present Illness Date Seen by Provider: Jul 04, 2020 Time Seen by Provider: 18:25 Initial Comments few days of increasing pain and swelling of her right ear. Saw PCP yesterday and started on Abx ear drops. Pain and swelling have gotten worse today. No hx of previous occurrence. No precipitating event, does not wear hearing aids and is not a diabetic. Allergies and Home Medications Allergies Coded Allergies: Sbezolk-Wng-Urh Reductase Inhibitor (Verified Allergy, Intermediate, WEAKNESS, 08/19/19) aspirin (Unverified Allergy, Mild, HIVES, 08/19/19) methocarbamol (Unverified Allergy, Mild, HIVES, 08/19/19) Home Medications Alprazolam 0.25 Mg Tablet, 0.25 MG PO BID PRN for RESTLESSNESS, (Reported) Amitriptyline HCl 10 Mg Tablet, 10 MG PO HS, (Reported) Apixaban 5 Mg Tablet, 5 MG PO BID, (Reported) Ciprofloxacin HCl 500 Mg Tablet, 500 MG PO BID Prescribed by: KELLY TIMMONS on 07/04/201850 Cranberry Conc/C/Bacill Coag 1 Each Tablet, 1 TAB PO BID, (Reported) Cranberry Extract 500 Mg Tablet, 500 MG PO DAILY, (Reported) Diltiazem HCl 180 Mg Cap.er.24h, 180 MG PO DAILY, (Reported) Estradiol 0.5 Mg Tablet, 0.5 MG PO Fr, (Reported) Hyoscyamine Sulfate 0.125 Mg Tablet, 0.125-0.25 MG PO Q4H PRN for BLADDER SPASMS, (Reported) Levothyroxine Sodium 125 Mcg Tablet, 125 MCG PO MoWeFr, (Reported) ALTERNATES WITH 100MCG TABLET Levothyroxine Sodium 100 Mcg Tablet, 100 MCG PO SuTuThSa, (Reported) ALERNATES WITH 125MCG TABLET Lisinopril/Hydrochlorothiazide 1 Each Tablet, 1 TAB PO DAILY, (Reported) Meclizine HCl 25 Mg Tablet, 25 MG PO Q8H Prescribed by: KELLY TIMMONS on 07/04/20 1851 Melatonin 5 Mg Capsule, 5 MG PO HS PRN for INSOMNIA, (Reported) Metoprolol Succinate 50 Mg Tab.er.24h, 50 MG PO DAILY, (Reported) Patient Home Medication List Home Medication List Reviewed: Yes Review of Systems Review of Systems Constitutional: No dizziness, No fever, No malaise, No weakness Ears: See HPI, Dizziness, Pain; Denies Bloody Discharge, Denies Clear Discharge, Denies Purulent Discharge, Denies Previous Injury Nose: no symptoms reported Mouth: no symptoms reported Throat: no symptoms reported Respiratory: No cough, No short of breath Cardiovascular: No chest pain, No edema, No palpitations, No syncope Gastrointestinal: nausea; No vomiting Musculoskeletal: No back pain, No neck pain Skin: change in color (right ear); No lesions, No lumps, No other (swelling) Past Gertpsl-Lmbvjj-Mtgdxt Hx Past Med/Social Hx: Reviewed Nursing Past Med/Soc Hx Patient Social History Alcohol Use: Denies Use Recreational Drug Use: No Smoking Status: Never a Smoker 2nd Hand Smoke Exposure: No Recent Foreign Travel: No Contact w/Someone Who Travel: No Recent Infectious Disease Expo: No Recent Hopitalizations: Yes (BACK SURGERY MAY 2019) Physical Abuse: No Sexual Abuse: No Mistreated: No Fear: No Immunizations Up To Date Date of Pneumonia Vaccine: Sep 08, 2017 Date of Influenza Vaccine: Aug 18, 2018 Seasonal Allergies Seasonal Allergies: Yes Past Medical History Surgeries: Yes (BACK X2, INCISIONAL HERNIA, BLADDER X2, STENT, HIATAL HERNIA, HEMORRHOID,) Bladder Surgery, Hysterectomy, Thyroidectomy Respiratory: No Currently Using CPAP: No Currently Using BIPAP: No Cardiac: Yes (STENT ) Angina, Atrial Fibrillation, Coronary Artery Disease Neurological: No Reproductive Disorders: No Sexually Transmitted Disease: No HIV/AIDS: No Genitourinary: Yes Kidney Stones, UTI-Chronic Gastrointestinal: Yes Chronic Diarrhea Musculoskeletal: Yes (BILAT KNEE PAIN, HX BACK SURGERY) Arthritis Endocrine: Yes (thyroidectomy) Hypothyroidsim HEENT: Yes (READING GLASSES) Loss of Vision: Denies Hearing Impairment: Denies Cancer: No Psychosocial: Yes Anxiety Integumentary: No Blood Disorders: No Adverse Reaction/Blood Tranf: No (HAS HAD BLOOD WITH NO REACTION) Family Medical History Cardiovascular disease G8 SISTER Diabetes mellitus 19 FATHER G8 BROTHER G8 SISTER Hypertension 19 FATHER G8 SISTER Myocardial infarction 19 FATHER G8 BROTHER Diabetes, Hypertension Physical Exam Vital Signs Vital Signs - First Documented 07/04/20 18:01 Temp 37.4 Pulse 98 Resp 20 B/P (MAP) 157/92 (113) Pulse Ox 95 O2 Delivery Room Air Height, Weight, BMI Height: 5'2.00" Weight: 172lbs. 0.0oz. 78.399488er; 35.00 BMI Method: General Appearance: WD/WN, no apparent distress Eyes: bilateral eye normal inspection, bilateral eye PERRL, bilateral eye EOMI Ears: right ear swelling, right ear tenderness (moderate edema and erythema of Right ear pinna and external canal. Mild debris without purulent DC. TM clear.) Nose: normal inspection; No foreign body, No sinus tenderness Mouth/Throat: normal mouth inspection, pharynx normal; No mandibular swelling Neck: non-tender, supple; No lymphadenopathy (R), No lymphadenopathy (L) Progress/Results/Core Measures Results/Orders My Orders Orders - ROKELLY MCKEON DO Meclizine Tablet (Antivert Tablet) (07/04/20 18:30) Ed Iv/Invasive Line Start (07/04/20 18:39) Ciprofloxacin Iv 400mg/200ml (Cipro Iv S (07/04/20 18:45) Medications Given in ED Current Medications Medications Dose Ordered Sig/Bertha Route Start Time Stop Time Status Last Admin Dose Admin Ciprofloxacin/ Dextrose 200 ml @ 200 mls/hr ONCE ONCE IV 07/04/20 18:45 07/04/20 19:44 DC 07/04/20 18:57 200 MLS/HR Meclizine HCl 25 mg ONCE ONCE PO 07/04/20 18:30 07/04/20 18:31 DC 07/04/20 18:32 25 MG Vital Signs/I&O 07/04/20 07/04/20 18:01 20:07 Temp 37.4 Pulse 98 91 Resp 20 18 B/P (MAP) 157/92 (113) 164/74 Pulse Ox 95 93 O2 Delivery Room Air Room Air 07/05/20 00:00 Intake Total 200 ml Balance 200 ml Blood Pressure Mean: 113 Departure Communication (Admissions) Time/Spoke to Consulting Phy: 18:30 Called (ENT) Dr Quintanilla and he will see pt in his office tomorrow @ 1015 am to determine her course of tx. 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 Decision time for Depature: 18:51 Referrals: KAROL SAHNI MD (PCP/Family) Primary Care Physician Patient Instructions: Outer Ear Infection (DC) Add. Discharge Instructions: An appointment has been made for you to see (ENT) Dr Quintanilla in his [place] office tomorrow @ 1015am All discharge instructions reviewed with patient and/or family. Voiced understanding. Scripts Meclizine HCl (Meclizine HCl) 25 Mg Tablet 25 MG PO Q8H for Dizziness, #20 TAB Prov: KELLY TIMMONS DO 07/04/20 Ciprofloxacin HCl (Ciprofloxacin HCl) 500 Mg Tablet 500 MG PO BID, #20 TAB Prov: KELLY TIMMONS DO 07/04/20 KELLY TIMMONS DO Jul 04, 2020 18:31
--- NOTE | 2020-07-04 18:40 | NUR ---
Slow irrigation with 50 ml of tepid water with filter straw catheter at 10 ml intervals with minimal flecks of skin/flakes noted. Pt tolerated well.
[2020-07-04] MEDS ORDERED: CIPROFLOXACIN IV 400MG/200ML 200 ML IV ONE (18:45)
--- NOTE | 2020-07-04 18:45 | NUR ---
Dr Lewis placed an earwick in R ear canal and this was followed by 5 drops of pt's personal Rx supply of Cipro HCL ear gtts rec'd recently from a provider. Pt states she feels her spouse can not get her ear drops in this swollen external canal.
--- NOTE | 2020-07-04 18:50 | NUR ---
Dr Lewis advising of f/u plan with Dr Quintanilla tomorrow in [place] office.
[2020-07-04] MEDS ORDERED: CIPR500T4 PO (18:51)
[2020-07-04] MEDS ORDERED: MECL-149 PO (18:51)
--- OUTSIDE RECORDS SUMMARY | 2020-07-04 19:57 | XMS REPORT | Continuity of Care Document ---
Author Organization Unknown Address Unknown Phone Unavailable Allergies Active Description Code Type Severity Reaction Onset Reported/Identified Relationship to Patient Clinical Status Yes NKANo Known Allergies NKA Miscellaneous Allergy Mild N/A 09/28/2008 Yes aspirin [id number] Drug Allergy Unknown N/A 11/04/2016 Yes methocarbamol [id number] Neal g Allergy Unknown N/A 11/04/2016 Yes Vqigpfx-Pab-Ird Reductase Inhibitor [id number] Drug Allergy Moderate WEAKNESS 08/19/2019 Yes aspirin [id number] Drug Allergy Mild HIVES 08/19/2019 Yes methocarbamol [id number] Neal g Allergy Mild HIVES 08/19/2019 Medications There is no data. Problems Date Dx Coded Attending Type Code Diagnosis Diagnosed By 11/07/2014 KATHARINA NEW MD Ot 793.80 11/08/2014 KATHARINA NEW MD Ot 793.80 08/09/2015 Ot V76.12 11/04/2016 Ot 611.72 LUM P OR MASS IN BREAST 11/04/2016 Ot V76.12 OTH SCREEN MAMMO- MALIGN NEOPLASM OF [place] 11/04/2016 Ot 611.72 LUM P OR MASS IN BREAST 11/04/2016 Ot 793.80 UNS PEC ABNORMAL MAMMOGRAM 11/04/2016 Ot 793.89 OTH (ABN) FINDINGS ON RADIOLOGICAL EXAMI 11/04/2016 Ot V76.12 OTH SCREEN MAMMO- MALIGN NEOPLASM OF [place] 11/04/2016 Ot 787.60 FUL L INCONTINENCE OF FECES 11/04/2016 Ot V72.84 EXA M PRE- OPERATIVE NOS 11/04/2016 Ot 793.89 OTH (ABN) FINDINGS ON RADIOLOGICAL EXAMI 11/04/2016 Ot V67.9 FOLL OW-UP EXAM NOS 11/04/2016 KATHARINA NEW MD Ot V76.12 OTH SCREEN MAMMO-MALIGN NEOPLASM OF [place] 11/04/2016 VIRGEN MD, KATHARINA G Ot V76.12 OTH SCREEN MAMMO-MALIGN NEOPLASM OF [place] 11/04/2016 KATHARINA NEW MD Ot 793.80 UNSPEC ABNORMAL MAMMOGRAM 11/04/2016 KATHARINA NEW MD Ot 793.80 UNSPEC ABNORMAL MAMMOGRAM 11/04/2016 Ot V76.12 OTH SCREEN MAMMO- MALIGN NEOPLASM OF [place] 11/04/2016 YUNG PIÑA MD Ot N81.1 0 CYSTOCELE, UNSPECIFIED 11/04/2016 YUNG PIÑA MD Ot R32 UNSPECIFIED URINARY INCONTINENCE 11/04/2016 YUNG PIÑA MD Ot Z01.8 10 ENCOUNTER FOR PREPROCEDURAL CARDIOVASCUL 11/04/2016 YUNG PIÑA MD Ot Z01.8 11 ENCOUNTER FOR PREPROCEDURAL RESPIRATORY 11/04/2016 YUNG PIÑA MD Ot Z01.8 12 ENCOUNTER FOR PREPROCEDURAL LABORATORY E 11/04/2016 YUGN PIÑA MD Ot Z11.2 ENCOUNTER FOR SCREENING FOR OTHER BACTER 11/05/2016 YUNG PIÑA MD Ot N81.1 0 CYSTOCELE, UNSPECIFIED 11/05/2016 YUNG PIÑA MD Ot R32 UNSPECIFIED URINARY INCONTINENCE 11/05/2016 YUNG PIÑA MD Ot Z01.8 10 ENCOUNTER FOR PREPROCEDURAL CARDIOVASCUL 11/05/2016 YUNG PIÑA MD Ot Z01.8 11 ENCOUNTER FOR PREPROCEDURAL RESPIRATORY 11/05/2016 YUNG PIÑA MD Ot Z01.8 12 ENCOUNTER FOR PREPROCEDURAL LABORATORY E 11/05/2016 YUNG PIÑA MD Ot Z11.2 ENCOUNTER FOR SCREENING FOR OTHER BACTER 11/05/2016 YUNG PIÑA MD Ot N81.1 0 CYSTOCELE, UNSPECIFIED 11/05/2016 YUNG PIÑA MD Ot R32 UNSPECIFIED URINARY INCONTINENCE 11/05/2016 YUNG PIÑA MD Ot Z01.8 10 ENCOUNTER FOR PREPROCEDURAL CARDIOVASCUL 11/05/2016 YUNG PIÑA MD Ot Z01.8 11 ENCOUNTER FOR PREPROCEDURAL RESPIRATORY 11/05/2016 YUNG PIÑA MD Ot Z01.8 12 ENCOUNTER FOR PREPROCEDURAL LABORATORY E 11/05/2016 YUNG PIÑA MD Ot Z11.2 ENCOUNTER FOR SCREENING FOR OTHER BACTER 11/10/2016 YUNG PIÑA MD Ot N81.1 0 CYSTOCELE, UNSPECIFIED 11/10/2016 YUNG PIÑA MD Ot R32 UNSPECIFIED URINARY INCONTINENCE 11/10/2016 YUNG PIÑA MD Ot Z01.8 10 ENCOUNTER FOR PREPROCEDURAL CARDIOVASCUL 11/10/2016 YUNG PIÑA MD Ot Z01.8 11 ENCOUNTER FOR PREPROCEDURAL RESPIRATORY 11/10/2016 YUNG PIÑA MD Ot Z01.8 12 ENCOUNTER FOR PREPROCEDURAL LABORATORY E 11/10/2016 YUNG PIÑA MD Ot Z11.2 ENCOUNTER FOR SCREENING FOR OTHER BACTER 11/13/2016 YUNG PIÑA MD Ot I10 ESSENTIAL (PRIMARY) HYPERTENSION 11/13/2016 YUNG PIÑA MD Ot I25.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 11/13/2016 YUNG PIÑA MD Ot I48.9 1 UNSPECIFIED ATRIAL FIBRILLATION 11/13/2016 YUNG PIÑA MD Ot N81.1 0 CYSTOCELE, UNSPECIFIED 11/13/2016 YUNG PIÑA MD Ot R32 UNSPECIFIED URINARY INCONTINENCE 11/13/2016 YUNG PIÑA MD Ot Z79.8 99 OTHER REHAB NURSING TECH (CURRENT) DRUG THERAPY 11/14/2016 YUNG PIÑA MD Ot I10 ESSENTIAL (PRIMARY) HYPERTENSION 11/14/2016 YUNG PIÑA MD Ot I25.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 11/14/2016 YUNG PIÑA MD Ot I48.9 1 UNSPECIFIED ATRIAL FIBRILLATION 11/14/2016 YUNG PIÑA MD Ot N81.1 0 CYSTOCELE, UNSPECIFIED 11/14/2016 YUNG PIÑA MD Ot R32 UNSPECIFIED URINARY INCONTINENCE 11/14/2016 YUNG PIÑA MD Ot Z79.8 99 OTHER PRISON (CURRENT) DRUG THERAPY 04/09/2017 YUNG PIÑA MD Ot N20.0 CALCULUS OF KIDNEY 04/09/2017 YUNG PIÑA MD Ot R31.9 HEMATURIA, UNSPECIFIED 04/29/2017 WANG SINGLETON, YUNG Guevara Ot N20.0 CALCULUS OF KIDNEY 04/29/2017 WANG SINGLETON, YUNG Guevara Ot R31.9 HEMATURIA, UNSPECIFIED 05/06/2017 YUNG PIÑA MD Ot N20.0 CALCULUS OF KIDNEY 05/06/2017 YUNG PIÑA MD Ot R31.9 HEMATURIA, UNSPECIFIED 08/05/2018 VIRGEN SINGLETON, KATHARINA Garsia Ot V76.12 OTH SCREEN MAMMO-MALIGN NEOPLASM OF [place] 08/05/2018 VIRGEN SINGLETON, KATHARINA Garsia Ot V76.12 OTH SCREEN MAMMO-MALIGN NEOPLASM OF [place] 08/05/2018 VIRGEN SINGLETON, KATHARINA Garsia Ot 793.80 UNSPEC ABNORMAL MAMMOGRAM 08/05/2018 KATHARINA [...] FOR PREPROCEDURAL LABORATORY E 08/06/2018 ALBERTO LOERA MD, Ot Z11.2 ENCOUNTER FOR SCREENING FOR OTHER BACTER 08/12/2018 ALBERTO LOERA MD Ot E03.9 HYPOTHYROIDISM, UNSPECIFIED 08/12/2018 ALBERTO LOERA MD Ot E78.5 HYPERLIPIDEMIA, UNSPECIFIED 08/12/2018 ALBERTO LOERA MD Ot I12.9 HYPERTENSIVE CHRONIC KIDNEY DISEASE W ST 08/12/2018 ALBERTO LOERA MD Ot I25.10 ATHSCL HEART DISEASE OF [place] CORONARY 08/12/2018 ALBERTO LOERA MD Ot I34.0 NONRHEUMATIC MITRAL (VALVE) INSUFFICIENC 08/12/2018 ALBERTO LOERA MD, Ot I48.91 UNSPECIFIED ATRIAL FIBRILLATION 08/12/2018 ALBERTO LOERA MD Ot M17.11 UNILATERAL PRIMARY OSTEOARTHRITIS, RIGHT 08/12/2018 ALBERTO OLERA MD Ot N18.3 CHRONIC KIDNEY DISEASE, STAGE 3 (MODERAT 08/12/2018 ALBERTO LOERA MD, Ot Z53.09 PROC/TRTMT NOT CARRIED OUT BECAUSE OF CO 08/12/2018 ALBERTO LOERA MD Ot Z79.01 REHAB NURSING TECH (CURRENT) USE OF ANTICOAGULANT 08/20/2018 ALBERTO LOERA MD Ot E03.9 HYPOTHYROIDISM, UNSPECIFIED 08/20/2018 ALBERTO LOERA MD Ot E78.5 HYPERLIPIDEMIA, UNSPECIFIED 08/20/2018 ALBERTO LOERA MD Ot I12.9 HYPERTENSIVE CHRONIC KIDNEY DISEASE W ST 08/20/2018 ALBERTO LOREA MD Ot I25.10 ATHSCL HEART DISEASE OF [place] CORONARY 08/20/2018 ALBERTO LOERA MD Ot I34.0 NONRHEUMATIC MITRAL (VALVE) INSUFFICIENC 08/20/2018 ALBERTO LOERA MD Ot I48.91 UNSPECIFIED ATRIAL FIBRILLATION 08/20/2018 ALBERTO LOERA MD Ot M17.11 UNILATERAL PRIMARY OSTEOARTHRITIS, RIGHT 08/20/2018 ALBERTO LOERA MD Ot N18.3 CHRONIC KIDNEY DISEASE, STAGE 3 (MODERAT 08/20/2018 ALBERTO LOERA MD Ot Z53.09 PROC/TRTMT NOT CARRIED OUT BECAUSE OF CO 08/20/2018 ALBERTO LOERA MD, Ot Z79.01 PRISON (CURRENT) USE OF ANTICOAGULANT 08/21/2018 ALBERTO LOERA MD Ot E03.9 HYPOTHYROIDISM, UNSPECIFIED 08/21/2018 ALBERTO LOERA MD, Ot E78.5 HYPERLIPIDEMIA, UNSPECIFIED 08/21/2018 ALBERTO LOERA MD, Ot I12.9 HYPERTENSIVE CHRONIC KIDNEY DISEASE W ST 08/21/2018 ALBERTO LOERA MD, Ot I25.10 ATHSCL HEART DISEASE OF [place] CORONARY 08/21/2018 ALBERTO LOERA MD, Ot I34.0 NONRHEUMATIC MITRAL (VALVE) INSUFFICIENC 08/21/2018 ALBERTO LOERA MD, Ot I48.91 UNSPECIFIED ATRIAL FIBRILLATION 08/21/2018 ALBERTO LOERA MD, Ot M17.11 UNILATERAL PRIMARY OSTEOARTHRITIS, RIGHT 08/21/2018 ALBERTO LOERA MD, Ot N18.3 CHRONIC KIDNEY DISEASE, STAGE 3 (MODERAT 08/21/2018 ALBERTO LOERA MD, Ot Z53.09 PROC/TRTMT NOT CARRIED OUT BECAUSE OF CO 08/21/2018 ALBERTO LOERA MD, Ot Z79.01 REHAB NURSING TECH (CURRENT) USE OF ANTICOAGULANT 08/22/2018 ALBERTO LOERA MD, Ot E78.5 HYPERLIPIDEMIA, UNSPECIFIED 08/22/2018 ALBERTO LOERA MD, Ot E89.0 POSTPROCEDURAL HYPOTHYROIDISM 08/22/2018 ALBERTO LOERA MD Ot I1 0 ESSENTIAL (PRIMARY) HYPERTENSION 08/22/2018 ALBERTO LOERA MD, Ot I48.1 PERSISTENT ATRIAL FIBRILLATION 08/22/2018 ALBERTO LOERA MD, Ot I48.91 UNSPECIFIED ATRIAL FIBRILLATION 08/22/2018 ALBERTO LOERA MD, Ot J30.2 OTHER SEASONAL ALLERGIC RHINITIS 08/22/2018 ALBERTO LOERA MD, Ot M17.11 UNILATERAL PRIMARY OSTEOARTHRITIS, RIGHT 08/22/2018 ALBERTO LOERA MD, Ot M54.9 DORSALGIA, UNSPECIFIED 08/22/2018 ALBERTO LOERA MD, Ot Z79.01 REHAB NURSING TECH (CURRENT) USE OF ANTICOAGULANT 08/22/2018 ALBERTO LOERA MD Ot Z87.440 PERSONAL HISTORY OF URINARY (TRACT) INFE 08/22/2018 ALBERTO LOERA MD Ot Z95.5 PRESENCE OF CORONARY ANGIOPLASTY IMPLANT 11/17/2018 VIRGEN SINGLETON, KATHARINA Garsia Ot V76.12 OTH SCREEN MAMMO-MALIGN NEOPLASM OF [place] 11/17/2018 VIRGEN SINGLETON, KATHARINA Garsia Ot V76.12 OTH SCREEN MAMMO-MALIGN NEOPLASM OF [place] 11/17/2018 KATHARINA NEW MD Ot 793.80 UNSPEC ABNORMAL MAMMOGRAM 11/17/2018 VIRGEN SINGLETON, KATHARINA Garsia Ot 793.80 UNSPEC ABNORMAL MAMMOGRAM 11/17/2018 Ot V76.12 OTH SCREEN MAMMO- MALIGN NEOPLASM OF [place] 11/17/2018 WANG SINGLETON, YUNG Guevara Ot N20.0 CALCULUS OF KIDNEY 11/17/2018 WANG SINGLETON, YUNG Guevara Ot R31.9 HEMATURIA, UNSPECIFIED 11/19/2018 ALBERTO LOERA [...] INTERVERTEBRAL DISC DISORDERS W RADICULO 12/17/2018 ALBERTO LOEAR MD Ot M46.86 OTHER SPECIFIED INFLAMMATORY SPONDYLOPAT 12/17/2018 ALBERTO LOERA MD Ot M47.26 OTHER SPONDYLOSIS WITH RADICULOPATHY, EVIE 12/17/2018 ALBERTO LOERA MD Ot M48.061 SPINAL STENOSIS, LUMBAR REGION WITHOUT N 12/17/2018 ALBERTO LOERA MD Ot M51.16 INTERVERTEBRAL DISC DISORDERS W RADICULO 05/05/2019 ONEIL DIAZ MD Ot E03. 9 HYPOTHYROIDISM, UNSPECIFIED 05/05/2019 ONEIL DIAZ MD Ot E78. 2 MIXED HYPERLIPIDEMIA 05/05/2019 ONEIL DIAZ MD Ot I12. 9 HYPERTENSIVE CHRONIC KIDNEY DISEASE W ST 05/05/2019 ONEIL DIAZ MD Ot I25. 10 ATHSCL HEART DISEASE OF [place] CORONARY 05/05/2019 ONEIL DIAZ MD Ot I34. 0 NONRHEUMATIC MITRAL (VALVE) INSUFFICIENC 05/05/2019 ONEIL DIAZ MD Ot I48. 0 PAROXYSMAL ATRIAL FIBRILLATION 05/05/2019 ONEIL DIAZ MD Ot I65. 23 OCCLUSION AND STENOSIS OF [place] 05/05/2019 ONEIL DIAZ MD Ot M19. 91 PRIMARY OSTEOARTHRITIS, UNSPECIFIED SITE 05/05/2019 ONEIL DIAZ MD Ot N18. 9 CHRONIC KIDNEY DISEASE, UNSPECIFIED 05/05/2019 ONEIL DIAZ MD Ot R00. 2 PALPITATIONS 05/05/2019 ONEIL DIAZ MD Ot R07. 9 CHEST PAIN, UNSPECIFIED 05/05/2019 ONEIL DIAZ MD Ot Z79. 01 PRISON (CURRENT) USE OF ANTICOAGULANT 05/05/2019 ONEIL DIAZ MD Ot Z79.899 OTHER REHAB NURSING TECH (CURRENT) DRUG THERAPY 05/05/2019 ONEIL DIAZ MD Ot Z96.651 PRESENCE OF RIGHT ARTIFICIAL KNEE JOINT 05/10/2019 ONEIL DIAZ MD Ot E03. 9 HYPOTHYROIDISM, UNSPECIFIED 05/10/2019 ONEIL DIAZ MD Ot E78. 2 MIXED HYPERLIPIDEMIA 05/10/2019 ONEIL DIAZ MD Ot I12. 9 HYPERTENSIVE CHRONIC KIDNEY DISEASE W ST 05/10/2019 ONEIL DIAZ MD Ot I25. 10 ATHSCL HEART DISEASE OF [place] CORONARY 05/10/2019 ONEIL DIAZ MD Ot I34. 0 NONRHEUMATIC MITRAL (VALVE) INSUFFICIENC 05/10/2019 ONEIL DIAZ MD Ot I48. 0 PAROXYSMAL ATRIAL FIBRILLATION 05/10/2019 ONEIL DIAZ MD Ot I65. 23 OCCLUSION AND STENOSIS OF [place] 05/10/2019 ONEIL DIAZ MD Ot M19. 91 PRIMARY OSTEOARTHRITIS, UNSPECIFIED SITE 05/10/2019 ONEIL DIAZ MD, Ot N18. 9 CHRONIC KIDNEY DISEASE, UNSPECIFIED 05/10/2019 ONEIL DIAZ MD Ot R00. 2 PALPITATIONS 05/10/2019 ONEIL DIAZ MD, Ot R07. 9 CHEST PAIN, UNSPECIFIED 05/10/2019 ONEIL DIAZ MD, Ot Z79. 01 REHAB NURSING TECH (CURRENT) USE OF ANTICOAGULANT 05/10/2019 ONEIL DIAZ MD, Ot Z79.899 OTHER REHAB NURSING TECH (CURRENT) DRUG THERAPY 05/10/2019 ONEIL DIAZ MD, Ot Z96.651 PRESENCE OF RIGHT ARTIFICIAL KNEE JOINT 06/29/2019 KAROL SAHNI MD Ot I08.3 COMB RHEUMATIC DISORD OF MITRAL, AORTIC 06/29/2019 KAROL SAHNI MD, Ot I25.10 ATHSCL HEART DISEASE OF [place] CORONARY 07/16/2019 KAROL SAHNI MD Ot I08.3 COMB RHEUMATIC DISORD OF MITRAL, AORTIC 07/16/2019 KAROL SAHNI MD Ot I25.10 ATHSCL HEART DISEASE OF [place] CORONARY 07/21/2019 KAROL SAHNI MD Ot I08.3 COMB RHEUMATIC DISORD OF MITRAL, AORTIC 07/21/2019 KAROL SAHNI MD Ot I25.10 ATHSCL HEART DISEASE OF [place] CORONARY 08/19/2019 ALBERTO LOERA MD Ot Z01.812 ENCOUNTER FOR PREPROCEDURAL LABORATORY E 08/19/2019 ALBERTO LOERA MD Ot Z01.812 ENCOUNTER FOR PREPROCEDURAL LABORATORY E 08/19/2019 ALBERTO LOERA MD Ot M17.12 UNILATERAL PRIMARY OSTEOARTHRITIS, LEFT 08/19/2019 ALBERTO LOERA MD Ot Z01.818 ENCOUNTER FOR OTHER PREPROCEDURAL EXAMIN 08/23/2019 ALBERTO LOERA MD Ot M17.12 UNILATERAL PRIMARY OSTEOARTHRITIS, LEFT 08/23/2019 ALBERTO LOERA MD Ot Z01.818 ENCOUNTER FOR OTHER PREPROCEDURAL EXAMIN 08/25/2019 ALBERTO LOERA MD Ot M17.12 UNILATERAL PRIMARY OSTEOARTHRITIS, LEFT 08/25/2019 ALBERTO LOERA MD Ot Z01.818 ENCOUNTER FOR OTHER PREPROCEDURAL EXAMIN 09/03/2019 ALBERTO LOERA MD Ot E03.9 HYPOTHYROIDISM, UNSPECIFIED 09/03/2019 ALBERTO LOERA MD, Ot 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 09/03/2019 ALBERTO LOERA MD, Ot E78.5 HYPERLIPIDEMIA, UNSPECIFIED 09/03/2019 ALBERTO LOERA MD, Ot F41.9 ANXIETY DISORDER, UNSPECIFIED 09/03/2019 ALBERTO LOERA MD, Ot G47.00 INSOMNIA, UNSPECIFIED 09/03/2019 ALBERTO LOERA MD Ot I12.9 HYPERTENSIVE CHRONIC KIDNEY DISEASE W ST 09/03/2019 ALBERTO LOERA MD, Ot I25.10 ATHSCL HEART DISEASE OF [place] CORONARY 09/03/2019 ALBERTO LOERA MD, Ot I25.9 CHRONIC ISCHEMIC HEART DISEASE, UNSPECIF 09/03/2019 ALBERTO LOERA MD, Ot I34.0 NONRHEUMATIC MITRAL (VALVE) INSUFFICIENC 09/03/2019 ALBERTO LOERA MD, Ot I48.91 UNSPECIFIED ATRIAL FIBRILLATION 09/03/2019 ALBERTO LOERA MD Ot M17.12 UNILATERAL PRIMARY OSTEOARTHRITIS, LEFT 09/03/2019 ALBERTO LOERA MD, Ot N18.9 CHRONIC KIDNEY DISEASE, UNSPECIFIED 09/03/2019 ALBERTO LOERA MD, Ot N32.89 OTHER SPECIFIED DISORDERS OF BLADDER 09/03/2019 ALBERTO LOERA MD, Ot Z87.442 PERSONAL HISTORY OF URINARY CALCULI 09/03/2019 ALBERTO LOERA MD Ot Z90.710 ACQUIRED ABSENCE OF BOTH CERVIX AND UTER 09/03/2019 ALBERTO LOERA MD Ot Z95.5 PRESENCE OF CORONARY ANGIOPLASTY IMPLANT 09/03/2019 ALBERTO LOERA MD, Ot Z96.651 PRESENCE OF RIGHT ARTIFICIAL KNEE JOINT 01/04/2020 VERO SINGLETON, MERLINE A Ot M25.50 PAIN IN UNSPECIFIED JOINT 01/09/2020 ONEIL DIAZ MD Ot E78. 2 MIXED HYPERLIPIDEMIA 01/09/2020 ONEIL DIAZ MD, Ot I25. 10 ATHSCL HEART DISEASE OF [place] CORONARY 01/09/2020 ONEIL DIAZ MD Ot I48. 0 PAROXYSMAL ATRIAL FIBRILLATION 01/09/2020 ONEIL DIAZ MD Ot N18. 9 CHRONIC KIDNEY DISEASE, UNSPECIFIED 01/09/2020 ONEIL DIAZ MD Ot R00. 2 PALPITATIONS 01/25/2020 EMILY MD, BASHAR J Ot E78. 2 MIXED HYPERLIPIDEMIA 01/25/2020 ONEIL DIAZ MD, Ot I25. 10 ATHSCL HEART DISEASE OF [place] CORONARY 01/25/2020 ONEIL DIAZ MD, Ot I48. 0 PAROXYSMAL ATRIAL FIBRILLATION 01/25/2020 ONEIL DIAZ MD, Ot N18. 9 CHRONIC KIDNEY DISEASE, UNSPECIFIED 01/25/2020 ONEIL DIAZ MD Ot R00. 2 PALPITATIONS 06/06/2020 KAROL SAHNI MD, Ot M06.9 RHEUMATOID ARTHRITIS, UNSPECIFIED Procedures Code Description Performed By Per formed On [id number] RE PLACE OF R KNEE JT WITH SYNTH SUB, KIERAN 08/19/[id number] OF L KNEE JT WITH SYNTH SUB, [facility] [place] 09/01/2019 Results Test Result Range Complete blood count (CBC) with automate d white blood cell (WBC) differential - 11/04/16 15:20 Blood leukocytes automated count (number/volume) 7.0 10*3/uL 4.3-11.0 Blood erythrocytes automated count (number/volume) 4.00 10*6/uL 4.35-5.85 Venous blood hemoglobin measurement (mass/volume) 12.4 g/dL 11.5-16.0 Blood hematocrit (volume fraction) 39 % 35-52 Automated erythrocyte mean corpuscular volume 97 [ foz_us] 80-99 Automated erythrocyte mean corpuscular h emoglobin (mass per erythrocyte) 31 pg 25-34 Automated erythrocyte mean corpuscular h emoglobin concentration measurement (mass/volume) 32 g/dL 32-36 Automated erythrocyte distribution width ratio 13. 5 % 10.0- 14.5 Automated blood platelet count [...] 10*3 1.0-4.0 Blood monocytes automated count (number/volume) 0. 6 10*3 0.0-1.0 Automated eosinophil count 0.1 10*3/uL 0 .0-0.3 Automated blood basophil count (count/volume) 0.0 10*3/uL 0.0-0.1 Comprehensive metabolic panel - 11/04/16 15:20 Serum or plasma sodium measurement (moles/volume) 144 mmol/L 135-145 Serum or plasma potassium measurement (moles/volume) 4.3 mmol/L 3.6-5.0 Serum or plasma chloride measurement (moles/volume) 112 mmol/L 98-107 Carbon dioxide 23 mmol/L 21-32 Serum or plasma anion gap determination (moles/volume) 9 mmol/L 5-14 Serum or plasma urea nitrogen measurement (mass/volume ) 18 mg/dL 7-18 Serum or plasma creatinine measurement (mass/volume) 1.48 mg/dL 0.60-1.30 Serum or plasma urea nitrogen/creatinine mass ratio 12 NRG Serum or plasma creatinine measurement w ith calculation of estimated glomerular filtration rate 34 NRG Serum or plasma glucose measurement (mass/volume) 73 mg/dL 70-105 Serum or plasma calcium measurement (mass/volume) 8.9 mg/dL 8.5-10.1 Serum or plasma total bilirubin measurement (mass/volu me) 0.7 mg/dL 0.1-1.0 Serum or plasma alkaline phosphatase taty surement (enzymatic activity/volume) 65 U/L 40-136 Serum or plasma aspartate aminotransfera se measurement (enzymatic activity/volume) 15 U/L 5-34 Serum or plasma alanine aminotransferase measurement (enzymatic activity/volume) 10 U/L 0-55 Serum or plasma protein measurement (mass/volume) 6.5 g/dL 6.4-8.2 Serum or plasma albumin measurement (mass/volume) 3.9 g/dL 3.2-4.5 Methicillin resistant Staphylococcus aur eus (MRSA) screening culture - 11/04/16 15:20 Methicillin resistant Staphylococcus aureus (MRSA) scr eening culture NEG NRG Complete blood count (CBC) with automate d white blood cell (WBC) differential - 08/05/18 12:20 Blood leukocytes automated count (number/volume) 5.7 10*3/uL 4.3-11.0 Blood erythrocytes automated count (number/volume) 4.16 10*6/uL 4.35-5.85 Venous blood hemoglobin measurement (mass/volume) 12.8 g/dL 11.5-16.0 Blood hematocrit (volume fraction) 39 % 35-52 Automated erythrocyte mean corpuscular volume 93 [ foz_us] 80-99 Automated erythrocyte mean corpuscular h emoglobin (mass per erythrocyte) 31 pg 25-34 Automated erythrocyte mean corpuscular h emoglobin concentration measurement (mass/volume) 33 g/dL 32-36 Automated erythrocyte distribution width ratio 13. 0 % 10.0- 14.5 Automated blood platelet count [...] 10*3 1.0-4.0 Blood monocytes automated count (number/volume) 0. 6 10*3 0.0-1.0 Automated eosinophil count 0.1 10*3/uL 0 .0-0.3 Automated blood basophil count (count/volume) 0.0 10*3/uL 0.0-0.1 Comprehensive metabolic panel - 08/05/18 12:20 Serum or plasma sodium measurement (moles/volume) 140 mmol/L 135-145 Serum or plasma potassium measurement (moles/volume) 4.0 mmol/L 3.6-5.0 Serum or plasma chloride measurement (moles/volume) 107 mmol/L 98-107 Carbon dioxide 22 mmol/L 21-32 Serum or plasma anion gap determination (moles/volume) 11 mmol/L 5-14 Serum or plasma urea nitrogen measurement (mass/volume ) 20 mg/dL 7-18 Serum or plasma creatinine measurement (mass/volume) 1.27 mg/dL 0.60-1.30 Serum or plasma urea nitrogen/creatinine mass ratio 16 NRG Serum or plasma creatinine measurement w ith calculation of estimated glomerular filtration rate 41 NRG Serum or plasma glucose measurement (mass/volume) 99 mg/dL 70-105 Serum or plasma calcium measurement (mass/volume) 9.5 mg/dL 8.5-10.1 Serum or plasma total bilirubin measurement (mass/volu me) 0.8 mg/dL 0.1-1.0 Serum or plasma alkaline phosphatase taty surement (enzymatic activity/volume) 69 U/L 40-136 Serum or plasma aspartate aminotransfera se measurement (enzymatic activity/volume) 15 U/L 5-34 Serum or plasma alanine aminotransferase measurement (enzymatic activity/volume) 13 U/L 0-55 Serum or plasma protein measurement (mass/volume) 6.8 g/dL 6.4-8.2 Serum or plasma albumin measurement (mass/volume) 4.1 g/dL 3.2-4.5 CALCIUM CORRECTED 9.4 mg/dL 8.5-10.1 PT panel in platelet poor plasma by coag ulation assay - 08/05/18 12:20 Prothrombin time (PT) in platelet poor plasma by coagu lation assay 15.4 s 12.2-14.7 INR in platelet poor plasma or blood by coagulation as say 1.2 0.8-1.4 Erythrocyte sedimentation rate by tan gren method - 08/05/18 12:20 Erythrocyte sedimentation rate by westergren method 40 mm 0- 30 Blood type T Indirect antibody screen pa bassem - 08/05/18 12:20 ABO+Rh group AP NRG Blood group antibody screen NEGATIVE NR G Methicillin resistant Staphylococcus aur eus (MRSA) screening culture - 08/05/18 12:20 Methicillin resistant Staphylococcus aureus (MRSA) scr eening culture NEG NRG Complete urinalysis with reflex to cultu re - 08/05/18 12:25 Urine color determination YELLOW NRG Urine clarity determination CLEAR NR G Urine pH measurement by test strip 5 5-9 Specific gravity of urine by test strip 1.020 1.016-1.022 Urine protein assay by test strip, semi-quantitative NEGATIVE NEGATIVE Urine glucose detection by automated test strip NE GATIVE NEGATIVE Erythrocytes detection in urine sediment by light micr oscopy 2+ NEGATIVE Urine ketones detection by automated test strip NE GATIVE NEGATIVE Urine nitrite detection by test strip NEGATIVE NEGATIVE Urine total bilirubin detection by test strip NEGA TIVE NEGATIVE Urine urobilinogen measurement by automated test strip (mass/volume) NORMAL NORMAL Urine leukocyte esterase detection by dipstick 3+ NEGATIVE Automated urine sediment erythrocyte cou nt by microscopy (number/high power field) RARE NRG Automated urine sediment leukocyte count by microscopy (number/high power field) [HPF] NRG Bacteria detection in urine sediment by light microsco py NEGATIVE NRG Squamous epithelial cells detection in u rine sediment by light microscopy 10-25 NRG Crystals detection in urine sediment by light microsco py NONE NRG Casts detection in urine sediment by light microscopy PRESENT NRG Mucus detection in urine sediment by light microscopy SMALL NRG Complete urinalysis with reflex to culture YES NRG Hyaline casts detection in urine sediment by light isabell roscopy 5-10 NRG Renal epithelial cells detection in urin e sediment by light microscopy NONE NRG Bacterial urine culture - 08/05/18 12:25 Blood type T Indirect antibody screen [employer] [facility] - 08/12/18 06:25 ABO+Rh group AP NRG Transfusion band number [id number] NRG Blood group antibody screen NEGATIVE NR G Blood type T Indirect antibody screen [facility] 08/19/18 08:55 ABO+Rh group AP NRG Transfusion band number [id number] NRG Blood group antibody screen NEGATIVE NR G Whole blood hemoglobin and hematocrit [employer] [facility] [employer] - 08/20/18 06:19 Venous blood hemoglobin measurement (mass/volume) 12.2 g/dL 11.5-16.0 Blood hematocrit (volume fraction) 36 % 35-52 Automated blood complete blood count (he mogram) panel - 08/21/18 06:00 Blood leukocytes automated count (number/volume) 9.3 10*3/uL 4.3-11.0 Blood erythrocytes automated count (number/volume) 3.63 10*6/uL 4.35-5.85 Venous blood hemoglobin measurement (mass/volume) 11.2 g/dL 11.5-16.0 Blood hematocrit (volume fraction) 34 % 35-52 Automated erythrocyte mean corpuscular volume 92 [ foz_us] 80-99 Automated erythrocyte mean corpuscular h emoglobin (mass per erythrocyte) 31 pg 25-34 Automated erythrocyte mean corpuscular h emoglobin concentration measurement (mass/volume) 33 g/dL 32-36 Automated erythrocyte distribution width ratio 12. 5 % 10.0- 14.5 Automated blood platelet count [...] 5-14 Serum or plasma urea nitrogen measurement (mass/volume ) 11 mg/dL 7-18 Serum or plasma creatinine measurement (mass/volume) 0.80 mg/dL 0.60-1.30 Serum or plasma urea nitrogen/creatinine mass ratio 14 NRG Serum or plasma creatinine measurement w ith calculation of estimated glomerular filtration rate > NRG Serum or plasma glucose measurement (mass/volume) 108 mg/dL 70-105 Serum or plasma calcium measurement (mass/volume) 9.1 mg/dL 8.5-10.1 Serum or plasma total bilirubin measurement (mass/volu me) 0.9 mg/dL 0.1-1.0 Serum or plasma alkaline phosphatase taty surement (enzymatic activity/volume) 57 U/L 40-136 Serum or plasma aspartate aminotransfera se measurement (enzymatic activity/volume) 17 U/L 5-34 Serum or plasma alanine aminotransferase measurement (enzymatic activity/volume) 9 U/L 0-55 Serum or plasma protein measurement (mass/volume) 5.9 g/dL 6.4-8.2 Serum or plasma albumin measurement (mass/volume) 3.4 g/dL 3.2-4.5 CALCIUM CORRECTED 9.6 mg/dL 8.5-10.1 THYROID STIMULATING HORMONE - 08/21/18 0 6:00 THYROID STIMULATING HORMONE 0.53 u[iU]/mL 0.35-4.94 Whole blood hemoglobin and hematocrit pa bassem - 08/22/18 06:50 Venous blood hemoglobin measurement (mass/volume) 11.0 g/dL 11.5-16.0 Blood hematocrit (volume fraction) 32 % 35-52 Automated blood complete blood count (he mogram) panel - 05/05/19 10:37 Blood leukocytes automated count (number/volume) 5.6 10*3/uL 4.3-11.0 Blood erythrocytes automated count (number/volume) 4.02 10*6/uL 4.35-5.85 Venous blood hemoglobin measurement (mass/volume) 12.4 g/dL 11.5-16.0 Blood hematocrit (volume fraction) 38 % 35-52 Automated erythrocyte mean corpuscular volume 95 [ foz_us] 80-99 Automated erythrocyte mean corpuscular h emoglobin (mass per erythrocyte) 31 pg 25-34 Automated erythrocyte mean corpuscular h emoglobin concentration measurement (mass/volume) 33 g/dL 32-36 Automated erythrocyte distribution width ratio 14. 3 % 10.0- 14.5 Automated blood platelet count (count/volume) 250 10*3/uL 130-400 Automated blood platelet mean volume measurement 10.1 [foz_us] 7.4-10.4 Comprehensive metabolic panel - 05/05/19 10:37 Serum or plasma sodium measurement (moles/volume) 139 mmol/L 135-145 Serum or plasma potassium measurement (moles/volume) 4.3 mmol/L 3.6-5.0 Serum or plasma chloride measurement (moles/volume) 108 mmol/L 98-107 Carbon dioxide 23 mmol/L 21-32 Serum or plasma anion gap determination (moles/volume) 8 mmol/L 5-14 Serum or plasma urea nitrogen measurement (mass/volume ) 22 mg/dL 7-18 Serum or plasma creatinine measurement (mass/volume) 1.31 mg/dL 0.60-1.30 Serum or plasma urea nitrogen/creatinine mass ratio 17 NRG Serum or plasma creatinine measurement w ith calculation of estimated glomerular filtration rate 39 NRG Serum or plasma glucose measurement (mass/volume) 92 mg/dL 70-105 Serum or plasma calcium measurement (mass/volume) 9.7 mg/dL 8.5-10.1 Serum or plasma total bilirubin measurement (mass/volu me) 0.7 mg/dL 0.1-1.0 Serum or plasma alkaline phosphatase taty surement (enzymatic activity/volume) 79 U/L 40-136 Serum or plasma aspartate aminotransfera se measurement (enzymatic activity/volume) 19 U/L 5-34 Serum or plasma alanine aminotransferase measurement (enzymatic activity/volume) 19 U/L 0-55 Serum or plasma protein measurement (mass/volume) 7.4 g/dL 6.4-8.2 Serum or plasma albumin measurement (mass/volume) 4.5 g/dL 3.2-4.5 CALCIUM CORRECTED 9.3 mg/dL 8.5-10.1 Lipid 1996 panel - 05/05/19 10:37 Serum or plasma triglyceride measurement (mass/volume) 128 mg/dL <150 Serum or plasma cholesterol measurement (mass/volume) 187 mg/dL < 200 Serum or plasma cholesterol in HDL measurement (mass/v olume) 52 mg/dL 40-60 Cholesterol in LDL [mass/volume] in serum or plasma by direct assay 120 mg/dL 1-129 Serum or plasma cholesterol in VLDL measurement (mass/ volume) 26 mg/dL 5-40 PT panel in platelet poor plasma by coag ulation assay - 05/05/19 10:37 Prothrombin time (PT) in platelet poor plasma by coagu lation assay 13.5 s 12.2-14.7 INR in platelet poor plasma or blood by coagulation as say 1.0 0.8-1.4 Activated partial thromboplastin time (a PTT) in platelet poor plasma bycoagulation assay - 05/05/19 10:37 Activated partial thromboplastin time (a PTT) in platelet poor plasma bycoagulation assay 33 s 24-35 Methicillin resistant Staphylococcus aur eus (MRSA) screening culture - 05/05/19 10:37 Methicillin resistant Staphylococcus aureus (MRSA) scr eening culture NEG NRG Complete blood count (CBC) with automate d white blood cell (WBC) differential - 08/19/19 13:45 Blood leukocytes automated count (number/volume) 6.1 10*3/uL 4.3-11.0 Blood erythrocytes automated count (number/volume) 4.47 10*6/uL 4.35-5.85 Venous blood hemoglobin measurement (mass/volume) 12.9 g/dL 11.5-16.0 Blood hematocrit (volume fraction) 40 % 35-52 Automated erythrocyte mean corpuscular volume 89 [ foz_us] 80-99 Automated erythrocyte mean corpuscular h emoglobin (mass per erythrocyte) 29 pg 25-34 Automated erythrocyte mean corpuscular h emoglobin concentration measurement (mass/volume) 32 g/dL 32-36 Automated erythrocyte distribution width ratio 13. 4 % 10.0- 14.5 Automated blood platelet count (count/volume) 265 10*3/uL 130-400 Automated blood platelet mean volume measurement 10.5 [foz_us] 7.4-10.4 Automated blood neutrophils/100 leukocytes 70 % 42-75 Automated blood lymphocytes/100 leukocytes 18 % 12-44 Blood monocytes/100 leukocytes 10 % 0-12 Automated blood eosinophils/100 leukocytes 2 % 0-10 Automated blood basophils/100 leukocytes 1 % 0-10 Blood neutrophils automated count (number/volume) 4.2 10*3 1.8-7.8 Blood lymphocytes automated count (number/volume) 1.1 10*3 1.0-4.0 Blood monocytes automated count (number/volume) 0. 6 10*3 0.0-1.0 Automated eosinophil count 0.1 10*3/uL 0 .0-0.3 Automated blood basophil count (count/volume) 0.0 10*3/uL 0.0-0.1 PT panel in platelet poor plasma by coag ulation assay - 08/19/19 13:45 Prothrombin time (PT) in platelet poor plasma by coagu lation assay 14.7 s 12.2-14.7 INR in platelet poor plasma or blood by coagulation as say 1.1 0.8-1.4 Comprehensive metabolic panel - 08/19/19 13:45 Serum or plasma sodium measurement (moles/volume) 142 mmol/L 135-145 Serum or plasma potassium measurement (moles/volume) 3.8 mmol/L 3.6-5.0 Serum or plasma chloride measurement (moles/volume) 106 mmol/L 98-107 Carbon dioxide 26 mmol/L 21-32 Serum or plasma anion gap determination (moles/volume) 10 mmol/L 5-14 Serum or plasma urea nitrogen measurement (mass/volume ) 14 mg/dL 7-18 Serum or plasma creatinine measurement (mass/volume) 1.07 mg/dL 0.60-1.30 Serum or plasma urea nitrogen/creatinine mass ratio 13 NRG Serum or plasma creatinine measurement w ith calculation of estimated glomerular filtration rate 49 NRG Serum or plasma glucose measurement (mass/volume) 91 mg/dL 70-105 Serum or plasma calcium measurement (mass/volume) 9.7 mg/dL 8.5-10.1 Serum or plasma total bilirubin measurement (mass/volu me) 0.6 mg/dL 0.1-1.0 Serum or plasma alkaline phosphatase taty surement (enzymatic activity/volume) 78 U/L 40-136 Serum or plasma aspartate aminotransfera se measurement (enzymatic activity/volume) 16 U/L 5-34 Serum or plasma alanine aminotransferase measurement (enzymatic activity/volume) 11 U/L 0-55 Serum or plasma protein measurement (mass/volume) 7.2 g/dL 6.4-8.2 Serum or plasma albumin measurement (mass/volume) 4.3 g/dL 3.2-4.5 CALCIUM CORRECTED 9.5 mg/dL 8.5-10.1 Complete urinalysis with reflex to cultu re - 08/19/19 13:45 Urine color determination YELLOW NRG Urine clarity determination CLEAR NR G Urine pH measurement by test strip 6.5 5-9 Specific gravity of urine by test strip 1.005 1.016-1.022 Urine protein assay by test strip, semi-quantitative 1+ NEGATIVE Urine glucose detection by automated test strip NE GATIVE NEGATIVE Erythrocytes detection in urine sediment by light micr oscopy 1+ NEGATIVE Urine ketones detection by automated test strip NE GATIVE NEGATIVE Urine nitrite detection by test strip NEGATIVE NEGATIVE Urine total bilirubin detection by test strip NEGA TIVE NEGATIVE Urine urobilinogen measurement by automated test strip (mass/volume) NORMAL NORMAL Urine leukocyte esterase detection by dipstick 3+ NEGATIVE Automated urine sediment erythrocyte cou nt by microscopy (number/high power field) NONE NRG Automated urine sediment leukocyte count by microscopy (number/high power field) > [HPF] NRG Bacteria detection in urine sediment by light microsco py TRACE NRG Squamous epithelial cells detection in u rine sediment by light microscopy 10-25 NRG Crystals detection in urine sediment by light microsco py NONE NRG Casts detection in urine sediment by light microscopy NONE NRG Mucus detection in urine sediment by light microscopy NEGATIVE NRG Complete urinalysis with reflex to culture YES NRG Erythrocyte sedimentation rate by tan gren method - 08/19/19 13:45 Erythrocyte sedimentation rate by westergren method 23 mm 0- 30 Blood type T Indirect antibody screen [facility] - 08/19/19 13:45 ABO+Rh group AP NRG Blood group antibody screen NEGATIVE NR G Bacterial urine culture - 08/19/19 13:45 Bacterial urine culture 3 OR MORE NRG COLONY COUNT 30,000 CFU/ML NRG FTX;REPORTABLE SUGGESTING PROBABLE COLLECTION NRG FREE TEXT ENTRY 2 CONTAMINATION WITH SKIN FELECIA NRG FREE TEXT ENTRY 3 NO SUSCEPTIBILITY PERFORMED NRG Methicillin resistant Staphylococcus aur eus (MRSA) screening culture - 08/19/19 13:45 Methicillin resistant Staphylococcus aureus (MRSA) scr eening culture NEG NRG Blood type T Indirect antibody screen [facility] - 09/01/19 06:25 WRISTBAND NUMBER [id number] NRG ABO+Rh group AP NRG Blood group antibody screen NEGATIVE NR G Whole blood hemoglobin and hematocrit [facility] - 09/02/19 06:12 Venous blood hemoglobin measurement (mass/volume) 10.1 g/dL 11.5-16.0 Blood hematocrit (volume fraction) 31 % 35-52 Whole blood hemoglobin and hematocrit [facility] 09/03/19 06:10 Venous blood hemoglobin measurement (mass/volume) 9.4 g/dL 11.5-16.0 Blood hematocrit (volume fraction) 29 % 35-52 Comprehensive metabolic panel - 01/03/20 08:45 Serum or plasma sodium measurement (moles/volume) 139 mmol/L 135-145 Serum or plasma potassium measurement (moles/volume) 4.0 mmol/L 3.6-5.0 Serum or plasma chloride measurement (moles/volume) 103 mmol/L 98-107 Carbon dioxide 22 mmol/L 21-32 Serum or plasma anion gap determination (moles/volume) 14 mmol/L 5-14 Serum or plasma urea nitrogen measurement (mass/volume ) 20 mg/dL 7-18 Serum or plasma creatinine measurement (mass/volume) 1.03 mg/dL 0.60-1.30 Serum or plasma urea nitrogen/creatinine mass ratio 19 NRG Serum or plasma creatinine measurement w ith calculation of estimated glomerular filtration rate 52 NRG Serum or plasma glucose measurement (mass/volume) 103 mg/dL 70-105 Serum or plasma calcium measurement (mass/volume) 9.5 mg/dL 8.5-10.1 Serum or plasma total bilirubin measurement (mass/volu me) 0.7 mg/dL 0.1-1.0 Serum or plasma alkaline phosphatase taty surement (enzymatic activity/volume) 88 U/L 40-136 Serum or plasma aspartate aminotransfera se measurement (enzymatic activity/volume) 12 U/L 5-34 Serum or plasma alanine aminotransferase measurement (enzymatic activity/volume) 6 U/L 0-55 Serum or plasma protein measurement (mass/volume) 7.1 g/dL 6.4-8.2 Serum or plasma albumin measurement (mass/volume) 4.0 g/dL 3.2-4.5 CALCIUM CORRECTED 9.5 mg/dL 8.5-10.1 Lipid 1996 panel - 01/03/20 08:45 Serum or plasma triglyceride measurement (mass/volume) 124 mg/dL <150 Serum or plasma cholesterol measurement (mass/volume) 178 mg/dL < 200 Serum or plasma cholesterol in HDL measurement (mass/v olume) 48 mg/dL 40-60 Cholesterol in LDL [mass/volume] in serum or plasma by direct assay 119 mg/dL 1-129 Serum or plasma cholesterol in VLDL measurement (mass/ volume) 25 mg/dL 5-40 Serum or plasma uric acid measurement (m ass/volume) - 01/03/20 08:45 Serum or plasma uric acid measurement (mass/volume) 6.4 mg/dL 2.6-7.2 Erythrocyte sedimentation rate by tan gren method - 01/03/20 14:05 Erythrocyte sedimentation rate by westergren method 36 mm 0- 30 [id number] - 01/03/20 14:05 Screening antinuclear antibody (ERA) assay by enzyme i mmunoassay Positive <1:80 Serum nuclear antibody pattern interpretation Spec kled NRG Serum nuclear antibody titer < 1:80 Automated blood complete blood count (he mogram) panel - 05/10/20 11:22 Blood leukocytes automated count (number/volume) 6.1 10*3/uL 4.3-11.0 Blood erythrocytes automated count (number/volume) 4.73 10*6/uL 4.35-5.85 Venous blood hemoglobin measurement (mass/volume) 13.3 g/dL 11.5-16.0 Blood hematocrit (volume fraction) 42 % 35-52 Automated erythrocyte mean corpuscular volume 88 [ foz_us] 80-99 Automated erythrocyte mean corpuscular h emoglobin (mass per erythrocyte) 28 pg 25-34 Automated erythrocyte mean corpuscular h emoglobin concentration measurement (mass/volume) 32 g/dL 32-36 Automated erythrocyte distribution width ratio 14. 5 % 10.0- 14.5 Automated blood platelet count (count/volume) 302 10*3/uL 130-400 Automated blood platelet mean volume measurement 9.6 [foz_us] 7.4-10.4 Comprehensive metabolic panel - 05/10/20 11:22 Serum or plasma sodium measurement (moles/volume) 143 mmol/L 135-145 Serum or plasma potassium measurement (moles/volume) 4.0 mmol/L 3.6-5.0 Serum or plasma chloride measurement (moles/volume) 106 mmol/L 98-107 Carbon dioxide 22 mmol/L 21-32 Serum or plasma anion gap determination (moles/volume) 15 mmol/L 5-14 Serum or plasma urea nitrogen measurement (mass/volume ) 20 mg/dL 7-18 Serum or plasma creatinine measurement (mass/volume) 0.98 mg/dL 0.60-1.30 Serum or plasma urea nitrogen/creatinine mass ratio 20 NRG Serum or plasma creatinine measurement w ith calculation of estimated glomerular filtration rate 55 NRG Serum or plasma glucose measurement (mass/volume) 112 mg/dL 70-105 Serum or plasma calcium measurement (mass/volume) 9.3 mg/dL 8.5-10.1 Serum or plasma total bilirubin measurement (mass/volu me) 0.5 mg/dL 0.1-1.0 Serum or plasma alkaline phosphatase taty surement (enzymatic activity/volume) 95 U/L 40-136 Serum or plasma aspartate aminotransfera se measurement (enzymatic activity/volume) 15 U/L 5-34 Serum or plasma alanine aminotransferase measurement (enzymatic activity/volume) 8 U/L 0-55 Serum or plasma protein measurement (mass/volume) 7.1 g/dL 6.4-8.2 Serum or plasma albumin measurement (mass/volume) 4.0 g/dL 3.2-4.5 CALCIUM CORRECTED 9.3 mg/dL 8.5-10.1 Encounters ACCT No. Visit Date/Time Discharge Status Pt. Type Provider Facility Loc./Unit Complaint [id number] 07/03/2020 08:50:00 ACT Outpatient MARV VIRAL, EMA [facility] [id number] 05/10/2020 11:01:00 020 23:59:59 CLS Outpatient KAITLYN SINGLETON, KAROL guevara [facility] LAB FS M13.80 [id number] 01/03/2020 13:53:00 020 23:59:59 CLS Outpatient MERLINE PHMA MD [facility] LAB FS M25.50 [id number] 01/03/2020 08:30:00 23:59:59 CLS Outpatient ONEIL DIAZ MD [facility] LAB FS I25.10 N18.9 E78.2 R00. 2 I48.0 [id number] 09/01/2019 05:54:00 10:48:00 DIS Inpatient ALBERTO LOERA MD [facility] 4TH OSTEOARTHRITIS LEFT KNE E [id number] 08/19/2019 13:03:00 15:30:00 DIS Outpatient ALBERTO LOERA MD [facility] PREOP LEFT TOTAL KNEE REPLAC EMENT [id number] 06/25/2019 12:01:00 23:59:59 CLS Outpatient KAITLYN SINGLETON, KAROL guevara [facility] CARD CORONARY ARTERY DISEASE [id number] 05/05/2019 10:04:00 17:06:00 DIS Outpatient ONEIL DIAZ MD [facility] CATH CAD [id number] 04/20/2019 11:57:00 23:59:59 CLS Preadmit ONEIL DIAZ MD [facility] CARD PAF [id number] 11/18/2018 08:21:00 23:59:59 CLS Outpatient ALBERTO LOERA MD [facility] RAD RADICULOPATHY,LUMBAR R EGION [id number] 08/19/2018 08:25:00 10:34:00 DIS Inpatient ALBERTO LOERA MD [facility] 4TH OSTEOARTHRITIS [id number] 08/12/2018 05:54:00 07:20:00 DIS [facility] RIGH T [facility]NEE [id number] 08/05/2018 11:33:00 12:35:00 DIS Outpatient ALBERTO LOERA MD [facility] PREOP OSTEOARTHRITIS RIGHT K NEE [id number] 04/04/2017 08:39:00 017 23:59:59 CLS Outpatient YUNG PIÑA MD [facility] RAD HEMATURIA [id number] 11/12/2016 06:25:00 016 12:40:00 DIS Outpatient YUNG PIÑA MD [facility] SDC CYSTOCELE [id number] 11/04/2016 14:00:00 016 16:00:00 DIS Outpatient YUNG PIÑA MD [facility] PREOP CYSTOCELE [id number] 10/07/2014 08:48:00 014 23:59:59 CLS Outpatient KATHARINA NEW MD [facility] RAD 3 MONTH FOLLOW UP [id number] 07/26/2014 13:14:00 014 23:59:59 CLS Outpatient KATHARINA NEW MD [facility] RAD ABNORMAL MAMMO [id number] 07/12/2014 14:24:00 014 23:59:59 CLS Outpatient KATHARINA NEW MD [facility] RAD SCREENING [id number] 07/09/2013 09:40:00 013 23:59:59 CLS Outpatient KATHARINA NEW MD [facility] RAD SCREENING [id number] 07/04/2020 17:59:[address] Emergency KELLY TIMMONS DO [facility] ER FS EAR PAIN,TONGUE SWELLING [id number] 07/17/2015 10:42:00 Document Registration [id number] 02/11/2013 07:53:00 Document Registration [id number] 10/08/2012 06:57:00 Document Registration [id number] 10/07/2012 08:05:00 Document Registration [id number] 07/08/2012 12:10:00 Document Registration [id number] 10/22/2011 13:17:00 Document Registration [id number] 07/16/2011 12:59:00 Document Registration [id number] 06/28/2011 11:27:00 Document Registration
[2020-07-04 20:07] VITALS: BP 164/74
[2020-07-05] MEDS ORDERED: METH2.5T PO (15:17)
[2020-07-05] MEDS ORDERED: CEPH250C PO (15:17)
[2020-07-05] MEDS ORDERED: FOLIC ACID PO (15:17)
[2020-07-05] MEDS ORDERED: TRAM50TA3 PO (15:17)
[2020-07-05] MEDS ORDERED: ACET-2267 PO (15:22)
--- NOTE | 2020-07-06 01:41 | CONSULTATION REPORT ---
DATE OF SERVICE: ENT HISTORY AND PHYSICAL ROOM: 404, [facility]. REASON FOR ADMISSION: Right facial palsy, swollen right ear. HISTORY OF PRESENT ILLNESS: The patient is an 79-year-old female who last Friday began to have swelling of the right ear and she subsequently developed ear pain. She was seen in the emergency room yesterday evening. At that time was diagnosed with a swollen right ear. She was given a dose of IV Cipro and referred for evaluation. She has no prior history of symptoms. She has noticed that she is not moving her face as well as she was previously on the right side only. She complains of dizziness and nausea when she gets up and moves around. She has no marked pain in the ear. Otherwise, she believes her hearing is intact on the right side. PAST MEDICAL HISTORY: Significant for a tonsillectomy, hysterectomy, 3 breast biopsies, back surgery, hemorrhoidectomy, incisional hernia surgery, bladder pinned up x3, rectal pinned up x2, thyroidectomy, a right knee replacement and also a left knee replacement. ALLERGIES: None known. MEDICATIONS: Include tramadol 500 mg t.i.d. p.r.n., metoprolol 50 mg every day, 180/24 hours 1 per day, levothyroxine 100 mcg, Friday, Friday, and Friday, Eliquis 5 mg b.i.d., lisinopril/hydrochlorothiazide 20 mg/12.5 mg 1 every day, estradiol 0.5 mg 1 q. week, alprazolam 0.25 mg p.r.n. for restless legs, cephalexin 250 mg 1 per day, amitriptyline 10 mg 1 per day, cranberry extract, Tylenol and melatonin 5 mg p.r.n. SOCIAL HISTORY: Tobacco: None. Alcohol: None. SYSTEM REVIEW: The patient does have multiple medical problems as discussed above. PHYSICAL EXAMINATION: GENERAL: She was in no acute distress. She was sitting in a wheelchair. She is unable to walk because of her dizziness. FACE: She has a grade V/ right facial palsy. She was unable to close the right eye. There is no marked swelling seen on the face. EYES: There are no ulcerations seen. There is no spontaneous nystagmus present. EARS: The right auricle was swollen with a small fissure inferior between the tragus and the lower antihelix. It was not particularly tender to palpation. The canal itself had a wick in it. The wick was removed. The canal was normal. There is no swelling seen. The drum was intact and mobile. There is no swelling seen postauricularly. Left ear was normal. NOSE: Normal nasal mucosa, no masses or lesions seen. There is no drainage present. Oral cavity was clear without sign of infection or lesion. Pharynx no mass or ulceration was seen. Larynx good airway present. No stridor noted. NECK: No mass, adenopathy, or thyromegaly palpable within the neck. NEUROLOGIC: Cranial nerves II-XII are intact except as noted above on the facial nerve. SKIN: Exposed skin surfaces were otherwise clear. IMPRESSION: 1. Right facial palsy. 2. Dizziness without spontaneous nystagmus. 3. Swollen right ear. RECOMMENDATIONS: Findings were discussed with her and her . She will be admitted to the hospital for workup and treatment. She will be started on Levaquin 500 mg once a day, Zofran 4 mg IV as needed for the nausea. We will obtain a CT of the temporal bones on admission to rule out any ongoing frontotemporal bones that was negative. 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 If she does not see improvement over the next 24 hours, we will add steroids as well as an antiviral and potentially get an MRI of the head with gadolinium to rule out any other central cause or pinpoint stroke. Bactroban to be applied twice a day to the right ear will be written for. She may take all of her normal home medications as well. Job ID: [id number] DocumentID: [id number] Dictated Date: 07/05/2020 17:36:36 Ladle Car Operator Date: 07/05/2020 21:07:22 Dictated By: ALBERTO JOHNSON MD
--- NOTE | 2020-07-06 02:04 | CONSULTATION REPORT ---
DATE OF SERVICE: 07/04/2020 PROGRESS NOTE TIME: 1700. ROOM: 404, [facility]. We received the lab work back. Her white count was 9.1. BMP was normal. X-ray findings show the right temporal bone and middle ear to be completely normal. It is well aerated. Subjectively, she reports no change in her symptoms. She still has symptoms when she gets up from dizziness. She is unable to close her right eye. We will continue the current regimen. I have encouraged her to try some soft food tonight if she can get it down. We will see how she has done early tomorrow morning. If she is not better, we will add antiviral as well as steroids and get an MRI of the head with gadolinium to rule out any other central brain cause of the symptoms. Job ID: [id number] DocumentID: [id number] Dictated Date: 07/05/2020 17:36:36 [employer]e [employer] Solution Architect Date: 07/05/2020 21:11:26 Dictated By: ALBERTO JOHNSON MD
[2020-07-09] MEDS ORDERED: PRD20T PO (07:58)
[2020-07-09] MEDS ORDERED: VALA500T4 PO (07:58)
[2020-07-09] MEDS ORDERED: LEVO500T2 PO (08:03)
== END 2020-07-04 20:07 | disposition home or self-care (01) ==
LOC: EDUNIT# 17:57 → ER FS 17:59
DX: H60.91 Unspecified otitis externa, right ear (principal); I25.10 Atherosclerotic heart disease of native coronary artery without angina pectoris; I48.91 Unspecified atrial fibrillation; E03.9 Hypothyroidism, unspecified; F41.9 Anxiety disorder, unspecified; M17.0 Bilateral primary osteoarthritis of knee; Z95.5 Presence of coronary angioplasty implant and graft; Z88.8 Allergy status to other drugs, medicaments and biological substances; Z82.49 Family history of ischemic heart disease and other diseases of the circulatory system; Z79.01 Long term (current) use of anticoagulants; Z79.890 Hormone replacement therapy
CPT/HCPCS: 96365

== ENCOUNTER 2020-07-21 15:35 | Inpatient (IN) | payer MEDICARE ==
[~2020-07-21] VITALS: Ht 157.5 cm; Wt 85.0 kg
[~2020-07-21 15:35] MED LIST changes: +ACET-2267 PO; +CIPR500T4 PO; +FOLIC ACID PO; +LEVO500T2 PO; +MECL-149 PO; +METH2.5T PO; +PRD20T PO; +TRAM50TA3 PO; +VALA500T4 PO
--- NOTE | 2020-07-21 15:45 | ED General ---
General Stated Complaint: WEAKNESS,DEHYDRATION Source of Information: Patient Exam Limitations: No Limitations (RAKEL GRAY DO) History of Present Illness Date Seen by Provider: Jul 21, 2020 Time Seen by Provider: 15:45 Initial Comments Patient presents with some dizziness and concerns with dehydration. 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 Patient has had decreased appetite with intractable nausea for about the last 3-4 days. Patient's physician center and with concerns of possible dehydration. She is tried Phenergan and Zofran with minimal relief for her nausea. Patient denies any abdominal pain. She reports she had a normal bowel movement yesterday. Patient reports some vision issues due to the Ramos's palsy that improves if she covers her right eye. She thinks that this might be contributing to her nausea. (RAKEL GRAY DO) Allergies and Home Medications Allergies Coded Allergies: Hcnftrl-Opa-Kdp Reductase Inhibitor (Verified Allergy, Intermediate, WEAKNESS, 08/19/19) aspirin (Unverified Allergy, Mild, HIVES, 08/19/19) methocarbamol (Unverified Allergy, Mild, HIVES, 08/19/19) Home Medications Acetaminophen 500 Mg Tablet, 500 MG PO Q8H PRN for PAIN-MILD (1-4), (Reported) Alprazolam 0.25 Mg Tablet, 0.25 MG PO BID PRN for RESTLESSNESS, (Reported) Amitriptyline HCl 10 Mg Tablet, 10 MG PO HS, (Reported) Apixaban 5 Mg Tablet, 5 MG PO BID, (Reported) Cephalexin 250 Mg Capsule, 250 MG PO HS, (Reported) Diltiazem HCl 180 Mg Cap.er.24h, 180 MG PO DAILY, (Reported) Estradiol 0.5 Mg Tablet, 0.5 MG PO THUR, (Reported) Levofloxacin 500 Mg Tablet, 500 MG PO DAILY Prescribed by: DI LAY on 07/09/20 0803 Levothyroxine Sodium 125 Mcg Tablet, 125 MCG PO MoWeFr, (Reported) ALTERNATES WITH 100MCG TABLET Levothyroxine Sodium 100 Mcg Tablet, 100 MCG PO SuTuThSa, (Reported) ALERNATES WITH 125MCG TABLET Lisinopril/Hydrochlorothiazide 1 Each Tablet, 1 TAB PO DAILY, (Reported) Melatonin 5 Mg Capsule, 5 MG PO HS PRN for INSOMNIA, (Reported) Methotrexate Sodium 2.5 Mg Tablet, 12.5 MG PO THURS, (Reported) TAKES 5 (2.5MG) TABS ONCE WEEKLY Metoprolol Succinate 50 Mg Tab.er.24h, 50 MG PO DAILY, (Reported) Prednisone 20 Mg Tab, 20 MG PO UD TAKE 2 TABLETS DAILY X 4 DAYS THEN 1 TABLET DAILY X 4 DAYS THEN STOP Prescribed by: DI LAY on 07/09/20757 Tramadol HCl 50 Mg Tablet, 50 MG PO Q8H PRN for PAIN-MODERATE (5-7), (Reported) Valacyclovir HCl 500 Mg Tablet, 500 MG PO BID Prescribed by: DI LAY on 07/09/20757 [Folic Acid ] 1MG TAB, 1 MG PO DAILY, (Reported) Patient Home Medication List Home Medication List Reviewed: Yes (RAKEL GRAY DO) Home Medication List Reviewed: Yes (SHANTEL MAST DO) Review of Systems Review of Systems Constitutional: No chills; dizziness; No fever; malaise, weakness EENTM: see HPI Respiratory: no symptoms reported Cardiovascular: no symptoms reported Gastrointestinal: see HPI, nausea Musculoskeletal: no symptoms reported Skin: no symptoms reported Psychiatric/Neurological: See HPI (RAKEL GRAY DO) Past Qxldmap-Ranoff-Gshpzf Hx Past Med/Social Hx: Reviewed Nursing Past Med/Soc Hx (RAKEL GRAY DO) Patient Social History 2nd Hand Smoke Exposure: No Recent Hopitalizations: Yes (BACK SURGERY MAY 2019) (RAKEL GRAY DO) Immunizations Up To Date Date of Pneumonia Vaccine: Sep 08, 2017 Date of Influenza Vaccine: Aug 18, 2018 (RAKEL GRAY DO) Seasonal Allergies Seasonal Allergies: Yes (RAKEL GRAY DO) Past Medical History Surgeries: Yes (BACK X2, INCISIONAL HERNIA, BLADDER X2, STENT, HIATAL HERNIA, HEMORRHOID,) Bladder Surgery, Hysterectomy, Thyroidectomy Respiratory: No Currently Using CPAP: No Currently Using BIPAP: No Cardiac: Yes (STENT ) Angina, Atrial Fibrillation, Coronary Artery Disease Neurological: No Reproductive Disorders: No Sexually Transmitted Disease: No HIV/AIDS: No Genitourinary: Yes Kidney Stones, UTI-Chronic Gastrointestinal: Yes Chronic Diarrhea Musculoskeletal: Yes (BILAT KNEE PAIN, HX BACK SURGERY) Arthritis Endocrine: Yes (thyroidectomy) Hypothyroidsim HEENT: Yes (READING GLASSES) Loss of Vision: Denies Hearing Impairment: Denies Cancer: No Psychosocial: Yes Anxiety Integumentary: No Blood Disorders: No Adverse Reaction/Blood Tranf: No (HAS HAD BLOOD WITH NO REACTION) (RAKEL GRAY DO) Family Medical History Cardiovascular disease G8 SISTER Diabetes mellitus 19 FATHER G8 BROTHER G8 SISTER Hypertension 19 FATHER G8 SISTER Myocardial infarction 19 FATHER G8 BROTHER Diabetes, Hypertension (RAKEL GRAY DO) Physical Exam Vital Signs Vital Signs - First Documented 07/21/20 07/21/20 15:57 20:48 Temp 36.6 Pulse 130 Resp 22 B/P (MAP) 165/98 (120) Pulse Ox 96 O2 Delivery Room Air (SHANTEL MAST DO) Vital Signs Capillary Refill : (RAKEL GRAY DO) Height, Weight, BMI Height: 5'2.00" Weight: 172lbs. 0.0oz. 78.060075df; 34.06 BMI Method: General Appearance: Mild Distress, Other (right-sided facial droop consistent with Ramos's palsy) Eyes: Right Eye Other (decreased blinking and right lid droopiness) HEENT: PERRL/EOMI Neck: Full Range of Motion Respiratory: Lungs Clear, Normal Breath Sounds Cardiovascular: Regular Rate, Rhythm, Normal Peripheral Pulses Gastrointestinal: Non Tender, Soft Extremity: Normal Capillary Refill, Normal Inspection Neurologic/Psychiatric: Alert, Oriented x3, Other ( right-sided facial droop consistent with Ramos's palsy) Skin: Warm/Dry (RAKEL GRAY DO) Focused Exam Lactate Level 07/21/20 19:10: Lactic Acid Level 3.44*H (SHANTEL MAST DO) Lactic Acid Level Laboratory Tests Test 07/21/20 19:10 Lactic Acid Level 3.44 MMOL/L (0.50-2.00) *H (PROSHANTEL Yudelka DO) Progress/Results/Core Measures Suspected Sepsis SIRS Temperature: Pulse: Respiratory Rate: Laboratory Tests 07/21/20 16:08: White Blood Count 19.0H Blood Pressure / Mean: Laboratory Tests 07/21/20 16:08: Creatinine 1.05, Platelet Count 248, Total Bilirubin 1.2H (RAKEL GRAY DO) Results/Orders Lab Results Laboratory Tests Test 07/21/20 16:08 07/21/20 19:10 07/21/20 19:35 07/21/20 19:55 Range/Units White Blood Count 19.0 H 4.3-11.0 10^3/uL Red Blood Count 6.21 H 4.35-5.85 10^6/uL Hemoglobin 18.6 H 11.5-16.0 G/DL Hematocrit 53 H 35-52 % Mean Corpuscular Volume 86 80-99 FL Mean Corpuscular Hemoglobin 30 25-34 PG Mean Corpuscular Hemoglobin Concent 35 32-36 G/DL Red Cell Distribution Width 17.2 H 10.0-14.5 % Platelet Count 248 130-400 10^3/uL Mean Platelet Volume 10.5 H 7.4-10.4 FL Neutrophils (%) (Auto) 92 H 42-75 % Lymphocytes (%) (Auto) 4 L 12-44 % Monocytes (%) (Auto) 5 0-12 % Eosinophils (%) (Auto) 0 0-10 % Basophils (%) (Auto) 0 0-10 % Neutrophils # (Auto) 17.3 H 1.8-7.8 X 10^3 Lymphocytes # (Auto) 0.7 L 1.0-4.0 X 10^3 Monocytes # (Auto) 0.9 0.0-1.0 X 10^3 Eosinophils # (Auto) 0.0 0.0-0.3 10^3/uL Basophils # (Auto) 0.0 0.0-0.1 10^3/uL Neutrophils % (Manual) 92 % Lymphocytes % (Manual) 2 % Monocytes % (Manual) 6 % Blood Morphology Comment NORMAL Sodium Level 136 135-145 MMOL/L Potassium Level 4.1 3.6-5.0 MMOL/L Chloride Level 100 98-107 MMOL/L Carbon Dioxide Level 21 21-32 MMOL/L Anion Gap 15 H 5-14 MMOL/L Blood Urea Nitrogen 19 H 7-18 MG/DL Creatinine 1.05 0.60-1.30 MG/DL Estimat Glomerular Filtration Rate 50 BUN/Creatinine Ratio 18 Glucose Level 166 H 70-105 MG/DL Calcium Level 9.8 8.5-10.1 MG/DL Corrected Calcium 9.6 8.5-10.1 MG/DL Magnesium Level 1.7 1.6-2.4 MG/DL Total Bilirubin 1.2 H 0.1-1.0 MG/DL Aspartate Amino Transf (AST/SGOT) 13 5-34 U/L Alanine Aminotransferase (ALT/SGPT) 14 0-55 U/L Alkaline Phosphatase 89 40-136 U/L Total Protein 7.4 6.4-8.2 GM/DL Albumin 4.2 3.2-4.5 GM/DL Lipase 5 L 8-78 U/L TSH [place] Testing 1.37 0.35-4.94 UIU/ML Lactic Acid Level 3.44 *H 0.50-2.00 MMOL/L Urine Color YELLOW Urine Clarity CLOUDY Urine pH 7.0 5-9 Urine Specific [place] 1.010 L 1.016-1.022 Urine Protein TRACE H NEGATIVE Urine Glucose (UA) NEGATIVE NEGATIVE Urine Ketones NEGATIVE NEGATIVE Urine Nitrite NEGATIVE NEGATIVE Urine Bilirubin NEGATIVE NEGATIVE Urine Urobilinogen 0.2 < = 1.0 MG/DL Urine Leukocyte Esterase 2+ H NEGATIVE Urine RBC (Auto) 1+ H NEGATIVE Urine RBC RARE /HPF Urine WBC TNTC H /HPF Urine Squamous Epithelial Cells 0-2 /HPF Urine Crystals NONE /LPF Urine Bacteria TRACE /HPF Urine Casts NONE /LPF Urine Mucus NEGATIVE /LPF Urine Culture Indicated YES Prothrombin Time 13.7 12.2-14.7 SEC INR Comment 1.0 0.8-1.4 Activated Partial Thromboplast Time 26 24-35 SEC (SHANTEL MAST DO) My Orders Orders - SHANTEL MAST DO Ed Iv/Invasive Line Start (07/21/20 18:04) Lactated Ringers (Lr 1000 Ml Iv Solution (07/21/20 18:04) Lactic Acid Analyzer (07/21/20 18:04) Magnesium (07/21/20 18:04) Blood Culture (07/21/20 18:04) Protime With Inr (07/21/20 18:06) Partial Thromboplastin Time (07/21/20 18:06) Thyroid Analyzer (07/21/20 18:06) Iohexol Injection (Omnipaque 350 Mg/Ml 1 (07/21/20 18:15) Received Contrast (Hold Metformin- Contr (07/21/20 18:15) Sodium Chloride Flush (Catheter Flush Sy (07/21/20 18:15) Ns (Ivpb) (Sodium Chloride 0.9% Ivpb Bag (07/21/20 18:15) Catheter(Urinary) Insert & Ass 03,15 (07/21/20 19:22) Ceftriaxone For Iv Use (Rocephin For I (07/21/20 20:00) Ekg Tracing (07/21/20 20:03) Monitor-Rhythm Ecg Trace Only (07/21/20 20:03) (SHANTEL MAST DO) Medications Given in ED Current Medications Medications Dose Ordered Sig/Bertha Route Start Time Stop Time Status Last Admin Dose Admin Ceftriaxone Sodium 1000 mg/ Sterile Water 10 ml @ 200 mls/hr ONCE ONCE IV 07/21/20 20:00 07/21/20 20:02 DC 07/21/20 20:37 200 MLS/HR Iohexol 100 ml ONCE ONCE IV 07/21/20 18:15 07/21/20 18:16 DC 07/21/20 18:28 100 ML Lactated Ringer's 1,000 ml @ 0 mls/hr Q0M ONCE IV 07/21/20 15:46 07/21/20 15:48 DC 07/21/20 16:11 0 MLS/HR Lactated Ringer's 1,000 ml @ 0 mls/hr Q0M ONCE IV 07/21/20 18:04 07/21/20 18:06 DC 07/21/20 19:06 0 MLS/HR Sodium Chloride 10 ml NEEDED PRN IV 07/21/20 18:15 07/21/20 18:28 10 ML Sodium Chloride 100 ml ONCE ONCE IV 07/21/20 18:15 07/21/20 18:16 DC 07/21/20 18:28 80 ML (SHANTEL MAST DO) Vital Signs/I&O 07/21/20 07/21/20 15:57 20:48 Temp 36.6 36.9 Pulse 130 97 Resp 22 16 B/P (MAP) 165/98 (120) 143/82 Pulse Ox 96 94 O2 Delivery Room Air (SHANTEL MAST DO) Vital Signs/I&O Capillary Refill : (RAKEL GRAY DO) Progress Note : Progress Note 1800--ASSUMED CARE FROM DR. GRAY, CT PENDING . PT IS FEELING BETTER AT THIS TIME, NO NAUSEA AND DIZZINESS IMPROVED RIGHT EYE HAS BEEN PATCHED. NO DETERIORATION IN PT'S CONDITION DURING ER STAY (SHANTEL MAST DO) ECG Initial ECG Impression Date: Jul 21, 2020 Initial ECG Impression Time: 20:36 Initial ECG Rate: 100 Initial ECG Rhythm: A Fib/Flutter Initial ECG Impression: Atrial Fibrillation (SHANTEL MAST DO) Diagnostic Imaging Diagonstic Imaging: Xray Plain Films/CT/US/NM/MRI: chest, abdomen Comments [place] NAME: SHARDA BLANDON [facility] REC#: [id number] PT STATUS: REG ER : 1940 PHYSICIAN: RAKEL GRAY DO ADMIT DATE: 07/21/20/ER Draft Date of Exam:07/21/20 ACUTE ABD SERIES INDICATION: Abdominal pain PA chest, supine and upright abdominal images are obtained. Lungs are clear. There is no intraperitoneal free air. Bowel gas pattern is normal. There are no pathologic masses or calcifications. IMPRESSION: No acute abnormalities in the abdomen. (RAKEL GRAY DO) Comments CT ABDOMEN/PELVIS--PER RADIOLOGIST REPORT AT 1919 FINDINGS: The lung bases are clear. Liver appears normal. The gallbladder is present. Pancreas appears normal. Common duct is not dilated. Portal vein is patent. Spleen is not enlarged. There is a sliding hiatal hernia. Adrenals are unremarkable. There are some cortical cysts on both kidneys. There is an extrarenal pelvis in the left kidney with some calculi in the dependent portion of the pelvis. Ureter is not dilated. Urinary bladder is normal. Uterus is surgically absent. Small bowel is not dilated. There is no evidence of appendicitis. There is no intraperitoneal free air or free fluid. Colon is unremarkable. 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 Reviewed: Reviewed by Me (SHANTEL MAST DO) Departure Communication (Admissions) 1954--SPOKE WITH DR. YAÑEZ, HOSPITALIST, ACCEPTS PT FOR ADMIT 1999--SPOKE WITH DR. JOHNSON, ENT, WHO SAW THE PT IN HIS OFFICE, AND SENT HER HERE. HE STATES THAT PT HAS BEEN REFERRED TO EYE AND HAS AN UPCOMING APPOINTMENT. (SHANTEL MAST DO) Impression Primary Impression: Sepsis Additional Impressions: UTI (urinary tract infection) Dizziness Chronic atrial fibrillation Ramos's palsy Shingles Dehydration Disposition: ADMITTED INPATIENT Condition: Improved Admissions Decision to Admit Reason: Admit from ER (General) Decision to Admit/Date: Jul 21, 2020 Time/Decision to Admit Time: 19:55 (SHANTEL MAST DO) Departure-Patient Inst. Referrals: KAROL SAHNI MD (PCP/Family) Primary Care Physician RAKEL GRAY DO Jul 21, 2020 15:45 SHANTEL MAST DO Jul 21, 2020 18:08
[2020-07-21] MEDS ORDERED: LACTATED RINGERS 1,000 ML IV ONE ×2 (15:46→18:04)
[2020-07-21] MEDS ORDERED: METOCLOPRAMIDE INJ 10 MG/2 ML (REGLAN) IVP STA (15:46)
[2020-07-21 16:43] LABS: BASOPHILS % (AUTO) 0 % (0-10); EOSINOPHILS % (AUTO) 0 % (0-10); HEMATOCRIT 53 % (35-52); HEMOGLOBIN 18.6 G/DL (11.5-16.0); LYMPHOCYTES # (AUTO) 0.7 X 10^3 (1.0-4.0); LYMPHOCYTES % (AUTO) 4 % (12-44); MEAN CORPUSCULAR HEMOGLOBIN 30 PG (25-34); MEAN CORPUSCULAR HGB CONC 35 G/DL (32-36); MEAN CORPUSCULAR VOLUME 86 FL (80-99); MEAN PLATELET VOLUME 10.5 FL (7.4-10.4); MONOCYTES # (AUTO) 0.9 X 10^3 (0.0-1.0); MONOCYTES % (AUTO) 5 % (0-12); NEUTROPHILS # (AUTO) 17.3 X 10^3 (1.8-7.8); NEUTROPHILS % (AUTO) 92 % (42-75); PLATELET COUNT 248 10^3/uL (130-400); RED CELL DISTRIBUTION WIDTH 17.2 % (10.0-14.5)
--- NOTE | 2020-07-21 16:58 | Diagnostic Imaging Report ---
INDICATION: Abdominal pain PA chest, supine and upright abdominal images are obtained. Lungs are clear. There is no intraperitoneal free air. Bowel gas pattern is normal. There are no pathologic masses or calcifications. IMPRESSION: No acute abnormalities in the abdomen. Dictated by: Dictated on workstation # [id number]
[2020-07-21 17:03] LABS: ALBUMIN 4.2 GM/DL (3.2-4.5); BILIRUBIN,TOTAL 1.2 MG/DL (0.1-1.0); CALCIUM 9.8 MG/DL (8.5-10.1); CREATININE SERUM 1.05 MG/DL (0.60-1.30); POTASSIUM 4.1 MMOL/L (3.6-5.0); TOTAL PROTEIN 7.4 GM/DL (6.4-8.2)
[2020-07-21] MEDS ORDERED: FAMOTIDINE 20MG/2ML IV (PEPCID) IV STA (17:13)
[2020-07-21 17:20] LABS: LYMPHOCYTES % (MANUAL) 2 %; MONOCYTES % (MANUAL) 6 %; NEUTROPHILS % (MANUAL) 92 %; RBC MORPH NORMAL
[2020-07-21] MEDS ORDERED: NS 100 ML (IVPB) BAG IV ONE (18:15)
[2020-07-21] MEDS ORDERED: HOLD METFORMIN - RECEIVED CONTRAST 20 ML VIAL IV SCH (18:15)
[2020-07-21] MEDS ORDERED: CATHETER FLUSH 10 ML SYR IV PRN (18:15)
[2020-07-21] MEDS ORDERED: IOHEXOL 350 MG/ML 100 ML (OMNIPAQUE 350) VIAL IV ONE (18:15)
[2020-07-21 18:51] LABS: MAGNESIUM 1.7 MG/DL (1.6-2.4); TSH (THYROID ANALYZER) 1.37 UIU/ML (0.35-4.94)
--- NOTE | 2020-07-21 19:05 | Diagnostic Imaging Report ---
PROCEDURE: CT abdomen and pelvis with contrast. TECHNIQUE: Multiple contiguous axial images were obtained through the abdomen and pelvis after administration of intravenous contrast. Auto Exposure Controls were utilized during the CT exam to meet ALARA standards for radiation dose reduction. INDICATION: Leukocytosis, abdominal pain. FINDINGS: The lung bases are clear. Liver appears normal. The gallbladder is present. Pancreas appears normal. Common duct is not dilated. Portal vein is patent. Spleen is not enlarged. There is a sliding hiatal hernia. Adrenals are unremarkable. There are some cortical cysts on both kidneys. There is an extrarenal pelvis in the left kidney with some calculi in the dependent portion of the pelvis. Ureter is not dilated. Urinary bladder is normal. Uterus is surgically absent. Small bowel is not dilated. There is no evidence of appendicitis. There is no intraperitoneal free air or free fluid. Colon is unremarkable. 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 Dictated by: Dictated on workstation # [id number]
[2020-07-21 19:43] LABS: BILIRUBIN,URINE NEGATIVE (NEGATIVE); CLARITY,URINE CLOUDY; COLOR,URINE YELLOW; GLUCOSE, URINE (UA) NEGATIVE (NEGATIVE); KETONES,URINE NEGATIVE (NEGATIVE); LEUKOCYTE ESTERASE ,URINE 2+ (NEGATIVE); NITRITE,URINE NEGATIVE (NEGATIVE); PROTEIN,URINE TRACE (NEGATIVE)
[2020-07-21 19:52] LABS: BACTERIA,URINE TRACE /HPF; RBC,URINE RARE /HPF; SQUAMOUS EPITHELIAL CELL,UR 0-2 /HPF; WBC,URINE TNTC /HPF
[2020-07-21] MEDS ORDERED: cefTRIAXone FOR IV USE 1,000 MG in WATER (STERILE) FOR INJECTION 10 ML IV ONE (20:00)
[2020-07-21 20:18] LABS: PROTHROMBIN TIME PATIENT 13.7 SEC (12.2-14.7)
[2020-07-21] MEDS ORDERED: cefTRIAXone 1,000 MG IV (ROCEPHIN) VIAL ONE (20:33)
[2020-07-21] MEDS ORDERED: WATER (STERILE) FOR INJECTION 10 ML ONE (20:33)
--- NOTE | 2020-07-21 20:55 | NUR ---
pt's family updated on admission status, room number.
--- NOTE | 2020-07-21 21:00 | NUR ---
SHARDA BLANDON Carolynn admitted to room 409-1, with an admitting diagnosis of SEPSIS, GENERALZIED WEAKNESS, BORJAS'S PALSY, SHINGLES, UTI, L RENAL STONES/UPJ OBSTRUCTION, on 07/21/20 from [place] via [facility], accompanied by STAFF.SHARDA BLANDON introduced to surroundings, call light, bed controls, phone, TV, temperature control, lights, meal times, smoking policy, visitor policy, side rail policy, bathrooms and showers. Patient Rights given to patient in the handbook. SHARDA BLANDON verbalizes understanding that [facility] is not responsible for the loss or damage to any personal effects or valuables that are kept in the patients posession during their hospitalization. SHARDA BLANDON verbalizes understanding of Interdisciplinary Patient Education. Patient and/or family were informed about the Rapid Response Team and its purpose.
[2020-07-21 21:12] VITALS: BP 175/95
[2020-07-21] MEDS ORDERED: ACETAMINOPHEN 500 MG TAB (TYLENOL) PO PRN (21:45)
--- NOTE | 2020-07-21 22:34 | NUR ---
critical lactic acid of 2.47 received at 2225, Dr. Reno notified at 2230, ordered to repeat lactic acid with morning labs and continue IV fluids. this nurse also notified Dr. Reno that pt states she usually takes 5mg eliquis BID, and has not taken it at all today. Dr Reno ordered to restart it and give 1 dose now
[2020-07-21] MEDS ORDERED: APIXABAN 5 MG (ELIQUIS) TABLET ONE (22:36)
[2020-07-21] MEDS: APIXABAN 5 MG (ELIQUIS) TABLET PO SCH (22:43)
[2020-07-21] MEDS: ONDANSETRON 4 MG/2 ML (SDV) Z0FRAN IV PRN (22:49)
[2020-07-21] MEDS: D5 1/2 NS W/KCL 20 MEQ/L 1,000 ML IV SCH (23:13)
[2020-07-22] VITALS (11 sets, daily range): BP systolic 137–189; BP diastolic 66–100
[2020-07-22 05:56] LABS: BASOPHILS % (AUTO) 0 % (0-10); EOSINOPHILS # (AUTO) 0.1 10^3/uL (0.0-0.3); EOSINOPHILS % (AUTO) 1 % (0-10); HEMATOCRIT 43 % (35-52); HEMOGLOBIN 14.8 G/DL (11.5-16.0); LYMPHOCYTES % (AUTO) 9 % (12-44); MEAN CORPUSCULAR HEMOGLOBIN 30 PG (25-34); MEAN CORPUSCULAR HGB CONC 34 G/DL (32-36); MEAN CORPUSCULAR VOLUME 88 FL (80-99); MEAN PLATELET VOLUME 10.1 FL (7.4-10.4); MONOCYTES # (AUTO) 1.1 X 10^3 (0.0-1.0); MONOCYTES % (AUTO) 10 % (0-12); NEUTROPHILS # (AUTO) 8.8 X 10^3 (1.8-7.8); NEUTROPHILS % (AUTO) 81 % (42-75); PLATELET COUNT 218 10^3/uL (130-400); RED CELL DISTRIBUTION WIDTH 16.6 % (10.0-14.5); WHITE BLOOD COUNT 10.9 10^3/uL (4.3-11.0)
[2020-07-22] MEDS: D5 1/2 NS W/KCL 20 MEQ/L 1,000 ML IV SCH ×3 (05:58→20:12)
[2020-07-22] MEDS: ONDANSETRON 4 MG/2 ML (SDV) Z0FRAN IV PRN ×3 (05:59→18:20)
[2020-07-22 06:15] LABS: ALANINE AMINOTRANSFERASE 10 U/L (0-55); ALBUMIN 3.2 GM/DL (3.2-4.5); ALKALINE PHOSPHATASE 66 U/L (40-136); BILIRUBIN,TOTAL 0.7 MG/DL (0.1-1.0); BUN/CREATININE RATIO 19; CALCIUM 8.4 MG/DL (8.5-10.1); CARBON DIOXIDE 21 MMOL/L (21-32); CHLORIDE 104 MMOL/L (98-107); CREATININE SERUM 0.81 MG/DL (0.60-1.30); GFR ESTIMATED > 60; GLUCOSE 136 MG/DL (70-105); POTASSIUM 4.3 MMOL/L (3.6-5.0); SODIUM 135 MMOL/L (135-145); TOTAL PROTEIN 5.8 GM/DL (6.4-8.2)
[2020-07-22] MEDS: APIXABAN 5 MG (ELIQUIS) TABLET PO SCH ×2 (08:02→20:12)
[2020-07-22] MEDS: PROMETHAZINE INJ 25 MG/ML (PHENERGAN) AMP IV PRN ×3 (08:02→20:13)
--- NOTE | 2020-07-22 08:45 | NUR ---
BP rechecked at this time by this RN currently 170/[address] Reno. instructed this RN to restart home blood pressure medications at this time. home Lisinopril and Metoprol restarted and sent to pharmacy for labeling.
[2020-07-22] MEDS ORDERED: PATIENT MAY USE OWN MEDS, ALL MC SCH (09:00)
[2020-07-22] MEDS ORDERED: HYDROCHLOROTHIAZIDE PO SCH (09:18)
[2020-07-22] MEDS ORDERED: LISINOPRIL PO SCH (09:18)
[2020-07-22] MEDS: meTOproloL SUCCINATE 50 MG (TOPROL XL) TAB PO SCH (09:47)
[2020-07-22] MEDS: LISINOPRIL HCTZ PO SCH (09:47)
--- NOTE | 2020-07-22 12:46 | History & Physical-Hospitalist ---
History of Present Illness HPI/Chief Complaint Nabila Torres is an 79 year old female with PMH HTN, hypothyroidism, atrial fibrillation on chronic anticoagulation, who presented with dizziness. She had been hospitalized recently and diagnosed with Finley Omalley Syndrome. She recently completed her course of antivirals for herpes zoster. She reports that she has been feeling dizzy for a few weeks. She reports feeling nauseous for a few days and has not been able to eat or drink much. She denies any fevers or chills. She denies dysuria. She has been urinating less frequently. She denies any shortness of breath or cough. She denies any abdominal pain. She denies diarrhea. She has tried multiple medications to treat vertigo without significant results. Source: patient Exam Limitations: no limitations Date Seen 07/22/20 Time Seen by a Provider: 10:10 Attending Physician Lima Yañez MD PCP Yariel Mendoza MD Referring Physician Date of Admission Jul 21, 2020 at 20:00 Home Medications & Allergies Home Medications Reviewed patient Home Medication Reconciliation performed by pharmacy medication reconciliations tax technician and/or nursing. Patients Allergies have been reviewed. Allergies Allergies Coded Allergies Izfiglu-Ujs-Jii Reductase Inhibitor (Verified Allergy, Intermediate, WEAKNESS, 08/19/19) aspirin (Unverified Allergy, Mild, HIVES, 08/19/19) methocarbamol (Unverified Allergy, Mild, HIVES, 08/19/19) Past Nadwavn-Otrbdo-Bmlbda Hx Past Med/Social Hx: Reviewed Nursing Past Med/Soc Hx Patient Social History Alcohol Use: Denies Use Recreational Drug Use: No Smoking Status: Never a Smoker 2nd Hand Smoke Exposure: No Recent Foreign Travel: No Contact w/other who traveled: No Recent Hopitalizations: Yes (BACK SURGERY MAY 2019) Recent Infectious Disease Expo: No Immunizations Up To Date Date of Pneumonia Vaccine: Sep 08, 2017 Date of Influenza Vaccine: Aug 18, 2018 Seasonal Allergies Seasonal Allergies: Yes Past Medical History Surgeries: Bladder Surgery, Hysterectomy, Thyroidectomy Currently Using CPAP: No Currently Using BIPAP: No Cardiac: Angina, Atrial Fibrillation, Coronary Artery Disease, Hypertension Reproductive: No Sexually Transmitted Disease: No HIV/AIDS: No Genitourinary: Kidney Stones, UTI-Chronic Gastrointestinal: Chronic Diarrhea Musculoskeletal: Arthritis Endocrine: Hypothyroidsim Loss of Vision: Denies Hearing Impairment: Denies Psychosocial: Anxiety History of Blood Disorders: No Adverse Reaction to Blood Key: No (HAS HAD BLOOD WITH NO REACTION) Family History Cardiovascular disease G8 SISTER Diabetes mellitus 19 FATHER G8 BROTHER G8 SISTER Hypertension 19 FATHER G8 SISTER Myocardial infarction 19 FATHER G8 BROTHER Diabetes, Hypertension Review of Systems Constitutional: dizziness Respiratory: no symptoms reported Cardiovascular: no symptoms reported Gastrointestinal: nausea Genitourinary: decreased output Musculoskeletal: no symptoms reported Skin: no symptoms reported Psychiatric/Neurological: No Symptoms Reported Physical Exam Physical Exam Vital Signs Vital Signs - First Documented 07/21/20 07/21/20 15:57 20:48 Temp 36.6 Pulse 130 Resp 22 B/P (MAP) 165/98 (120) Pulse Ox 96 O2 Delivery Room Air Capillary Refill : Less Than 3 Seconds Height, Weight, BMI Height: 5'2.00" Weight: 172lbs. 0.0oz. 78.710299lf; 32.93 BMI Method: General Appearance: No Apparent Distress, Obese HEENT: Pharynx Normal, Other (eye patch on right eye) Neck: Normal Inspection, Supple Respiratory: Lungs Clear, Normal Breath Sounds, No Respiratory Distress Cardiovascular: No Murmur, Irregularly Irregular Gastrointestinal: Normal Bowel Sounds, Non Tender, Soft Extremity: Normal Inspection, Non Tender, No Pedal Edema Neurologic/Psychiatric: Alert, Oriented x3, No Motor/Sensory Deficits, Normal Mood/Affect Skin: Normal Color, Warm/Dry Results Results/Procedures Labs Laboratory Tests 07/21/20 16:08 07/22/20 05:21 07/22/20 05:24 Patient resulted labs reviewed. Imaging: Reviewed Imaging Report Assessment/Plan Admission Diagnosis Severe sepsis due to UTI Admission Status: Inpatient Order (span 2 midnights) Reason for Inpatient Admission: UTI requring IV antibiotics and fluids Assessment and Plan Severe sepsis UTI Lactic acidosis Acute kidney injury Dehydration -SIRS+ with leukocytosis and tachycardia -UA indicative of UTI -Urine culture pending -Lactic acid elevated -Creatinine slighly elevated -Rocephin for UTI -IV fluids for dehydration Vertigo -Meclizine as needed Atrial fibrillation -continue Diltiazem -Continue Eliquis HTN -Continue Lisinopril and Metoprolol Hypothyroidism -continue Levothyroxine DVT Prophylaxis: already receiving therapeutic anticoagulation Diagnosis/Problems Diagnosis/Problems (1) UTI (urinary tract infection) Status: Acute (2) Severe sepsis Status: Acute (3) Lactic acidosis Status: Acute (4) Acute kidney injury Status: Acute (5) Dehydration Status: Acute (6) Dizziness Status: Acute (7) Atrial fibrillation Status: Chronic Clinical Quality Measures DVT/VTE Risk/Contraindication: Risk Factor Score Per Nursin RFS Level Per Nursing on Admit: 4+=Very High LIMA YAÑEZ MD Jul 22, 2020 12:46
[2020-07-22] MEDS ORDERED: hydrALAZINE (APESOLINE) 20 MG/ML VIAL IV PRN (17:15)
--- NOTE | 2020-07-22 18:12 | NUR ---
cardizem 90MG not given due to pharmacy out of hospital to verify and convert medication. This RN and adjuster leader RN attempted to pull cardizem 90 tablet to administer to patient and we were unable to find correct dosage of medication in [facility] at this time. BP rechecked by this RN currently 165/92 heart rate 85BPM. Cardizem will be administered once verified
[2020-07-22] MEDS: MECLIZINE 25 MG (ANTIVERT) TAB PO PRN (19:31)
[2020-07-22] MEDS: cefTRIAXone 1,000 MG/SWFI 10 ML IV PUSH IV SCH ×2 (20:12)
[2020-07-22] MEDS: AMITRIPTYLINE 10 MG (ELAVIL) TAB PO SCH (20:12)
[2020-07-23] VITALS (9 sets, daily range): BP systolic 133–180; BP diastolic 75–99
[2020-07-23] MEDS: ONDANSETRON 4 MG/2 ML (SDV) Z0FRAN IV PRN ×4 (00:07→20:38)
[2020-07-23] MEDS: PROMETHAZINE INJ 25 MG/ML (PHENERGAN) AMP IV PRN ×3 (03:04→23:10)
[2020-07-23] MEDS: D5 1/2 NS W/KCL 20 MEQ/L 1,000 ML IV SCH (04:20)
[2020-07-23] MEDS: LEVOTHYROXINE 112 MCG (LEVOTHROID) TAB PO SCH (06:47)
[2020-07-23] MEDS: lisINopril 40 MG (PRINIVIL) TABLET PO SCH (07:54)
[2020-07-23] MEDS: APIXABAN 5 MG (ELIQUIS) TABLET PO SCH ×2 (08:41→20:38)
[2020-07-23] MEDS: meTOproloL SUCCINATE 50 MG (TOPROL XL) TAB PO SCH (08:42)
[2020-07-23] MEDS: LISINOPRIL HCTZ PO SCH (08:42)
[2020-07-23 08:53] LABS: BASOPHILS % (AUTO) 0 % (0-10); EOSINOPHILS % (AUTO) 0 % (0-10); HEMATOCRIT 39 % (35-52); HEMOGLOBIN 12.9 G/DL (11.5-16.0); LYMPHOCYTES # (AUTO) 0.7 X 10^3 (1.0-4.0); LYMPHOCYTES % (AUTO) 7 % (12-44); MEAN CORPUSCULAR HEMOGLOBIN 30 PG (25-34); MEAN CORPUSCULAR HGB CONC 33 G/DL (32-36); MEAN CORPUSCULAR VOLUME 91 FL (80-99); MEAN PLATELET VOLUME 9.8 FL (7.4-10.4); MONOCYTES # (AUTO) 0.8 X 10^3 (0.0-1.0); MONOCYTES % (AUTO) 9 % (0-12); NEUTROPHILS # (AUTO) 7.4 X 10^3 (1.8-7.8); NEUTROPHILS % (AUTO) 83 % (42-75); PLATELET COUNT 176 10^3/uL (130-400); RED CELL DISTRIBUTION WIDTH 16.6 % (10.0-14.5); WHITE BLOOD COUNT 8.9 10^3/uL (4.3-11.0)
[2020-07-23 10:19] LABS: CALCIUM 8.4 MG/DL (8.5-10.1); CREATININE SERUM 1.22 MG/DL (0.60-1.30); MAGNESIUM 1.8 MG/DL (1.6-2.4); POTASSIUM 3.8 MMOL/L (3.6-5.0)
--- NOTE | 2020-07-23 12:58 | Progress Note - Hospitalist ---
Subjective HPI/CC On Admission Date Seen by Provider: Jul 23, 2020 Time Seen by Provider: 11:00 Nabila Torres is an 79 year old female with PMH HTN, hypothyroidism, atrial fibrillation on chronic anticoagulation, who presented with dizziness. She had been hospitalized recently and diagnosed with Finley Omalley Syndrome. She recently completed her course of antivirals for herpes zoster. She reports that she has been feeling dizzy for a few weeks. She reports feeling nauseous for a few days and has not been able to eat or drink much. She denies any fevers or chills. She denies dysuria. She has been urinating less frequently. She denies any shortness of breath or cough. She denies any abdominal pain. She denies diarrhea. She has tried multiple medications to treat vertigo without significant results. Subjective/Events-last exam she reports that she thinks she is feeling a little bit better today. She is sitting in her bedside chair. She continues to have dizziness. She says she had dry heaves all night. She denies any fevers or chills. She denies any chest pain or shortness of breath. She denies any abdominal pain. Focused Exam Lactate Level 07/21/20 19:10: Lactic Acid Level 3.44*H 07/21/20 21:50: Lactic Acid Level 2.47*H 07/22/20 05:21: Lactic Acid Level 1.06 Objective Exam Vital Signs Vital Signs Date Time Temp Pulse Resp B/P (MAP) Pulse Ox O2 Delivery O2 Flow Rate FiO2 07/23/20 12:35 103 07/23/20 11:36 36.4 18 144/96 (112) 95 Room Air Capillary Refill : Less Than 3 Seconds General Appearance: Anxious, Chronically ill, Mild Distress (uncomfortable) Neck: Normal Inspection, Supple Respiratory: Lungs Clear, Normal Breath Sounds, No Respiratory Distress Cardiovascular: Regular Rate, Rhythm, No Edema, No Murmur Gastrointestinal: Normal Bowel Sounds, Non Tender, Soft Extremity: Normal Inspection, Non Tender, No Pedal Edema Neurologic/Psychiatric: Alert, Oriented x3, Normal Mood/Affect Skin: Normal Color, Warm/Dry Results/Procedures Lab Laboratory Tests 07/23/20 08:47 07/23/20 09:51 Patient resulted labs reviewed. Imaging: Reviewed Imaging Report Assessment/Plan Assessment and Plan Assess & Plan/Chief Complaint UTI Acute kidney injury -SIRS+ with leukocytosis and tachycardia -UA indicative of UTI -Urine culture pending -Creatinine slighly elevated -Rocephin for UTI -IV fluids Vertigo -Meclizine as needed Atrial fibrillation -continue Diltiazem -Continue Eliquis HTN -Continue Lisinopril and Metoprolol Hypothyroidism -continue Levothyroxine DVT Prophylaxis: already receiving therapeutic anticoagulation Lactic acidosis, resolved Severe sepsis, resolved Dehydration, resolved Diagnosis/Problems Diagnosis/Problems (1) UTI (urinary tract infection) Status: Acute (2) Severe sepsis Status: Acute (3) Lactic acidosis Status: Acute (4) Acute kidney injury Status: Acute (5) Dehydration Status: Acute (6) Dizziness Status: Acute (7) Atrial fibrillation Status: Chronic Clinical Quality Measures DVT/VTE Risk/Contraindication: Risk Factor Score Per Nursin RFS Level Per Nursing on Admit: 4+=Very High LIMA YAÑEZ MD Jul 23, 2020 12:58
[2020-07-23] MEDS: AMITRIPTYLINE 10 MG (ELAVIL) TAB PO SCH (20:38)
[2020-07-23] MEDS: cefTRIAXone 1,000 MG/SWFI 10 ML IV PUSH IV SCH ×2 (20:38)
[2020-07-23] MEDS: MECLIZINE 25 MG (ANTIVERT) TAB PO PRN (20:39)
--- NOTE | 2020-07-23 21:09 | NUR ---
1950-GON[facility] CATHETER REMOVED THIS AFTERNOON ON DAY SHIFT. PATIENT HAS NOT VOIDED SINCE REMOVAL. BLADDER IS SLIGHTLY DISTENDED AND PALPABLE. PT STATES THAT SHE HAS THE FEELING THAT SHE HAS TO URINATE, BUT UNSUCCESSFUL WITH MULTIPLE ATTEMPTS. 1999- BLADDER SCAN SHOWS 321 ML OF URINE IN THE BLADDER. 2019- DR. YAÑEZ NOTIFIED. NEW ORDERS TO BLADDER SCAN PRN AND STRAIGHT CATH IF >500 ML. WILL CONTINUE TO MONITOR.
[2020-07-24] MEDS: ONDANSETRON 4 MG/2 ML (SDV) Z0FRAN IV PRN ×3 (02:44→18:09)
[2020-07-24 03:17] VITALS: BP 136/72
[2020-07-24] MEDS: PROMETHAZINE INJ 25 MG/ML (PHENERGAN) AMP IV PRN ×2 (06:27→21:00)
[2020-07-24] MEDS: LEVOTHYROXINE 112 MCG (LEVOTHROID) TAB PO SCH (06:27)
[2020-07-24 08:00] VITALS: BP 148/84
[2020-07-24] MEDS: APIXABAN 5 MG (ELIQUIS) TABLET PO SCH ×2 (09:42→20:48)
[2020-07-24] MEDS: meTOproloL SUCCINATE 50 MG (TOPROL XL) TAB PO SCH (09:44)
[2020-07-24] MEDS: LISINOPRIL HCTZ PO SCH (09:44)
[2020-07-24] MEDS: lisINopril 40 MG (PRINIVIL) TABLET PO SCH (09:45)
[2020-07-24] MEDS ORDERED: CIPR2.5D2 OD (11:04)
--- NOTE | 2020-07-24 11:09 | NUR ---
I SPOKE WITH THE PATIENT TO COMPLETE THE MED REC PATIENT USES LEVOTHYROXINE 100MCG AND LEVOTHYROXINE 125MCG ON ALTERNATING DAYS OTC: TYLENOL
[2020-07-24] MEDS ORDERED: SCOPOLAMINE 1.5 MG (TRANSDERM-SCOP) PATCH TD ONE (11:30)
[2020-07-24 12:00] VITALS: BP 150/94
[2020-07-24] MEDS ORDERED: GADOBUTROL 10 MMOL/10 ML (GADAVIST) VIAL IV ONE (12:30)
--- NOTE | 2020-07-24 12:45 | Progress Note - Hospitalist ---
Subjective HPI/CC On Admission Date Seen by Provider: Jul 24, 2020 Time Seen by Provider: 12:42 Nabila Torres is an 79 year old female with PMH HTN, hypothyroidism, atrial fibrillation on chronic anticoagulation, who presented with dizziness. She had been hospitalized recently and diagnosed with Finley Omalley Syndrome. She recently completed her course of antivirals for herpes zoster. She reports that she has been feeling dizzy for a few weeks. She reports feeling nauseous for a few days and has not been able to eat or drink much. She denies any fevers or chills. She denies dysuria. She has been urinating less frequently. She denies any shortness of breath or cough. She denies any abdominal pain. She denies diarrhea. She has tried multiple medications to treat vertigo without significant results. Subjective/Events-last exam Pt reports still feeling very dizzy. She is laying in bed with a washcloth over her eye and her right eye patched. Focused Exam Lactate Level 07/21/20 19:10: Lactic Acid Level 3.44*H 07/21/20 21:50: Lactic Acid Level 2.47*H 07/22/20 05:21: Lactic Acid Level 1.06 Objective Exam Vital Signs Vital Signs Date Time Temp Pulse Resp B/P (MAP) Pulse Ox O2 Delivery O2 Flow Rate FiO2 07/24/20 08:00 36.1 70 18 148/84 (105) 95 Room Air Capillary Refill : Less Than 3 Seconds General Appearance: WD/WN, Obese, Other (ill appearing) HEENT: Other (eye patch covering right eye) Respiratory: Lungs Clear, No Respiratory Distress Cardiovascular: Regular Rate, Rhythm, No Murmur Gastrointestinal: Normal Bowel Sounds, Non Tender, Soft Neurologic/Psychiatric: Alert, Oriented x3 Results/Procedures Lab Patient resulted labs reviewed. Imaging: Reviewed Imaging Report Assessment/Plan Assessment and Plan Assess & Plan/Chief Complaint UTI Acute kidney injury -UA indicative of UTI -Urine culture with no growth though -Rocephin for UTI to complete 3 days tonight -IV fluids Vertigo-intractable -Meclizine as needed - Not improving - Discussed with Dr Quintanilla- recommends repeat MRI, ordered, and will see tomorrow - Will add scopolamine patch Atrial fibrillation -continue Diltiazem -Continue Eliquis HTN -Continue Lisinopril and Metoprolol Hypothyroidism -continue Levothyroxine DVT Prophylaxis: already receiving therapeutic anticoagulation Lactic acidosis, resolved Severe sepsis, resolved Dehydration, resolved Clinical Quality Measures DVT/VTE Risk/Contraindication: Risk Factor Score Per Nursin RFS Level Per Nursing on Admit: 4+=Very High JOSE F GONZALEZ MD Jul 24, 2020 12:45
--- NOTE | 2020-07-24 12:58 | Diagnostic Imaging Report ---
PROCEDURE: MR imaging of the brain with and without contrast. TECHNIQUE: Multiplanar, multisequence MR imaging of the brain was performed with and without contrast. INDICATION: Dizziness and shingles in the right ear region. COMPARISON: Prior MRI of the brain from 07/06/2020. FINDINGS: The ventricular size and sulcal pattern appear stable. Fairly extensive periventricular and subcortical white matter signal abnormalities are noted, similar to the prior exam. The normal expected flow-voids within the carotid siphons are seen. No diffusion restriction is identified to suggest acute ischemia. No acute intra-axial or extra-axial hemorrhage is detected. No abnormal enhancement is identified following contrast administration. The corpus callosum is unremarkable. The sella and parasellar structures are unremarkable. The 7th and 8th cranial nerves appear unremarkable. No CP angle mass is detected. IMPRESSION: Overall stable MRI of the brain with and without contrast when compared to the examination from 07/06/2020. There are changes of chronic microvascular ischemia. No acute abnormality is detected. Dictated by: Dictated on workstation # [id number]
--- NOTE | 2020-07-24 13:22 | NUR ---
"RD ASSESSMENT PMHx: HTN; afib; hypothyroidism; CAD; chronic UTI; chronic diarrhea PT INTERACTION: Pt was awake and pleasant during nutrition assessment. Pt states current appetite is poor, and has been this way for about 1week. Note avg PO intake <10% x2d, per chart review. Pt states following a regular diet at home, and has no issues with chewing/swallowing food. Pt states some recent issues with nausea, but not vomiting. Pt states no recent issues with constipation, or diarrhea, and that her last BM was 07/22. Note pt not currently on bowel regimen per chart review. Pt states no recent wt changes. Note unable to determine recent wt hx, per chart review. ABNORMAL NUTRITION-RELATED LAB VALUES LOW: Ca 8.4; HIGH: BUN 19; glu 125 Est. kcal needs: 1275 kcal | 15 kcal/kg Est. Pro needs: 68 g Pro | 0.8 g Pro/kg PES STATEMENT: Inadequate oral intake (NI-2.1) related to loss of appetite | nausea as evidenced by pt interview | avg PO intake <10% x2d INTERVENTION: Continue with current diet order of Clear Liquid diet. Would recommend diet advancement when medically able and as tolerated. Pt may benefit from nutrition supplementation if PO intake remains low. Encouraged pt to eat when able. Will continue to follow and reassess as pt needs, intake, and status change. MONITOR/EVALUATE: PO Intake; Plan of Care; Hydration Status; Weight Status; Lab Values Juan Pruitt, MS, RD, LD"
--- NOTE | 2020-07-24 14:25 | NUR ---
CM/SS attempted to visit with patient for discharge planning. Patient was resting with wash cloth over her eyes. CM/SS asked patient if she wanted this sw to come tomorrow to let patient rest. She verbalized yes. CM/SS will continue to follow for discharge planning.
[2020-07-24] MEDS ORDERED: SCOPOLAMINE 1.5 MG (TRANSDERM-SCOP) PATCH ONE (14:46)
--- NOTE | 2020-07-24 14:50 | NUR ---
Attempted to visit pt, pt was lying in bed with wash clothe over eyes, nurse advised pt was feeling poorly, will monitor.
[2020-07-24 15:56] VITALS: BP 168/90
[2020-07-24 20:30] VITALS: BP 142/87
[2020-07-24] MEDS: cefTRIAXone 1,000 MG/SWFI 10 ML IV PUSH IV SCH ×2 (20:46)
[2020-07-24] MEDS: AMITRIPTYLINE 10 MG (ELAVIL) TAB PO SCH (20:46)
[2020-07-24] MEDS: MECLIZINE 25 MG (ANTIVERT) TAB PO PRN (20:46)
[2020-07-25] VITALS (7 sets, daily range): BP systolic 103–158; BP diastolic 60–87
[2020-07-25] MEDS: ONDANSETRON 4 MG/2 ML (SDV) Z0FRAN IV PRN ×2 (01:49→21:11)
[2020-07-25] MEDS: LEVOTHYROXINE 112 MCG (LEVOTHROID) TAB PO SCH (05:56)
--- NOTE | 2020-07-25 06:27 | Progress Note ---
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
[2020-07-25] MEDS: lisINopril 40 MG (PRINIVIL) TABLET PO SCH (08:11)
[2020-07-25] MEDS: meTOproloL SUCCINATE 50 MG (TOPROL XL) TAB PO SCH (08:15)
[2020-07-25] MEDS: APIXABAN 5 MG (ELIQUIS) TABLET PO SCH ×2 (08:15→21:11)
[2020-07-25] MEDS: LISINOPRIL HCTZ PO SCH (08:16)
[2020-07-25] MEDS: PROMETHAZINE INJ 25 MG/ML (PHENERGAN) AMP IV PRN (09:57)
--- NOTE | 2020-07-25 10:43 | NUR ---
CM/SS follow up. Patient was in bed with wash cloth over her eyes but was able to talk about discharge planning. The patient's was present at bedside. Home: The patient and her live together alone at home. The patient reports that when she is not having these "episodes" she is able to ambulate independently and complete her daily living activities. When she is having her episode, she reports having to use a walker for balance and keeping her steady. The patient's states that during that time he helps with bathing and other daily living activities. The patient's states that they do not have any stairs outside/inside of the home. They have a shower chair and grab bars around the toilet and shower. Home Health: The patient reports that she is not currently on service with a home health agency but has been in the past. The patient has utilized [facility] when she had her knee replacements. The patient and are both willing to have home health if needed. Homemaker services: The patient's reports that he has been doing the house cleaning, cooking, and dishes. He states that lately he is worn out and has "let the house go". CM/SS discussed homemaker services and resources. CM/SS provided the patient's with the phone number and personal injury specialist for [facility] in [place]. He verbalized understanding and stated he would look into it. Additional Resources: CM/SS gave the patient's a resource sheet that contained additional resources for food delivery services, caregiving, assisted living, and long-term. The patient verbalized understanding. Supports: The patient reports having a good support system in place. The patient and her have been for 62 years. He states that he is the primary caregiver for patient and assist with her needs. He reports that they have a adult son who can provide additional support along with grandchildren, and the patient's siblings. CM/SS will continue to follow.
--- NOTE | 2020-07-25 11:20 | Progress Note - Hospitalist ---
Subjective HPI/CC On Admission Date Seen by Provider: Jul 25, 2020 Time Seen by Provider: 11:16 Nabila Torres is an 79 year old female with PMH HTN, hypothyroidism, atrial fibrillation on chronic anticoagulation, who presented with dizziness. She had been hospitalized recently and diagnosed with Finley Omalley Syndrome. She recently completed her course of antivirals for herpes zoster. She reports that she has been feeling dizzy for a few weeks. She reports feeling nauseous for a few days and has not been able to eat or drink much. She denies any fevers or chills. She denies dysuria. She has been urinating less frequently. She denies any shortness of breath or cough. She denies any abdominal pain. She denies diarrhea. She has tried multiple medications to treat vertigo without significant results. Subjective/Events-last exam Pt reports feeling about the same yesterday. Has eye patch off today but still laying in bed with washcloth on. Objective Exam Vital Signs Vital Signs Date Time Temp Pulse Resp B/P (MAP) Pulse Ox O2 Delivery O2 Flow Rate FiO2 07/25/20 08:00 95 Room Air 07/25/20 08:00 36.1 70 16 136/86 (103) Capillary Refill : Less Than 3 Seconds General Appearance: WD/WN, Other (laying in bed, appears to not feel well) Respiratory: Lungs Clear, No Respiratory Distress Cardiovascular: Regular Rate, Rhythm, No Murmur Gastrointestinal: Normal Bowel Sounds, Non Tender, Soft Neurologic/Psychiatric: Alert, Oriented x3 Results/Procedures Lab Patient resulted labs reviewed. Imaging: Reviewed Imaging Report Assessment/Plan Assessment and Plan Assess & Plan/Chief Complaint Vertigo-intractable - Meclizine as needed - Not improving, will start IV acyclovir - Repeat MRI without significant change - Discussed with Dr Quintanilla who saw in consultation, appreciate help with this complex case - Swing bed eval for PT/OT and IV acyclovir course UTI Acute kidney injury -UA indicative of UTI -Urine culture with no growth though -Rocephin course completed for UTI -IV fluids - Labs pending Atrial fibrillation -continue Diltiazem -Continue Eliquis HTN -Continue Lisinopril and Metoprolol Hypothyroidism -continue Levothyroxine DVT Prophylaxis: already receiving therapeutic anticoagulation Lactic acidosis, resolved Severe sepsis, resolved Dehydration, resolved Diagnosis/Problems Diagnosis/Problems (1) Acute kidney injury Status: Acute (2) Severe sepsis Status: Acute (3) UTI (urinary tract infection) Status: Acute Qualifiers: Urinary tract infection type: acute cystitis Hematuria presence: without hematuria Qualified Codes: N30.00 - Acute cystitis without hematuria (4) Atrial fibrillation Status: Chronic Qualifiers: Atrial fibrillation type: paroxysmal Qualified Codes: I48.0 - Paroxysmal atrial fibrillation (5) Shingles Status: Acute Qualifiers: Herpes zoster complications: with nervous system involvement Herpes zoster neurologic complication detail: other postherpetic nervous system involvement Qualified Codes: B02.29 - Other postherpetic nervous system involvement (6) Ramos's palsy Status: Acute (7) Dizziness Status: Acute (8) Essential (primary) hypertension Status: Chronic (9) Hypothyroidism Status: Chronic Qualifiers: Hypothyroidism type: unspecified Qualified Codes: E03.9 - Hypothyroidism, unspecified Clinical Quality Measures DVT/VTE Risk/Contraindication: Risk Factor Score Per Nursin RFS Level Per Nursing on Admit: 4+=Very High JOSE F GONZALEZ MD Jul 25, 2020 11:20
[2020-07-25 11:34] LABS: HEMOGLOBIN 16.4 G/DL (11.5-16.0); MEAN PLATELET VOLUME 9.3 FL (7.4-10.4); RED CELL DISTRIBUTION WIDTH 17.1 % (10.0-14.5); WHITE BLOOD COUNT 11.6 10^3/uL (4.3-11.0)
[2020-07-25 11:56] LABS: CALCIUM 9.2 MG/DL (8.5-10.1); POTASSIUM 4.1 MMOL/L (3.6-5.0)
--- NOTE | 2020-07-25 12:29 | NUR ---
Swing Bed Note: SWB evaluation order received. Patient qualifies for swing bed for continued need of IV acyclovir (Shingles with Vertigo) along with Physical et Occupational therapies. Ultimate goal is to return home with at prior level of independent functioning. Anticipate admission to swing bed tomorrow 07/26/20. Thank you for this referral!
--- NOTE | 2020-07-25 12:46 | Physical Therapy Evaluation ---
PT Evaluation-General Medical Diagnosis Admission Date Jul 21, 2020 at 20:00 Medical Diagnosis: sepsis/generalized weakness/left renal stones Onset Date: Jul 21, 2020 Therapy Diagnosis Therapy Diagnosis: generalized weakness/debility Height/Weight Height (Feet): 5 Height (Inches): 2.00 Weight (Pounds): 172 Weight (Ounces): 0.0 Precautions Precautions/Isolations: Fall Prevention, Standard Precautions Weight Bear Status Right Lower Extremity: Right Weight Bearing/Tolerated Left Lower Extremity: Left Weight Bearing/Tolerated Referral Physician: Korey Reason for Referral: Evaluation/Treatment Medical History Pertinent Medical History: Atrial Fib, Arthritis, HTN, Hypothroidism, OA Additional Medical History Finley Omalley Syndrome Current History ER secondary to dizziness/dehydration/bells palsy/shingles Reviewed History: Yes Social History Home: Single Level Current Living Status: Spouse Entry Into Home: Level Entry Prior Prior Level of Function SCALE: Activities may be completed with or without assistive devices. 4-Ispxduwtck-ohdkczh completes the activity by him/herself with no assistance from a helper. 5-Set-up or Clean-up Assistance-helper sets up or cleans up; patient completes activity. [place] assists only prior to or following the activity. 4-Supervision or Touching Assistance-helper provides verbal cues and/or touching/steadying and/or contact guard assistance as patient completes activity. Assistance may be provided throughout the activity or intermittently. 3-Partial/Moderate Assistance-helper does LESS THAN HALF the effort. [place] lifts, holds or supports trunk or limbs, but provides less than half the effort. 2-Substantial/Maximal Assistance-helper does MORE THAN HALF the effort. [place] lifts or holds trunk or limbs and provides more than half the effort. 8-Vyecawbuo-qszgqa does ALL the effort. Patient does none of the effort to complete the activity. Or, the assistance of 2 or more helpers is required for the patient to complete the activity. If activity was not attempted, code reason: 7-Patient Refused. 9-Not Applicable-not attempted and the patient did not perform the activity before the current illness, exacerbation or injury. 10-Not Attempted due to Environmental Limitations-(lack of equipment, weather restraints, etc.). 88-Not Attempted due to Medical Conditions or Safety Concerns. Bed Mobility: 6 Transfers (B,C,W/C): 6 Gait: 6 Prior Devices Use: Walker (PRN) PT Evaluation-Current Subjective Patient in bed with washcloth over eyes. C/o dizziness but agrees to PT. Pain Numeric Pain Scale: 0-No Pain Location: No Pain Reported Objective Patient Orientation: Normal For Age ROM/Strength ROM Lower Extremities bilateral LE WFL Strength Lower Extremities 3/5 grossly bilateral LE Integumentary/Posture Integumentary refer to nursing notes Bowel Incontinence: No Bladder Incontinence: No Posture WFL Neuromuscular (Tone, Coordination, Reflexes) slightly diminished coordination due to dizziness and weakness Sensory Vision: Unable to Assess Hearing: Functional Sensation Right Lower Extremit: Intact Sensation Left Lower Extremity: Intact Transfers Roll Left to Right (QC): 5 Sit to Lying (QC): 4 Lying to Sitting/Side of Bed(Q: 3 Sit to Stand (QC): 3 Toilet Transfer (QC): 3 Gait Does the Patient Walk?: No and Walking Goal IS indicated Balance Sitting Static: Fair Sitting Dynamic: Fair Standing Static: Fair Standing Dynamic: Fair Assessment/Needs 79 y.o. female, tolerates minimal activity due to extreme dizziness and nausea with position change. Patient will benefit from skilled PT to address functional strength and mobility to improve current LOF. Rehab Potential: Fair PT Rubber Calender Helper Goals Snf Goals PT Snf Goals Time Frame: Aug 12, 2020 Roll Left & Right (QC): 6 Sit to Lying (QC): 6 Lying-Sitting on Side/Bed(QC): 6 Sit to Stand (QC): 6 Chair/Qks-er-Vculu Xfer(QC): 6 Toilet Transfer (QC): 6 Car Transfer (QC): 6 Does the Patient Walk: Yes Walk 10 feet (QC): 6 Walk 50ft with 2 Turns (QC): 6 Walk 150 ft (QC): 6 PT Plan Problem List Problem List: Activity Tolerance, Functional Strength, Balance, Gait, Transfer Treatment/Plan Treatment Plan: Continue Plan of Care Treatment Plan: Bed Mobility, Education, Functional Activity Khris, Functional Strength, Gait, Safety, Therapeutic Exercise, Transfers Treatment Duration: Aug 12, 2020 Frequency: 6 times per week Estimated Hrs Per Day: .25 hour per day Patient and/or Family Agrees t: Yes Time/GCodes Time In: 1140 Time Out: 1201 Total Billed Treatment Time: 21 Total Billed Treatment 1 visit EVMod 21 min WHITLEY DENNY PT Jul 25, 2020 12:46
[2020-07-25] MEDS: ACYCLOVIR INJECTION 800 MG in NS (IVPB) 250 ML IV SCH ×2 (12:57→23:17)
[2020-07-25] MEDS: D5 1/2 NS 1000 ML IV SOLUTION 1,000 ML IV SCH (12:59)
--- NOTE | 2020-07-25 15:15 | Occupational Therapy Eval ---
OT Evaluation-General/PLF Medical Diagnosis Admission Date Jul 21, 2020 at 20:00 Medical Diagnosis: sepsis/generalized weakness/left renal stones Onset Date: Jul 21, 2020 Therapy Diagnosis Therapy Diagnosis: Decreased ADL status Height/Weight Height (Feet): 5 Height (Inches): 2.00 Weight (Pounds): 172 Weight (Ounces): 0.0 Precautions Precautions/Isolations: Fall Prevention, Standard Precautions Referral Physician: Korey Referral Reason: Activity Tolerance, Self Care, Evaluation/Treatment, Strengthening/ROM Medical History Pertinent Medical History: Atrial Fib, Arthritis, HTN, Hypothroidism, OA Additional Medical History HTn, hypothyroidism, a fib, Finley Hund, CAD, chronic UTI Current History Pt increased dizziness/ nausea, admitting 07/21/20. 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 8-Kpftpazfoo-wlfoirc completes the activity by him/herself with no assistance from a helper. 5-Set-up or Clean-up Assistance-helper sets up or cleans up; patient completes activity. [place] assists only prior to or following the activity. 4-Supervision or Touching Assistance-helper provides verbal cues and/or touching/steadying and/or contact guard assistance as patient completes activity. Assistance may be provided throughout the activity or intermittently. 3-Partial/Moderate Assistance-helper does LESS THAN HALF the effort. [place] lifts, holds or supports trunk or limbs, but provides less than half the effort. 2-Substantial/Maximal Assistance-helper does MORE THAN HALF the effort. [place] lifts or holds trunk or limbs and provides more than half the effort. 7-[place]-salnfd does ALL the effort. Patient does none of the effort to complete the activity. Or, the assistance of 2 or more helpers is required for the patient to complete the activity. If activity was not attempted, code reason: 7-Patient Refused. 9-Not Applicable-not attempted and the patient did not perform the activity before the current illness, exacerbation or injury. 10-Not Attempted due to Environmental Limitations-(lack of equipment, weather restraints, etc.). 88-Not Attempted due to Medical Conditions or Safety Concerns. ADL PLOF Comments Pt IND at home without AE Self Care: Independent Functional Cognition: Independent DME/Equipment: Bath Chair, Grab Bars, Shower DME/Equipment Comments sc, walker, SPC Occupation: retired. Drive Self: Yes OT Current Status Subjective Pt seen in bed with L eye closed, R eye covered. Pt states no pain but immense nausea. Pt states nausea has been constant, though has recently become worse as medication decreased. Pt requests medication, nursing notified. Due to IV issues, medication cannot be administered at this time. Pt alert/ oriented, though denies activities during this time due to significance of nausea. Mental Status/Objective Patient Orientation: Normal For Age Attachments: IV Current Glasses/Contacts: Yes Hearing Aids: No Dentures/Partials: No Hand Dominance: Right Upper Extremity ROM WFL BUE Upper Extremity Coordination WFL BUE Upper Extremity Sensation WFL BUE Upper Extremity Strength WFL BUE per pt. ADL-Treatment Eating (QC): 6 (IND while in bed per pt. Pt states minimal food intake past few days due to nausea. ) Oral Hygiene (QC): 6 (IND in bed per clinical judgment based on pt's UE ability though nausea will limit.) On/Off Footwear (QC): 1 (TD based on clinical judgment) Toileting Hygiene (QC): 1 (TD based on clinical judgment) Other Treatments Pt completes hx and environment of home. Pt has walk in shower with sc and grab bars, has 2WW and cane at home. pt states IND with all ADLs/ IADLs prior to 3 weeks ago when R ear became painful/ hospitalized. Pt desires cold cloth, able to reach for and place on forehead. Pt completes UE movement, denies ther ex due to nausea. Pt educated on correct positioning in bed/ in recliner to decrease wound/ PNA risk and educated on 3 theraband ex, including: biceps, triceps, and back flies with demonstration. Pt agrees to complete when less nauseous. pt left in bed with all needs met, call light in reach. 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 2=Patient will verbalize/demonstrate understanding of assistive devices/modifications for ADL. 3=Patient will improve strength/tolerance for activity to enable patient to perform ADL's. OT Education/Plan Problem List/Assessment Assessment: Decreased Activ Tolerance, Impaired Bed Mobility, Impaired Funct Balance, Impaired I ADL's, Impaired Self-Care Skills Discharge Recommendations Plan/Recommendations: Continue POC Therapy Discharge Recommendati: Home & Family Treatment Plan/Plan of Care Treatment,Training & Education: Yes Patient would benefit from OT for education, treatment and training to promote independence in ADL's, mobility, safety and/or upper extremity function for ADL' s. Plan of Care: ADL Retraining, Caregiver Training, Functional Mobility, Group Exercise/Act as Ind, UE Funct Exercise/Act, W/C Management Training Treatment Duration: Aug 01, 2020 Frequency: 5 times per week Estimated Hrs Per Day: .25 hour per day Rehab Potential: Guarded Time/GCodes Start Time: 14:36 Stop Time: 14:50 Total Time Billed (hr/min): 14 Billed Treatment Time HARRY Virgen (14) EMMANUEL JOHN OTR Jul 25, 2020 15:15
[2020-07-25] MEDS: AMITRIPTYLINE 10 MG (ELAVIL) TAB PO SCH (21:10)
[2020-07-26 04:00] VITALS: BP 100/56
[2020-07-26] MEDS: ONDANSETRON 4 MG/2 ML (SDV) Z0FRAN IV PRN (05:42)
[2020-07-26] MEDS: LEVOTHYROXINE 112 MCG (LEVOTHROID) TAB PO SCH (05:42)
[2020-07-26] MEDS: D5 1/2 NS 1000 ML IV SOLUTION 1,000 ML IV SCH (05:42)
[2020-07-26 08:00] VITALS: BP 106/55
[2020-07-26] MEDS: APIXABAN 5 MG (ELIQUIS) TABLET PO SCH (08:58)
[2020-07-26] MEDS: meTOproloL SUCCINATE 50 MG (TOPROL XL) TAB PO SCH (09:00)
[2020-07-26] MEDS: LISINOPRIL HCTZ PO SCH (09:00)
[2020-07-26] MEDS: lisINopril 40 MG (PRINIVIL) TABLET PO SCH (09:00)
--- NOTE | 2020-07-26 09:58 | Discharge Summary ---
Diagnosis/Chief Complaint Date of Admission Jul 21, 2020 at 20:00 Date of Discharge Discharge Date: Jul 26, 2020 Admission Diagnosis Severe sepsis due to UTI Primary Care Yariel Mendoza MD Discharge Diagnosis (1) Acute kidney injury Status: Acute (2) Severe sepsis Status: Acute (3) UTI (urinary tract infection) Status: Acute (4) Atrial fibrillation Status: Chronic (5) Shingles Status: Acute (6) Ramos's palsy Status: Acute (7) Dizziness Status: Acute (8) Essential (primary) hypertension Status: Chronic (9) Hypothyroidism Status: Chronic Discharge Summary Discharge Physical Exam Allergies: Coded Allergies: [id number] Reductase Inhibitor (Verified Allergy, Intermediate, WEAKNESS, 08/19/19) aspirin (Unverified Allergy, Mild, HIVES, 08/19/19) methocarbamol (Unverified Allergy, Mild, HIVES, 08/19/19) Vitals & I&Os Vital Signs Date Time Temp Pulse Resp B/P (MAP) Pulse Ox O2 Delivery O2 Flow Rate FiO2 07/26/20 09:00 Room Air 07/26/20 08:00 36.4 63 20 106/55 (72) 93 Hospital Course Labs (last 24 hrs) Laboratory Tests 07/25/20 11:18: White Blood Count 11.6H, Red Blood Count 5.51, Hemoglobin 16.4#H, Hematocrit 48, Mean Corpuscular Volume 88, Mean Corpuscular Hemoglobin 30, Mean Corpuscular Hemoglobin Concent 34, Red Cell Distribution Width 17.1H, Platelet Count 216, Mean Platelet Volume 9.3, Sodium Level 135, Potassium Level 4.1, Chloride Level 102, Carbon Dioxide Level 20L, Anion Gap 13, Blood Urea Nitrogen 20H, Creatinine 1.00, Estimat Glomerular Filtration Rate 53, BUN/Creatinine Ratio 20, Glucose Level 96, Calcium Level 9.2 Microbiology 07/21/20 Blood Culture - Preliminary, Resulted No growth 07/21/20 Urine Culture - Final, Complete NO GROWTH Patient resulted labs reviewed. Imaging: Reviewed Imaging Report Discharge Home Medications: Active Scripts Active Reported Ciprofloxacin HCl 2.5 Ml Drops 1 Drop OD PRN PRN Tylenol Extra Strength (Acetaminophen) 500 Mg Tablet 500-1,000 Mg PO Q8H PRN Tramadol HCl 50 Mg Tablet 50 Mg PO Q8H PRN [Folic Acid ] 1MG Tab 1 Mg PO DAILY Methotrexate (Methotrexate Sodium) 2.5 Mg Tablet 12.5 Mg PO FRIDAY TAKES 5 (2.5MG) TABS ONCE WEEKLY Cephalexin 250 Mg Capsule 250 Mg PO HS Amitriptyline HCl 10 Mg Tablet 10 Mg PO HS Cartia Xt (Diltiazem HCl) 180 Mg Cap.er.24h 180 Mg PO DAILY Metoprolol Succinate 50 Mg Tab.er.24h 50 Mg PO DAILY Eliquis (Apixaban) 5 Mg Tablet 5 Mg PO BID Estradiol Tablet (Estradiol) 0.5 Mg Tablet 0.5 Mg PO FRIDAY Lisinopril-Hctz 20-12.5 mg Tab (Lisinopril/Hydrochlorothiazide) 1 Each Tablet 1 Tab PO DAILY Levothyroxine Sodium 100 Mcg Tablet 100 Mcg PO SUTUTHSA ALERNATES WITH 125MCG TABLET Levothyroxine Sodium 125 Mcg Tablet 125 Mcg PO MOWEFR ALTERNATES WITH 100MCG TABLET Instructions to patient/family Please see electronic discharge instructions given to patient. Clinical Quality Measures DVT/VTE Risk/Contraindication: Risk Factor Score Per Nursin RFS Level Per Nursing on Admit: 4+=Very High Problem Qualifiers (1) UTI (urinary tract infection): Urinary tract infection type: acute cystitis Hematuria presence: without hematuria Qualified Codes: N30.00 - Acute cystitis without hematuria (2) Atrial fibrillation: Atrial fibrillation type: paroxysmal Qualified Codes: I48.0 - Paroxysmal atrial fibrillation (3) Shingles: Herpes zoster complications: with nervous system involvement Herpes zoster neurologic complication detail: other postherpetic nervous system involvement Qualified Codes: B02.29 - Other postherpetic nervous system involvement (4) Hypothyroidism: Hypothyroidism type: unspecified Qualified Codes: E03.9 - Hypothyroidism, unspecified JOSE F GONZALEZ MD Jul 26, 2020 09:58
[2020-07-26] MEDS: MECLIZINE 25 MG (ANTIVERT) TAB PO PRN (09:59)
== END 2020-07-26 10:09 | disposition swing bed (61) | DRG 872 ==
LOC: EDUNIT# 15:35 → ER 15:36 → 4TH 20:00
PROVIDERS: ADMIT Internal Medicine; ATTEND Internal Medicine
DX: A41.9 Sepsis, unspecified organism (principal); N39.0 Urinary tract infection, site not specified; N17.9 Acute kidney failure, unspecified; E87.2 Acidosis; B02.21 Postherpetic geniculate ganglionitis; B02.29 Other postherpetic nervous system involvement; I48.20 Chronic atrial fibrillation, unspecified; R65.20 Severe sepsis without septic shock; G51.0 Bell's palsy; E86.0 Dehydration; I25.119 Atherosclerotic heart disease of native coronary artery with unspecified angina pectoris; I10 Essential (primary) hypertension; E89.0 Postprocedural hypothyroidism; J30.2 Other seasonal allergic rhinitis; R63.0 Anorexia; M19.91 Primary osteoarthritis, unspecified site; F41.9 Anxiety disorder, unspecified; Z79.01 Long term (current) use of anticoagulants; Z95.5 Presence of coronary angioplasty implant and graft; Z87.442 Personal history of urinary calculi
CPT/HCPCS: 36415; 51702; 70553; 74022; 74177; 76937; 80048; 80053; 81000; 83605; 83690; 83735; 84443; 85007; 85025; 85027; 85610; 85730; 87040; 87088; 93005; 93041; 96361; 96374; 96375